=== PATIENT | male | born 1945 | race Caucasian/White ===

== ENCOUNTER → 2022-05-12 09:32 | Outpatient (CLI) | payer MEDICARE, SELFPAY ==
[2022-05-12 10:37] LABS: Anion Gap 11.4 mEq/L (5-15); Blood Urea Nitrogen 17 mg/dl (9-20); Calcium 8.3 mg/dl (8.4-10.2); Carbon Dioxide 26 mmol/L (22.0-30.0); Chloride 106 mmol/L (98-107); Estimated Glomerular Filt Rate 54 ml/min (>60); GFR (African American) 65 ML/MIN (>60); Glucose 174 mg/dl (74-100); Potassium 4.4 mmoL/L (3.5-5.1); Sodium 139 mmol/L (136-145)
[2022-05-12 11:01] LABS: Hemoglobin A1C 9.2 % (4.0-6.0)
== END ==
PROVIDERS: PCP Family Medicine; Visit Provider Family Medicine
DX: R73.9 Hyperglycemia, unspecified (principal)
CPT/HCPCS: 36415; 80048; 83036

== ENCOUNTER → 2022-11-14 17:50 | Outpatient (CLI) | payer MEDICARE, SELFPAY ==
[2022-11-14 18:30] LABS: Basophils # 0.1 K/mm3 (0-0.2); Basophils % 0.7 % (0.1-2.0); Eosinophils # 0.3 K/mm3 (0.0-0.4); Eosinophils % 4.4 % (0.1-12.0); Hematocrit 34.9 % (42.0-52.0); Hemoglobin 11.2 g/dL (14.1-18.0); Lymphocytes # 1.4 K/mm3 (0.7-4.5); Lymphocytes % 18.7 % (10-50); Mean Corpuscular Hemoglobin 30.5 pg (27.0-31.2); Mean Corpuscular Volume 95.3 fl (80-94); Mean Platelet Volume 7.9 fl (7.4-10.4); Monocytes # 0.6 K/mm3 (0.1-1.0); Monocytes % 8.3 % (1.7-9.3); Neutrophils # 5.1 K/mm3 (1.8-7.8); Neutrophils % 67.9 % (37.0-80.0); Platelet Count 171 K/mm3 (142-424); Red Blood Count 3.66 M/mm3 (4.60-6.20); Red Cell Distribution Width 13.9 % (11.5-17.5); White Blood Count 7.5 K/mm3 (4.8-10.8)
[2022-11-14 18:48] LABS: Alanine Aminotransferase 36 U/L (12-78); Albumin Level 3.4 g/dl (3.5-5.0); Albumin/Globulin Ratio 0.9 (1.1-1.8); Alkaline Phosphatase 231 U/L (38-126); Anion Gap 14.4 mEq/L (5-15); Aspartate Amino Transferase 48 U/L (17-59); Bilirubin,Total 0.4 mg/dl (0.2-1.3); Blood Urea Nitrogen 19 mg/dl (9-20); Calcium 8.5 mg/dl (8.4-10.2); Carbon Dioxide 27 mmol/L (22.0-30.0); Chloride 102 mmol/L (98-107); Creatine Kinase 54 U/L (55-170); Estimated Glomerular Filt Rate 65 ml/min (>60); GFR (African American) 79 ML/MIN (>60); Globulin 3.8 g/dL (1.3-3.2); Glucose 108 mg/dl (74-100); Potassium 4.4 mmoL/L (3.5-5.1); Sodium 139 mmol/L (136-145); Total Protein,Serum 7.2 g/dl (6.3-8.2)
[2022-11-14 18:54] LABS: C-Reactive Protein 24.8 mg/L (0-4)
[2022-11-14 19:45] LABS: Erythrocyte Sedimentation Rate 71 mm/hr (0-20)
== END ==
PROVIDERS: PCP Internal Medicine Infectious Disease; Visit Provider Internal Medicine Infectious Disease
DX: R78.81 Bacteremia (principal); T81.49XD Infection following a procedure, other surgical site, subsequent encounter; R79.82 Elevated C-reactive protein (CRP)
CPT/HCPCS: 80053; 82550; 85025; 85651; 86140

== ENCOUNTER → 2022-11-21 17:40 | Outpatient (CLI) | payer MEDICARE, SELFPAY ==
[2022-11-21 19:27] LABS: Basophils % 0.1 % (0.1-2.0); Eosinophils # 0.8 K/mm3 (0.0-0.4); Eosinophils % 9.7 % (0.1-12.0); Hematocrit 33.8 % (42.0-52.0); Hemoglobin 10.9 g/dL (14.1-18.0); Lymphocytes % 11.9 % (10-50); Mean Corpuscular HGB Conc 32.1 g/dL (31.8-35.4); Mean Corpuscular Volume 93.3 fl (80-94); Mean Platelet Volume 8.7 fl (7.4-10.4); Monocytes # 0.8 K/mm3 (0.1-1.0); Monocytes % 9.2 % (1.7-9.3); Neutrophils # 5.9 K/mm3 (1.8-7.8); Neutrophils % 68.9 % (37.0-80.0); Platelet Count 132 K/mm3 (142-424); Red Blood Count 3.62 M/mm3 (4.60-6.20); White Blood Count 8.5 K/mm3 (4.8-10.8)
[2022-11-21 19:36] LABS: Alanine Aminotransferase 39 U/L (12-78); Albumin Level 3.1 g/dl (3.5-5.0); Albumin/Globulin Ratio 0.8 (1.1-1.8); Alkaline Phosphatase 199 U/L (38-126); Aspartate Amino Transferase 59 U/L (17-59); Bilirubin,Total 0.5 mg/dl (0.2-1.3); Blood Urea Nitrogen 17 mg/dl (9-20); Calcium 8.2 mg/dl (8.4-10.2); Carbon Dioxide 23 mmol/L (22.0-30.0); Chloride 103 mmol/L (98-107); Creatine Kinase 50 U/L (55-170); Estimated Glomerular Filt Rate 65 ml/min (>60); GFR (African American) 79 ML/MIN (>60); Globulin 3.9 g/dL (1.3-3.2); Glucose 110 mg/dl (74-100); Sodium 138 mmol/L (136-145)
[2022-11-21 19:42] LABS: C-Reactive Protein 126.5 mg/L (0-4)
[2022-11-21 19:59] LABS: Erythrocyte Sedimentation Rate 103 mm/hr (0-20)
== END ==
PROVIDERS: PCP Orthopaedic Surgery; Visit Provider Orthopaedic Surgery
DX: T81.49XD Infection following a procedure, other surgical site, subsequent encounter (principal); Z79.2 Long term (current) use of antibiotics
CPT/HCPCS: 80053; 82550; 85025; 85651; 86140

== ENCOUNTER → 2022-11-28 16:05 | Outpatient (CLI) | payer MEDICARE, SELFPAY ==
[2022-11-28 17:56] LABS: Basophils % 0.4 % (0.1-2.0); Eosinophils # 0.8 K/mm3 (0.0-0.4); Hematocrit 31.5 % (42.0-52.0); Lymphocytes # 0.8 K/mm3 (0.7-4.5); Mean Corpuscular HGB Conc 31.7 g/dL (31.8-35.4); Mean Corpuscular Hemoglobin 29.4 pg (27.0-31.2); Mean Corpuscular Volume 92.7 fl (80-94); Mean Platelet Volume 8.7 fl (7.4-10.4); Monocytes # 0.5 K/mm3 (0.1-1.0); Monocytes % 7.6 % (1.7-9.3); Neutrophils # 4.3 K/mm3 (1.8-7.8); Neutrophils % 66.9 % (37.0-80.0); Platelet Count 132 K/mm3 (142-424); Red Cell Distribution Width 14.3 % (11.5-17.5); White Blood Count 6.4 K/mm3 (4.8-10.8)
[2022-11-28 18:00] LABS: Chloride 107 mmol/L (98-107); Potassium 3.8 mmoL/L (3.5-5.1); Sodium 141 mmol/L (136-145)
[2022-11-28 18:02] LABS: Alanine Aminotransferase 44 U/L (12-78); Aspartate Amino Transferase 51 U/L (17-59); Blood Urea Nitrogen 9 mg/dl (9-20); Estimated Glomerular Filt Rate 82 ml/min (>60); GFR (African American) 99 ML/MIN (>60)
[2022-11-28 18:03] LABS: Albumin Level 2.5 g/dl (3.5-5.0); Albumin/Globulin Ratio 0.6 (1.1-1.8); Alkaline Phosphatase 200 U/L (38-126); Anion Gap 12.8 mEq/L (5-15); Bilirubin,Total 0.3 mg/dl (0.2-1.3); Calcium 8.4 mg/dl (8.4-10.2); Carbon Dioxide 25 mmol/L (22.0-30.0); Creatine Kinase 88 U/L (55-170); Glucose 131 mg/dl (74-100); Total Protein,Serum 6.5 g/dl (6.3-8.2)
[2022-11-28 18:08] LABS: C-Reactive Protein 63.5 mg/L (0-4)
[2022-11-28 18:27] LABS: Erythrocyte Sedimentation Rate > 140 mm/hr (0-20)
== END ==
PROVIDERS: PCP Internal Medicine Infectious Disease; Visit Provider Internal Medicine Infectious Disease
DX: Z79.2 Long term (current) use of antibiotics (principal); T81.49XD Infection following a procedure, other surgical site, subsequent encounter
CPT/HCPCS: 80053; 82550; 85025; 85651; 86140

== ENCOUNTER → 2022-12-05 11:07 | Outpatient (CLI) | payer MEDICARE, SELFPAY ==
[2022-12-05 11:40] LABS: Basophils % 0.5 % (0.1-2.0); Eosinophils # 0.4 K/mm3 (0.0-0.4); Eosinophils % 6.2 % (0.1-12.0); Hematocrit 32.2 % (42.0-52.0); Hemoglobin 10.3 g/dL (14.1-18.0); Lymphocytes # 0.8 K/mm3 (0.7-4.5); Lymphocytes % 13.3 % (10-50); Mean Corpuscular HGB Conc 32.1 g/dL (31.8-35.4); Mean Corpuscular Hemoglobin 29.9 pg (27.0-31.2); Mean Corpuscular Volume 93.2 fl (80-94); Mean Platelet Volume 7.9 fl (7.4-10.4); Monocytes # 0.4 K/mm3 (0.1-1.0); Monocytes % 6.5 % (1.7-9.3); Neutrophils # 4.1 K/mm3 (1.8-7.8); Neutrophils % 73.4 % (37.0-80.0); Platelet Count 135 K/mm3 (142-424); Red Blood Count 3.46 M/mm3 (4.60-6.20); Red Cell Distribution Width 14.6 % (11.5-17.5); White Blood Count 5.6 K/mm3 (4.8-10.8)
[2022-12-05 12:03] LABS: Erythrocyte Sedimentation Rate 127 mm/hr (0-20)
[2022-12-05 12:22] LABS: Alanine Aminotransferase 29 U/L (12-78); Albumin Level 2.7 g/dl (3.5-5.0); Albumin/Globulin Ratio 0.6 (1.1-1.8); Alkaline Phosphatase 165 U/L (38-126); Anion Gap 15.2 mEq/L (5-15); Aspartate Amino Transferase 37 U/L (17-59); Bilirubin,Total 0.4 mg/dl (0.2-1.3); Blood Urea Nitrogen 10 mg/dl (9-20); Calcium 8.4 mg/dl (8.4-10.2); Carbon Dioxide 26 mmol/L (22.0-30.0); Chloride 105 mmol/L (98-107); Creatine Kinase 50 U/L (55-170); Estimated Glomerular Filt Rate 59 ml/min (>60); GFR (African American) 71 ML/MIN (>60); Globulin 4.4 g/dL (1.3-3.2); Glucose 96 mg/dl (74-100); Potassium 4.2 mmoL/L (3.5-5.1); Sodium 142 mmol/L (136-145); Total Protein,Serum 7.1 g/dl (6.3-8.2)
[2022-12-05 12:30] LABS: C-Reactive Protein 16.8 mg/L (0-4)
== END ==
PROVIDERS: PCP Internal Medicine Infectious Disease; Visit Provider Internal Medicine Infectious Disease
DX: R78.81 Bacteremia (principal); T81.49XD Infection following a procedure, other surgical site, subsequent encounter
CPT/HCPCS: 80053; 82550; 85025; 85651; 86140

== ENCOUNTER → 2022-12-12 20:19 | Outpatient (CLI) | payer MEDICARE, SELFPAY ==
[2022-12-12 21:42] LABS: Basophils % 0.4 % (0.1-2.0); Eosinophils # 0.3 K/mm3 (0.0-0.4); Eosinophils % 6.1 % (0.1-12.0); Hematocrit 31.6 % (42.0-52.0); Hemoglobin 10.2 g/dL (14.1-18.0); Lymphocytes # 0.8 K/mm3 (0.7-4.5); Lymphocytes % 19.8 % (10-50); Mean Corpuscular HGB Conc 32.1 g/dL (31.8-35.4); Mean Corpuscular Hemoglobin 29.5 pg (27.0-31.2); Mean Corpuscular Volume 91.8 fl (80-94); Mean Platelet Volume 9.8 fl (7.4-10.4); Monocytes # 0.4 K/mm3 (0.1-1.0); Monocytes % 9.6 % (1.7-9.3); Neutrophils # 2.6 K/mm3 (1.8-7.8); Neutrophils % 64.1 % (37.0-80.0); Platelet Count 92 K/mm3 (142-424); Red Blood Count 3.45 M/mm3 (4.60-6.20)
[2022-12-12 21:44] LABS: Chloride 106 mmol/L (98-107); Potassium 3.9 mmoL/L (3.5-5.1); Sodium 142 mmol/L (136-145)
[2022-12-12 21:46] LABS: Alanine Aminotransferase 38 U/L (12-78); Alkaline Phosphatase 208 U/L (38-126); Aspartate Amino Transferase 64 U/L (17-59); Bilirubin,Total 0.4 mg/dl (0.2-1.3); Blood Urea Nitrogen 8 mg/dl (9-20); Estimated Glomerular Filt Rate 82 ml/min (>60); GFR (African American) 99 ML/MIN (>60)
[2022-12-12 21:47] LABS: Albumin Level 2.6 g/dl (3.5-5.0); Albumin/Globulin Ratio 0.6 (1.1-1.8); Anion Gap 15.9 mEq/L (5-15); Calcium 8.4 mg/dl (8.4-10.2); Carbon Dioxide 24 mmol/L (22.0-30.0); Creatine Kinase 72 U/L (55-170); Globulin 4.2 g/dL (1.3-3.2); Glucose 109 mg/dl (74-100); Total Protein,Serum 6.8 g/dl (6.3-8.2)
[2022-12-12 22:14] LABS: C-Reactive Protein 13.2 mg/L (0-4)
[2022-12-12 23:13] LABS: Erythrocyte Sedimentation Rate 101 mm/hr (0-20)
== END ==
PROVIDERS: PCP Internal Medicine Infectious Disease; Visit Provider Internal Medicine Infectious Disease
DX: R78.81 Bacteremia (principal); T81.49XD Infection following a procedure, other surgical site, subsequent encounter
CPT/HCPCS: 80053; 82550; 85025; 85651; 86140

== ENCOUNTER → 2023-03-12 12:09 | Outpatient (CLI) | payer OTHER, SELFPAY ==
--- OUTSIDE RECORDS SUMMARY | 2023-03-12 12:12 | XMS_ITS | Clinical Summary ---
Author Name Unknown Address [address] [place] [address] Phone Organization [facility] Address [address] [place] [address] Phone Care Team Providers Care Aquaculture Director Name Role Phone Darrius Cole MD Unavailable [phone] TREMAYNE REY MD Primary Care Provider [phone] Reason for Visit and Chief Complaint The Chief Complaint is: L4-L5 Fusion POV Problems Includes: Problems addressed during this encounter and other active Problems All Visits Onset Date Resolved Date Provider Condition S tatus Lower Back Pain Radiating To the Legs 07/08/2018 Darrius Cole MD Active Plan of Treatment Fall Risk Assessment: This patient has been identified as a fall risk. Balance/gait along with postural blood pressure, vision and home fall hazards have been assessed. Medications have been reviewed, and recommendations made with regard to contributing factors for future falls. Plan of care: Consideration of vitamin D supplementation along with balance and strength training with consideration for formal physical therapy has been discussed with the patient. - Last Documented On 12/07/2022 4:18PM ; [facility] Patient was seen by myself and Dr. Douglas Mendoza PA-C. Patient will follow up 6 weeks repeat lumbar spine x-rays. His laboratory markers are likely just elevated still from the surgery itself. We will let infectious disease just continue to monitor these presently we do not feel we need to get an MRI of his back. - Last Documented On 12/07/2022 4:18PM ; [facility] Future Appointments Date Time Loc
--- OUTSIDE RECORDS SUMMARY | 2023-03-12 12:12 | XMS_ITS | Clinical Summary ---
Author Name Unknown Address [address] [place] [address] Phone Organization [facility] , [facility] Address [address] [place] [place] [address] Phone Care Team Providers Care Banquet Attendant Name Role Phone Darrius Cole MD Unavailable [phone] TREMAYNE REY MD Primary [...] with the patient. - Last Documented On 01/26/2023 9:18AM ; [facility], [facility] Future Appointments Date Time Location Provi daniel Follow [facility]2023 8[facility] EMMONAKEvin Cole MD Instructions to patient Lose weight
--- OUTSIDE RECORDS SUMMARY | 2023-03-12 12:12 | XMS_ITS ---
Care Plan - [facility], [facility] Created on: March 12, 2023 Roly Cole : 1945 Sex: Male Author Name Unknown Address [address] [place] [address] Phone Organization [facility] Address [address] [place] [address] Phone Care Team Providers Care Wet And Dry Sugar Bin Operator Name Role Phone Darrius Cole MD Unavailable [phone] TREMAYNE REY MD Primary Care Provider [phone]
--- OUTSIDE RECORDS SUMMARY | 2023-03-12 12:12 | XMS_ITS ---
Author Name Unknown Address [address] [place] [address] Phone Organization [facility] Address [address] [place] [address] Phone Care Team Providers Care Application Support Administrator Name Role Phone Darrius Cole MD Unavailable [phone] TREMAYNE REY MD Primary Care Provider [phone] Problems Includes: Active, inactive, and resolved Problems All Visits Onset Date Resolved Date Provider Condition S tatus Lower Back Pain Radiating To the Legs 07/08/2018 Darrius Cole MD Active Plan of Treatment Pending Tests Order Diagnosis Results Due Ordering P rovider Radiology - MRI MRI Lumbar Spine 02/07/22 Edwin Mendoza PA-C Future Appointments Date Time Location Provi daniel Follow Up 04/26/2023 8:15[facility] [place] Darrius Cole MD Instructions to patient Lose weight Last Documented On 3 9:33AM ; [facility] Lose weight Last Documented On 3 10:20AM ; [facility] Lose weight Last Documented On 3 1:05PM ; B
--- OUTSIDE RECORDS SUMMARY | 2023-03-12 12:13 | XMS_ITS | Clinical Summary ---
Author Name Unknown Address [address] [place] [address] Phone Organization [facility] Address [address] [place] [address] Phone Care Team Providers Care Manager Hematology Name Role Phone Darrius Cole MD Unavailable [phone] TREMAYNE REY MD Primary Care Provider [phone] Reason for Visit and Chief Complaint The Chief Complaint is: L4-5 Fusion Problems Includes: Problems addressed during this encounter [...] with the patient. - Last Documented On 11/15/2022 1:42PM ; [facility] Patient was seen by myself Basil Mendoza PA-C. Patient will follow up in one week we will take every other staple out today put a dressing on this and follow back up in a week no longer use the incisional wound VAC - Last Documented On 11/15/2022 1:42PM ; [facility] Pending Tests Order Diagnosis Results Due [facility] - [facility] MRI Lumbar Spine 02/07/22 Edwin
--- OUTSIDE RECORDS SUMMARY | 2023-03-12 12:13 | XMS_ITS | Clinical Summary ---
Author Name Unknown Address [address] [place] [address] Phone Organization [facility] , [facility] Address [address] [place] [address] Phone Care Team Providers Care Die Drawing Checker Name Role Phone Darrius Cole MD Unavailable [phone] TREMAYNE REY MD Primary Care Provider [phone] Reason for Visit and Chief Complaint The Chief Complaint is: La-L5 Fusion POV Problems Includes: Problems addressed during [...] with the patient. - Last Documented On 11/22/2022 1:43PM ; [facility] Patient was seen by myself Basil Mendoza PA-C. Patient will follow up in [address] Cole we will get the rest of della out today we will get repeat x-rays next visit he will continue to follow-up with infectious disease. - Last Documented On 11/22/2022 1:43PM ; [facility] Pending Tests Order Diagnosis Results Due Ordering rovider Radiology - MRI MRI Lumbar Spine
--- OUTSIDE RECORDS SUMMARY | 2023-03-12 12:14 | XMS_ITS | Clinical Summary ---
Author Name Unknown Address [address] [place] [address] Phone Organization [facility], [facility] Address [address] [place] [address] Phone Care Team Providers Care Admiralty Lawyer Name Role Phone Douglas SOW, Darrius Witt Unavailable [phone] TREMAYNE REY MD Primary Care Provider [phone] Reason for Visit and Chief Complaint BRACE FITTING Problems Includes: Problems addressed during this encounter and other active Problems All Visits Onset Date Resolved Date Provider Condition S tatus Lower Back Pain Radiating To the Legs 07/08/2018 Darrius Cole MD Active Plan of Treatment Future Appointments Date Time Location Provi daniel Follow Up 04/26/2023 8:15AM [facility] Darrius Cole MD Assessments Includes: Assessments from this encounter No Assessments Recorded Medical Equipment - Implanted Devices Includes: Current Devices No Medical Equipment Recorded Medications Includes: Medications discussed during this encounter and other current Medications Current Medications (continue as prescribed) metFORMIN HCl 500 MG Oral Tablet 11/07/2022 Provider : TREMAYNE REY MD Diagnosis:
--- NOTE | 2023-03-12 12:23 | CA_ITS ---
APPROVED REPORT EXAM: Comprehensive 2D, Doppler, and color-flow Echocardiogram Irradiated Fuel Handler: Lindy Norris RVT Ht: 5 ft 8 in Wt: 178lbs BSA: 1.94 BP: 122/80 mmHg Indications: ISCHEMIC HEART DISEASE,DM,HTN 2D Dimensions LVOT 2.17 cm (M/F) 1.5-2.5 LA Volume 51.30 mL LA Volume Index 26.31 mL/m2 (M/F) 16-34 M-Mode Dimensions RVDd 3.54 cm (0.9-2.6) LA Diam 4.28 cm (1.9-4.0) LVDd 4.63 cm (3.5-5.7) Ao Diam 3.35 cm (2.0-3.7) LVDs 3.14 cm (3.5-5.7) IVSd 1.13 cm (0.6-1.1) PWd 0.48 cm (0.6-1.1) EF (Teich) 60.40% FS 32.20% EDV (Teich) 98.80 mL ESV (Teich) 39.10 mL LV Diastology E Decel Time 150.00 (160-240 msec) E/A Ratio 0.9 MED E' 7.30 (< 7 cm/sec) E'/MED E' Ratio 9.81 (>14) LAT E' 8.30 (<10 cm/sec) E/LAT E' Ratio 8.63 (>14) Aortic Valve LVOT Max 73.00 (70-110 cm/s) LVOT VTI 16.71 cm AoV Peak Jewel. 97.00 (50-130 cm/s) AO Peak GR. 3.80 mmHg AO Mean GR. 1.70 (<5 mmHg) AO VTI 18.17 (18-25 cm) JEANNIE (VTI) 3.40 (2.5-4.5 cm2) Mitral Valve MV E Max Jewel. 72.00 (40-130 cm/s) MV A Velocity 78.00 (40-130 cm/s) E/A Ratio 0.92 MV Decel. Time 150.00 (160-240 ms) MV PHT 44.00 ms Pulmonary Valve PV Peak Velocity 60.00 (50-150 cm/s) Tricuspid Valve TR P. Velocity 174.00 cm/s RAP Estimate 10.00 mmHg RVSP 22.20 mmHg Left Ventricle The left ventricle is normal size. The left ventricular systolic function is normal. The left ventricular ejection fraction is within the normal range. There is increased LV wall thickness. There is normal LV segmental wall motion. The left ventricular diastolic function is normal. LVEF is 50-55%. Right Ventricle The right ventricle is mildly dilated. The right ventricular systolic function is normal. Atria The left atrium size is normal. The right atrium size is normal. There is no Doppler evidence of interatrial shunt. Aortic Valve The aortic valve is trileaflet. The aortic valve opens well. There is no aortic valvular stenosis. Trace aortic regurgitation. Mitral Valve Mild mitral annular calcification. The mitral valve leaflets are mildly thickened. There is mild thickening of the mitral valve chordae. Mild mitral regurgitation. Tricuspid Valve The tricuspid valve leaflets are thin and pliable. Trace tricuspid regurgitation. RVSP is 20- 25 mmHg. Pulmonic Valve The pulmonary valve is normal in structure. Trace pulmonic regurgitation. Great Vessels The aortic root is normal in size. The ascending aorta is not well-visualized. IVC is normal in size and collapses >50% with inspiration. Pericardium There is no pericardial effusion. Other Information Study Quality: Fair Conclusion Normal biventricular systolic function. Mild RV dilation. Mild MR. Electronically signed by : Yudelka Jeter MD 03/18/2023 19:49:19
== END ==
LOC: RT 12:10
PROVIDERS: PCP Family Medicine; Visit Provider Chiropractor
DX: I25.9 Chronic ischemic heart disease, unspecified (principal)
CPT/HCPCS: 93306

== ENCOUNTER 2023-05-21 20:02 | Outpatient (CLI) | payer MEDICARE, SELFPAY ==
[2023-05-21 17:28] LABS: Microalbumin/Creatinine Ratio 11.6
[2023-05-21 17:32] LABS: Creatinine,Urine Random 106 mg/dL (Not Estab.)
[2023-05-21 17:42] LABS: Chloride 106 mmol/L (98-107); Sodium 135 mmol/L (136-145)
[2023-05-21 17:43] LABS: Potassium 4.8 mmoL/L (3.5-5.1)
[2023-05-21 17:45] LABS: Alanine Aminotransferase 27 U/L (12-78); Albumin Level 3.6 g/dl (3.5-5.0); Albumin/Globulin Ratio 0.9 (1.1-1.8); Alkaline Phosphatase 160 U/L (38-126); Anion Gap 9.8 mEq/L (5-15); Aspartate Amino Transferase 47 U/L (17-59); Bilirubin,Total 0.7 mg/dl (0.2-1.3); Blood Urea Nitrogen 17 mg/dl (9-20); Carbon Dioxide 24 mmol/L (22.0-30.0); Cholesterol 98 mg/dl (140-200); Estimated Glomerular Filt Rate 42 ml/min (>60); GFR (African American) 51 ML/MIN (>60); Globulin 4.1 g/dL (1.3-3.2); Glucose 112 mg/dl (74-100); Total Protein,Serum 7.7 g/dl (6.3-8.2); Triglycerides 69 mg/dl (30-150); VLDL Cholesterol 14 mg/dL (0-40)
[2023-05-21 17:46] LABS: Calcium 8.7 mg/dl (8.4-10.2); Chol/HDL Ratio 2.8 (1-3.5); HDL Cholesterol 35 mg/dl (40-60)
[2023-05-21 17:49] LABS: Basophils % 0.6 % (0.1-2.0); Eosinophils # 0.2 K/mm3 (0.0-0.4); Eosinophils % 3.4 % (0.1-12.0); Hematocrit 37.1 % (42.0-52.0); Hemoglobin 12.2 g/dL (14.1-18.0); Lymphocytes % 23.6 % (10-50); Mean Corpuscular HGB Conc 32.9 g/dL (31.8-35.4); Mean Corpuscular Volume 85.1 fl (80-94); Mean Platelet Volume 9.7 fl (7.4-10.4); Monocytes # 0.4 K/mm3 (0.1-1.0); Monocytes % 8.9 % (1.7-9.3); Neutrophils # 2.7 K/mm3 (1.8-7.8); Neutrophils % 63.5 % (37.0-80.0); Platelet Count 116 K/mm3 (142-424); Red Blood Count 4.36 M/mm3 (4.60-6.20); White Blood Count 4.3 K/mm3 (4.8-10.8)
[2023-05-21 17:56] LABS: Direct LDL Cholesterol 47.76 mg/dL (100-129)
[2023-05-21 18:04] LABS: Hemoglobin A1C 6.1 % (4.0-6.0)
[2023-05-21 18:16] LABS: Thyroid Stimulating Hormone 6.46 uIU/mL (0.465-4.68)
== END 2023-05-21 23:59 ==
LOC: LAB.DROPOF 20:03
PROVIDERS: PCP Family Medicine; Visit Provider Family Medicine
DX: I10 Essential (primary) hypertension (principal); E11.9 Type 2 diabetes mellitus without complications; E78.5 Hyperlipidemia, unspecified; E03.9 Hypothyroidism, unspecified
CPT/HCPCS: 80053; 80061; 82043; 82570; 83036; 84443; 85025

== ENCOUNTER 2023-06-06 18:02 | Outpatient (CLI) | payer MEDICARE, SELFPAY ==
[2023-06-06 16:56] LABS: Anion Gap 8.4 mEq/L (5-15); Blood Urea Nitrogen 16 mg/dl (9-20); Calcium 9.1 mg/dl (8.4-10.2); Carbon Dioxide 29 mmol/L (22.0-30.0); Chloride 108 mmol/L (98-107); Estimated Glomerular Filt Rate 54 ml/min (>60); GFR (African American) 65 ML/MIN (>60); Glucose 122 mg/dl (74-100); Potassium 4.4 mmoL/L (3.5-5.1); Sodium 141 mmol/L (136-145)
[2023-06-06 17:28] LABS: Thyroid Stimulating Hormone 5.12 uIU/mL (0.465-4.68)
== END 2023-06-06 23:59 ==
LOC: LAB.DROPOF 18:05
PROVIDERS: PCP Family Medicine; Visit Provider Family Medicine
DX: N28.9 Disorder of kidney and ureter, unspecified (principal); E03.9 Hypothyroidism, unspecified; I10 Essential (primary) hypertension; E11.9 Type 2 diabetes mellitus without complications; Z79.899 Other long term (current) drug therapy
CPT/HCPCS: 80048; 84443

== ENCOUNTER 2024-06-03 18:22 | Emergency (ER) | payer MEDICARE, SELFPAY ==
[2024-06-03 18:22] VITALS: BP 173/80; PULSE 81; RESP 18; TEMP 36.6; O2SAT 99; BMI 29.5
--- NOTE | 2024-06-03 19:01 | PC.NURSE ---
ROUNDED ON THE PT. THE PT VOICES THAT HE DOES NOT NEED ANYTHING AT THIS TIME. CALL LIGHT IS WITHIN REACH OF THE PT.
--- NOTE | 2024-06-03 19:41 | CT_ITS ---
PROCEDURE INFORMATION: Exam: CT Lumbar Spine Without Contrast Exam date and time: 06/03/2024 7:56 PM Age: 79 years old Clinical indication: Injury or trauma; Fall; Blunt trauma (contusions or hematomas); Additional info: Fall, L sided new sciatica TECHNIQUE: Imaging protocol: Computed tomography of the lumbar spine without contrast. Radiation optimization: All CT scans at this facility use at least one of these dose optimization techniques: automated exposure control; mA and/or kV adjustment per patient size (includes targeted exams where dose is matched to clinical indication); or iterative reconstruction. COMPARISON: No relevant prior studies available. FINDINGS: Bones/joints: Posterior fusion of L4-L5. There is lucency around the left pedicle screws of L4 and L5 as well as the right pedicle screw of L5. Multilevel degenerative changes of the lumbar spine producing multiple levels of mild spinal canal stenosis. Lungs: Mild scarring and atelectasis in the lower lungs. Spleen: Mild splenomegaly. Kidneys and ureters: Nonobstructing right renal calculus. Stomach and bowel: Moderate sigmoid diverticulosis without diverticulitis. There is a very short segment of small bowel in the pelvis on image 90 series 3 that is mildly dilated. This is most likely peristalsis, less likely mild ileus. Soft tissues: Unremarkable. IMPRESSION: 1. No acute fracture or malalignment of the lumbar spine. 2. Posterior fusion of L4-L5. There is lucency around the left pedicle screws of L4 and L5 as well as the right pedicle screw of L5. This favors chronic loosening. 3. Nonobstructing right renal calculus.
[2024-06-03] MEDS: predniSONE 20MG TAB 40 MG PO (19:51)
[2024-06-03] MEDS: METHOCARBAMOL 500MG TABLET 1500 MG PO (19:51)
[2024-06-03] MEDS: ACETAMINOPHEN 500MG TAB 1000 MG PO (19:51)
--- NOTE | 2024-06-03 20:29 | HMH.EDGENADL ---
Discharge Plan Disposition Patient Disposition: Home, Self-Care Prescriptions Prescriptions: New prednisone 20 mg tablet 40 mg PO DAILY 5 Days Qty: 10 0RF methocarbamol 750 mg tablet 1,500 mg PO TID 5 Days Qty: 30 0RF No Action sulfamethoxazole-trimethoprim [Bactrim DS] 800-160 mg tablet 1 tab PO BID 10 Days Qty: 20 0RF codeine-guaifenesin 10-100 mg/5 mL liquid 5 ml PO Q6H PRN (Reason: cough) Qty: 120 1RF furosemide 20 mg tablet 20 mg PO DAILY potassium chloride 10 mEq tablet extended release 10 meq PO DAILY Jardiance 10 mg tablet 10 mg PO DAILY atorvastatin 40 mg tablet 40 mg PO HS aspirin 81 mg tablet,delayed release (DR/EC) 81 mg PO DAILY levothyroxine 100 mcg tablet 100 mcg PO DAILY 90 Days Qty: 90 0RF Referrals Follow up/Referrals: Heidi Barksdale PA [Primary Care Provider] - See instructions Activity Restrictions/Add. Instructions Additional Instructions/Restrictions: Call your family doctor to establish care for this visit to the emergency department and schedule follow-up within 48 hours to ensure improvement. If you have any worsening of your condition or any other concerning signs or symptoms, return to the emergency department or your primary care doctor for further evaluation. Muscle relaxer 3 times daily as needed. Robaxin can cause you to feel drowsy. Do not drive, operate heavy machinery, or engage in any activity that may make you tired, fall asleep, and because harm to yourself or others while taking this medication. Prednisone each morning for the next 4 days. Keep close eyes on your sugars and make sure that your glucose is not having significant rises. Also be strict about diet while on prednisone to prevent significant glucose spikes. Clinical Impressions Clinical Impression: Lumbosacral radiculopathy Instructions Patient Instructions: DI for Low Back Pain Print Language Print Language: Lao Discharge ED Provider: Souleymane Espinoza General Adult HPI General Chief complaint: Back Pain/Injury Stated complaint: BACK PAIN Time Seen by Provider: 06/03/24 18:43 Mode of Arrival: EMS Source of Information: Patient Limitations: No Limitations Description of Symptoms (Recalled from ER Triage Doc. by RN): Pt arrives via [facility] ems for evaluation of back pain. 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 [facility] and was in the bathroom and was unable to get off the toilet. Since then pt has not been able to tolerate walking, and has had a constant sharp pain. Pt has a hx of back sugery History of Present Illness HPI narrative: Please note that above description of symptoms, in this electronic medical record under categorization of recalled from ER triage doctor by RN are reflective of an initial nursing assessment, however, is not reflective of my full history and physical exam that was personally taken and clarified. Consequentially, this preceding description of symptoms, which may include the patient's categorized chief complaint in the EMR, do not reflect my personal clinical impression, and the ultimate description of history of present illness and patient stated complaints should be deferred to this section of the note. Unless stated otherwise or congruent with this section of the note, additional signs, symptoms, or incongruence should be interpreted as inaccurate with my clinical impression. Related Data Home Medications ?Medication ?Instructions ?Recorded ?Confirmed aspirin 81 mg tablet,delayed 81 mg PO DAILY 09/27/22 06/03/24 release atorvastatin 40 mg tablet 40 mg PO HS 09/27/22 06/03/24 empagliflozin 10 mg tablet 10 mg PO DAILY Diabetes 09/27/22 06/03/24 (Jardiance) furosemide 20 mg tablet 20 mg PO DAILY edema 09/27/22 06/03/24 potassium chloride 10 mEq 10 meq PO DAILY 09/27/22 06/03/24 tablet,extended release Previous Rx's ?Medication ?Instructions ?Recorded codeine 10 mg-guaifenesin 100 mg/5 5 ml PO Q6H PRN cough #120 mL 05/21/23 mL oral liquid sulfamethoxazole 800 1 tab PO BID 10 days #20 tabs 05/21/23 mg-trimethoprim 160 mg tablet (Bactrim DS) levothyroxine 100 mcg tablet 100 mcg PO DAILY hypothyroidism 90 06/02/24 days #90 tabs methocarbamol 750 mg tablet 1,500 mg (2 x 750 mg) PO TID 5 06/03/24 days #30 tabs prednisone 20 mg tablet 40 mg (2 x 20 mg) PO DAILY 5 days 06/03/24 #10 tabs Allergies Allergy/AdvReac Type Severity Reaction Status Date / Time Penicillins (PENICILLINS) Allergy Unknown Verified 05/21/23 08:28 cephalexin (From Keflex) Allergy Rash Verified 05/21/23 08:28 [facility] Disclaimer: The information contained in this section may have been updated after the patient was seen, as this information can be updated by other users. Medical History Colon cancer Congestive heart failure Diabetes mellitus Hypertension Sepsis Skin cancer Surgical History H/O hernia repair History of colonoscopy History of partial surgical removal of colon 2008 Previous back surgery Family History Mother Cancer Coronary artery disease Social History Smoking Status: Never smoker alcohol intake: never substance use type: denies use current occupational status: retired Travel in the last 8 weeks: Inside the [place] household members: spouse housing: house Have you lived/traveled outside US in past 30 days?: No Contact w/someone who lives/traveled outside US past 30 days?: No Exposure to someone with infectious disease in past 14 days?: No Do you have a fever (greater than 100.4 F or 38 C)?: No Have you tested positive for COVID-19: No Exposed to someone with COVID-19 in past 14 days?: No Do you have a sore throat?: No Do you have a cough?: No Do you have any weakness?: No Do you have any diarrhea?: No Are you experiencing any unusual bleeding?: No Do you have any muscle aches/pain?: No Do you have any abdominal pain?: No Are you experiencing loss of taste or smell?: No Other Medical History Have you received the Pneumonia Vaccine: Yes ROS Obtained: Yes All systems reviewed & no additional complaints except as documented Physical Exam General General appearance: alert and in distress (Secondary to pain) Head Head exam: atraumatic and normocephalic Eye Eye exam: Present normal appearance, PERRL and EOMI Neck Neck exam: Present normal inspection, full ROM and trachea midline Respiratory Respiratory exam: Absent respiratory distress, wheezes, stridor, accessory muscle use or prolonged expiratory phase Cardiovascular Cardiovascular exam: Present other (Pulses equal symmetric in upper and lower extremities) Abdominal Exam Abdominal exam: Present soft; Absent distention, tenderness or pulsatile mass Extremities Exam Extremities exam: Present edema Neurological Exam Neurological exam: Present alert, oriented X3, CN II-XII intact and reflexes normal; Absent motor sensory deficit Skin Skin exam: Present warm and dry; Absent diaphoresis or erythema Medical Decision Making Medical Records Medical records reviewed: Yes I reviewed the patient's medical records. Screening: Per USPSTF and CDC recommendations, given the prevalence of disease in our region, it is our hospital?s policy to screen for HIV and viral Hepatitis for all patients aged 18 and over and those with ongoing risk factors. Arnaud Inquiry Pt receiving controlled substance: No Arnaud was queried for this patient: No Vital Signs: 06/03/24 18:22 Temperature 98 F Temperature Source Oral Pulse Rate [Right] 81 Respiratory Rate 18 Blood Pressure [Right Arm] 173/80 H Blood Pressure Mean [Right Arm] 111 Blood Pressure Source [Right Arm] Automatic Cuff Blood Pressure Position [Right Arm] Sitting 02 Sat by Pulse Oximetry 99 Oxygen Delivery Method Room Air Orders (Tests/Meds): ED MEDICATIONS Discontinued Medications Generic Name Dose Route Start Last Admin Trade Name Freq PRN Reason Stop Dose Admin Acetaminophen 1,000 mg 06/03/24 19:41 06/03/24 19:51 Acetaminophen 500mg Tab PO 06/03/24 19:42 1,000 mg ONCE ONE Administration Methocarbamol 1,500 mg 06/03/24 19:41 06/03/24 19:51 Methocarbamol 500mg Tablet PO 06/03/24 19:42 1,500 mg ONCE ONE Administration Prednisone 40 mg 06/03/24 19:41 06/03/24 19:51 Prednisone 20mg Tab PO 06/03/24 19:42 40 mg ONCE ONE Administration ORDERS Category Date Time Status CT lumbar spine wo con Stat Cat Scan 06/03/24 19:41 Completed Medical Decision Narrative: 79-year-old male history of previous back 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 Patient states that just a few days ago, he had a fall on the ice and had significant immediate back pain at that time. Today states that the pain got worse when he was at the store, was lifting a pack of water and immediately had pain in his back going down his left leg. States that the pain is so bad he could not move his left leg out of fear of exacerbating the pain. No bowel or bladder dysfunction, no weakness in the leg, no sensory deficits. Has not taken anything for the pain. Came in for further evaluation. History was obtained via conversation with patient and family. On arrival, patient hemodynamically stable, alert, oriented x4, appropriate, GCS 15, moving all extremities spontaneously, pupils equal and reactive to light. Full physical exam performed and significant for uncomfortable. Male who is in mild distress secondary to pain. Splinting in bed. Significant pain with any range of motion of hip and dorsiflexion of foot. Neurovascularly intact. Differential includes spine fracture, disc herniation, radiculopathy, radiculitis, sprain, strain, less likely be cauda equina, conus medullaris, among others. Patient placed on continuous cardiac monitoring and continuous pulse ox with initial blood pressure 173/80, heart rate 81, saturation 99. Patient was given oral cocktail for symptomatic management and correction of underlying abnormalities. Independent interpretation of CT spine was negative for any acute hardware failure or fracture. On reevaluation, patient states he is actually feeling much better after muscle relaxer and steroid. He states he does have a history of diabetes and close return precautions were discussed and closed glucose monitoring was also discussed, he voiced his understanding. Given patient presentation, workup, history, this most likely represents radiculopathy versus radiculitis in the setting of fall and lifting. Because patient at baseline without signs or symptoms of clinical decompensation, deemed appropriate for discharge. Results were relayed to patient who voiced understanding and were agreeable to outpatient management and follow up. I discussed my clinical impression with patient and answered all questions. At this time, the evidence for any other entities in the differential is insufficient to warrant any further testing or ED observation. This was explained as well. Advisory was given that persistent or worsening symptoms require further evaluation. I confirmed the understanding of this discussion. Assistant Credit Manager disclaimer Much of this encounter note is an electronic director agricultural services spoken language to printed text. Electronic director agricultural services of the spoken language may permit errors. Although I have reviewed the note, some errors may still exist. Critical Care Critical Care Time Critical Care Time: No
[2024-06-03 21:14] VITALS: BP 124/54; PULSE 75; RESP 18; TEMP 36.6; O2SAT 97
== END 2024-06-03 21:23 | disposition home or self-care (01) ==
PROVIDERS: Emergency Provider Emergency Medicine; PCP Physician Assistant
DX: M54.17 Radiculopathy, lumbosacral region (principal); M54.9 Dorsalgia, unspecified
CPT/HCPCS: 72131; 99284

== ENCOUNTER 2024-06-11 10:55 | Outpatient (POV) | payer MEDICARE, SELFPAY ==
--- NOTE | 2024-06-11 11:06 | EXP.PAIN.OV ---
HPI Data of Consult Patient: new to practice Consult date: 06/11/24 Requesting Physician: Geeta Cole APRN Primary Care Provider: Wing Hutton MD Consult Narrative Reason for consult: Low back pain, leg pain History of present illness: Mr. Cole is a 79 year old male who presents today as a new patient. Today he rates his pain a 6 out of 10. Patient states he has had longstanding chronic back pain and has had a posterior fusion of L4-L5 in the past from Dr. Rizo spine there in [place]. He does state that this was his second surgery on his lumbar spine. Patient does state that the pain will come and go however here recently in the last few weeks he ended up lifting a couple of cases of water at [facility] causing worsening pain. He states the pain was severe and sharp and did affect his ability perform activities of daily living such as cooking and cleaning. He does state that this pain is more into his low back and hips. Patient states that it was bad enough that he had trouble getting up to walk or even driving. He states that stepping up into a vehicle causes worsening pain symptoms. He has been using a cane for help with ambulation. When this did originally occur he did have to go to the ER for evaluation however they were believing it was more a strain or a bruise related injury. Patient did have updated CT imaging when he went to the ER. He states overall the pain is not going into his legs however he does have worsening pain occasionally into his upper thighs when he is up walking or standing for longer periods of time. He has had epidural injections in the past that have helped significantly. He is interested in any options we may be able to try. Patient is not on any scheduled medications however at the ER was given oral steroids and methocarbamol that he does state does help some. He does however state that that methocarbamol did cause fatigue and he could not take it during the day. Patient has had physical therapy multiple times with no improvement. He has tried salon patches and heat and ice. Patient has continued at home stretching exercise for longer than 12 weeks that was physician guided with no additional relief. His Arnaud has been reviewed and is appropriate. CC: Geeta Cole APRN [facility] Disclaimer: The information contained in this section may have been updated after the patient was seen, as this information can be updated by other users. Medical History Colon cancer Congestive heart failure Diabetes mellitus Hypertension Sepsis Skin cancer Surgical History H/O hernia repair History of colonoscopy History of partial surgical removal of colon 2008 Previous back surgery Family History Mother Cancer Coronary artery disease Social History (Updated 06/11/24 @ 11:17 by Ayesha Smith RN) Smoking Status: Never smoker alcohol intake: never substance use type: denies use current occupational status: retired Travel in the last 8 weeks: Inside the [place] household members: spouse housing: house Review of Systems Review of Systems Review of systems:: pertinent systems reviewed and negative unless documented below Review of systems (narrative): Review of Systems: General: No recent weight changes, no fever, no sleep disturbances Respiratory: No cough, no shortness of air, no recurring pulmonary infections Cardiovascular/peripheral vascular: No chest pain, no palpitations, no edema, no shortness of breath Gastrointestinal: No new onset incontinence, normal bowel movements reported Genitourinary: No new onset incontinence Musculoskeletal: Low back pain, bilateral hip pain Psychiatric: [Normal mood/affect] Neurological: [Denies weakness in extremities], [denies balance issues] Meds Home Medications and Allergies Home Medications ?Medication ?Instructions ?Recorded ?Confirmed ?Type aspirin 81 mg tablet,delayed 81 mg PO DAILY 09/27/22 06/03/24 History release atorvastatin 40 mg tablet 40 mg PO HS 09/27/22 06/03/24 History empagliflozin 10 mg tablet 10 mg PO DAILY Diabetes 09/27/22 06/03/24 History (Jardiance) furosemide 20 mg tablet 20 mg PO DAILY edema 09/27/22 06/03/24 History potassium chloride 10 mEq 10 meq PO DAILY 09/27/22 06/03/24 History tablet,extended release codeine 10 mg-guaifenesin 100 mg/5 5 ml PO Q6H PRN cough #120 mL 05/21/23 06/03/24 Rx mL oral liquid sulfamethoxazole 800 1 tab PO BID 10 days #20 tabs 05/21/23 06/03/24 Rx mg-trimethoprim 160 mg tablet (Bactrim DS) levothyroxine 100 mcg tablet 100 mcg PO DAILY hypothyroidism 90 06/02/24 06/03/24 Rx days #90 tabs methocarbamol 750 mg tablet 1,500 mg (2 x 750 mg) PO TID 5 06/03/24 Rx days #30 tabs prednisone 20 mg tablet 40 mg (2 x 20 mg) PO DAILY 5 days 06/03/24 Rx #10 tabs New Prescriptions to Start Prescriptions: Allergies Allergy/AdvReac Type Severity Reaction Status Date / Time Penicillins (PENICILLINS) Allergy Unknown Verified 05/21/23 08:28 cephalexin (From Keflex) Allergy Rash Verified 05/21/23 08:28 Objective Narrative: Physical Exam: General: Alert and oriented x3, no acute distress, pleasant and cooperative Lungs: Respirations even and unlabored, symmetrical chest expansion Eyes: PERRL Musculoskeletal: Flexion and extension of lumbar [spine] somewhat guarded secondary to pain, [antalgic gait noted] point tenderness along bilateral SIs with positive bilateral Chris's, Jono's, Gaenslen's, compression and distraction exam Neurological: Speech clear, no gross sensory deficit Additional findings Additional findings: [facility] Lumbar MRI 10/30/2022 Findings: There are postoperative changes of posterior fusion at L4-L5. Alignment is stable from perioperative exam. Vertebral body heights are preserved. No bone marrow edema. There is no evidence of osteomyelitis/discitis. The cord terminates at L2. There is normal signal within the distal cord. No abnormal enhancement in the distal cord. A fluid collection is seen in the subcutaneous tissues at the midline extending from L2-L5 which extends approximately 8.6 cm on sagittal imaging. Findings favored to represent seroma. There is abnormal soft tissue to the left at the L4 spinous process without enhancement. L1-L2: Annular bulge with degenerative endplate changes and mild bilateral neuroforaminal narrowing. L2-L3: Facet osteoarthropathy without significant canal stenosis or neuroforaminal narrowing. L3-L4: Annular disc bulge with endplate degenerative changes and facet osteoarthropathy. There is mild to moderate canal stenosis. L4-L5: Postoperative changes of fusion. There is moderate canal stenosis with mild to moderate bilateral neuroforaminal narrowing. L5-S1: Degenerative endplate changes without FINDINGS: Bones/joints: Posterior fusion of L4-L5. There is lucency around the left pedicle screws of L4 and L5 as well as the right pedicle screw of L5. Multilevel degenerative changes of the lumbar spine producing multiple levels of mild spinal canal stenosis. Lungs: Mild scarring and atelectasis in the lower lungs. Spleen: Mild splenomegaly. Kidneys and ureters: Nonobstructing right renal calculus. Stomach and bowel: Moderate sigmoid diverticulosis without diverticulitis. There is a very short segment of small bowel in the pelvis on image 90 series 3 that is mildly dilated. This is most likely peristalsis, less likely mild ileus. Soft tissues: Unremarkable. IMPRESSION: 1. No acute fracture or malalignment of the lumbar spine. 2. Posterior fusion of L4-L5. There is lucency around the left pedicle screws of L4 and L5 as well as the right pedicle screw of L5. This favors chronic loosening. 3. Nonobstructing right renal calculus. Assessment and Plan *Assessment and plan (1) Degenerative disc disease: Status: Acute Category: Medical (2) History of lumbar fusion: Status: Acute Category: Surgical Code(s): Z98.1 - Arthrodesis status (3) Bilateral hip pain: Status: Acute Category: Medical Code(s): M25.551 - Pain in right hip; M25.552 - Pain in left hip (4) Bilateral sacroiliitis: Status: Acute Category: Medical Code(s): M46.1 - Sacroiliitis, not elsewhere classified Plan Patient is experiencing worsening pain along the low back and bilateral hips. They did have limited range of motion of the lumbar spine along with point tenderness along bilateral SI joints and a positive bilateral Chris's, Jono's, Gaenslen's, compression and distraction exam. I did discuss with the patient that I do believe they would benefit from bilateral SI injections. Risk and benefits were discussed with the patient and they would like to proceed forward with this option. Patient has tried and failed conservative therapy including continued at home stretching exercise for longer than 12 weeks that was physician guided and previous failed back surgery. I will order the patient a compounded cream and also send in a 2-week dose of baclofen 5 mg 3 times daily as needed. Patient was counseled if it does still cause fatigue that he can break these in half. Patient will be scheduled for bilateral SI injections under fluoroscopy. Patient has been instructed to contact the clinic with any concerns before the next appointment. Dr. Mejia has reviewed this note and agrees with this plan of care. This note was dictated using voice recognition software and make contain errors or omissions. All injections are used with Lidocaine or Bupivacaine and Depo Medrol.
[2024-06-11 11:16] VITALS: BP 146/69; PULSE 69; RESP 18; O2SAT 99; BMI 29.5
== END 2024-06-11 23:59 | disposition home or self-care (01) ==
PROVIDERS: PCP Family Medicine; Visit Provider Nurse Practitioner Family
DX: M46.1 Sacroiliitis, not elsewhere classified (principal); M25.551 Pain in right hip; M25.552 Pain in left hip; Z98.1 Arthrodesis status; Z73.89 Other problems related to life management difficulty
CPT/HCPCS: 99202; G0463

== ENCOUNTER 2024-06-24 14:28 | Day surgery (SDC) | payer MEDICARE, SELFPAY ==
[2024-06-24 14:39] VITALS: BP 120/67; PULSE 72; RESP 16; TEMP 36.8; O2SAT 95; BMI 29.5
--- NOTE | 2024-06-24 14:54 | P.PCN_ITS ---
Procedure Date: 06/24/24 Time: 14:50 Anesthesiologist:: Kehinde Ballesteros CRNA Complications:: None Pre-procedure Diagnosis:: Bilateral sacroiliitis. Degenerative disc lumbar spine multilevels. Lumbar radiculopathy. Lumbar postlaminectomy syndrome. Lumbar spondylosis. Multilevel lumbar facet arthropathy. Post-procedure Diagnosis:: Same Indications for Procedure:: Patient is a pleasant 79-year-old male who comes our clinic today for bilateral sacroiliac joint injections of cortisone and local anesthetic. Patient describes low lumbar back pain off the midline bilaterally. Bilateral posterior hip pain. Difficulty with lumbar flexion, extension, left and right rotation. Reports difficulty transitioning from sitting to standing. He rates his pain 8/10. Procedure Details:: Procedure: Bilateral sacroiliac joint injections under fluoroscopy Informed consent was obtained and the risks and benefits of the procedure were explained to the patient.~ The patient was taken to the procedure room and noninvasive monitors were placed including a noninvasive blood pressure cuff and pulse oximeter.~ The patient was placed prone on the procedure table. Both hips were cleansed using Betadine as a cleansing solution. C-arm fluoroscopy was used to view the right sacroiliac joint.~ The skin and subcutaneous tissues were anesthetized using lidocaine 1.5% and a 25-gauge needle.~ After this, a 22-gauge spinal needle was inserted under fluoroscopic guidance into the inferior aspect of the right sacroiliac joint.~ Omnipaque dye was injected and good spread was seen throughout the joint.~ After this, approximately 5 mL of bupivacaine, 0.25% and Depo-Medrol, 40 mg was incrementally injected into the right sacroiliac joint. We then moved to the left sacroiliac joint.~ The skin and subcutaneous tissues were anesthetized using lidocaine 1.5% and a 25-gauge needle.~ After this, a 22- gauge spinal needle was inserted under fluoroscopic guidance into the inferior aspect of the left sacroiliac joint.~ Omnipaque dye was injected and good spread was seen throughout the joint. After this, approximately 5 mL of bupivacaine, 0.25% and Depo-Medrol, 40 mg was incrementally injected into the left sacroiliac joint.~ The patient tolerated the procedure well with no complications. The patient was observed in the Pain Clinic and then was discharged home neurologically intact. Plan and Disposition:: Patient was discharged without incident.
[2024-06-24 14:56] VITALS: BP 146/70; PULSE 68; RESP 16; O2SAT 98
[2024-06-24] MEDS: BUPIVACAINE 0.25% 10ML INJ 25 MG IJ (16:00)
[2024-06-24 16:01] VITALS: BP 120/67; PULSE 72; RESP 18; O2SAT 95
[2024-06-24] MEDS: methylPREDNISolone ACETATE 80MG/ML VIAL 80 MG (16:01)
[2024-06-24] MEDS: LIDOCAINE 1% 5ML PF VIAL 5 ML (16:01)
[2024-06-24 16:02] VITALS: BP 120/67; PULSE 72; RESP 18; O2SAT 95
== END 2024-06-24 14:56 | disposition home or self-care (01) ==
PROVIDERS: PCP Family Medicine; Visit Provider Nurse Anesthetist, Certified Registered
DX: M46.1 Sacroiliitis, not elsewhere classified (principal); M51.16 Intervertebral disc disorders with radiculopathy, lumbar region; M96.1 Postlaminectomy syndrome, not elsewhere classified; M47.26 Other spondylosis with radiculopathy, lumbar region
CPT/HCPCS: 27096; G0260; J1010

== ENCOUNTER 2024-07-10 10:28 | Outpatient (POV) | payer MEDICARE, SELFPAY ==
[2024-07-10 10:46] VITALS: BP 130/62; PULSE 67; RESP 14; O2SAT 99; BMI 28.3
--- NOTE | 2024-07-10 11:39 | EXP.PAIN.SOA ---
[facility] Disclaimer: The information contained in this section may have been updated after the patient was seen, as this information can be updated by other users. Medical History Colon cancer Congestive heart failure Diabetes mellitus Hypertension Sepsis Skin cancer Surgical History H/O hernia repair History of colonoscopy History of partial surgical removal of colon 2008 Previous back surgery Family History Mother Cancer Coronary artery disease Social History Smoking Status: Never smoker alcohol intake: never substance use type: denies use current occupational status: retired Travel in the last 8 weeks: None household members: spouse housing: house PM Subjective & Objective Subjective Subjective:: Patient is a pleasant 79-year-old male who presents today for follow-up of bilateral SI injections on 06/24/2024. He does rate his pain today a 5 out of 10. He does state that he did have at least 75 to 80% improvement following this injection. Patient does state that this has worked over the last couple of weeks. 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 He states that it does go into and around his hips and that it is interfering with his ability perform activities of daily living such as cooking and cleaning. Patient is open to additional options for injections. He denies any radiating symptoms into his legs. He has continued conservative treatment. He is managed with compounded cream and baclofen 5 mg 3 times daily. He denies any side effects. His Arnaud has been reviewed and is appropriate. Review of Systems: General: No recent weight changes, no fever, no sleep disturbances Respiratory: No cough, no shortness of air, no recurring pulmonary infections Cardiovascular/peripheral vascular: No chest pain, no palpitations, no edema, no shortness of breath Gastrointestinal: No new onset incontinence, normal bowel movements reported Genitourinary: No new onset incontinence Musculoskeletal: Low back pain, bilateral hip pain Psychiatric: [Normal mood/affect] Neurological: [Denies weakness in extremities], [denies balance issues] Pain at rest (0-10 scale): 5 Objective Objective:: Physical Exam: General: Alert and oriented x3, no acute distress, pleasant and cooperative Lungs: Respirations even and unlabored, symmetrical chest expansion Eyes: PERRL Musculoskeletal: Flexion and extension of lumbar [spine] somewhat guarded secondary to pain, [antalgic gait noted] positive Kemps test Neurological: Speech clear, no gross sensory deficit Has patient had previous pain injection?: Yes Percent improvement in pain since last injection: 75 to 80% Conservative treatment options previously tried: Home exercise plan Length of treatment: Longer than 12 weeks Meds Home Medications and Allergies Home Medications ?Medication ?Instructions ?Recorded ?Confirmed ?Type aspirin 81 mg tablet,delayed 81 mg PO DAILY 09/27/22 07/10/24 History release atorvastatin 40 mg tablet 40 mg PO HS 09/27/22 07/10/24 History empagliflozin 10 mg tablet 10 mg PO DAILY Diabetes 09/27/22 07/10/24 History (Jardiance) furosemide 20 mg tablet 20 mg PO DAILY edema 09/27/22 07/10/24 History potassium chloride 10 mEq 10 meq PO DAILY 09/27/22 07/10/24 History tablet,extended release codeine 10 mg-guaifenesin 100 mg/5 5 ml PO Q6H PRN cough #120 mL 05/21/23 07/10/24 Rx mL oral liquid levothyroxine 100 mcg tablet 100 mcg PO DAILY hypothyroidism 90 06/02/24 07/10/24 Rx days #90 tabs methocarbamol 750 mg tablet 1,500 mg (2 x 750 mg) PO TID 5 06/03/24 07/10/24 Rx days #30 tabs baclofen 5 mg tablet 5 mg PO TID #42 tabs 06/11/24 07/10/24 Rx New Prescriptions to Start Prescriptions: Allergies Allergy/AdvReac Type Severity Reaction Status Date / Time Penicillins (PENICILLINS) Allergy Unknown Verified 05/21/23 08:28 cephalexin (From Keflex) Allergy Rash Verified 05/21/23 08:28 Assessment and Plan *Assessment and plan (1) Lumbar facet arthropathy: Status: Acute Category: Medical Code(s): M47.816 - Spondylosis without myelopathy or radiculopathy, lumbar region (2) Degenerative disc disease: Status: Acute Category: Medical Plan Patient is experiencing significant pain in his low back that is worse with bending, twisting or lifting. Patient did have limited range of motion of his lumbar spine with a positive Kemps test during today's visit. I did discuss with the patient that I do believe he would benefit from a lumbar medial branch block. Risk and benefits were discussed with the patient and he would like to proceed forward with this plan of care. Patient has tried and failed conservative therapy including oral medications, heat and ice, topicals, at home stretching exercise for longer than 12 weeks. Patient has been experiencing chronic low back pain for years and has had back surgery. Patient was counseled that if he does get significant relief with his first lumbar medial branch block that we will plan on repeating it with the plan to progress forward to a lumbar RFA at a later date. Patient agrees with this plan of care. Patient will be scheduled for his first diagnostic lumbar medial branch block bilaterally L4-L5 and L5-S1 under fluoroscopy. Patient has been instructed to contact the clinic with any concerns before the next appointment. Dr. Mejia has reviewed this note and agrees with this plan of care. This note was dictated using voice recognition software and make contain errors or omissions. All injections are used with Lidocaine, Bupivacaine and Depo Medrol. Occasionally urine drug screen is needed to verify patient's compliance with our office pain contract. This is ordered based off specific treatments related to chronic pain with the potential to abuse certain medications.
== END 2024-07-10 23:59 | disposition home or self-care (01) ==
LOC: SC.PAIN 10:30
PROVIDERS: PCP Family Medicine; Visit Provider Nurse Practitioner Family
DX: M47.816 Spondylosis without myelopathy or radiculopathy, lumbar region (principal); Z73.89 Other problems related to life management difficulty
CPT/HCPCS: 99212; G0463

== ENCOUNTER 2024-07-29 08:01 | Day surgery (SDC) | payer MEDICARE, SELFPAY ==
[2024-07-29 08:10] VITALS: BP 120/64; PULSE 65; RESP 16; TEMP 37.1; O2SAT 99; BMI 27.5
[2024-07-29 08:40] VITALS: BP 139/72; PULSE 68; RESP 18; O2SAT 97
[2024-07-29] MEDS: BUPIVACAINE 0.25% 10ML INJ 25 MG IJ (08:40)
[2024-07-29] MEDS: LIDOCAINE 1% 5ML PF VIAL 5 ML (08:40)
[2024-07-29] MEDS: methylPREDNISolone ACETATE 80MG/ML VIAL 80 MG (08:40)
[2024-07-29 08:41] VITALS: BP 139/72; PULSE 70; RESP 18; O2SAT 97
[2024-07-29 08:46] VITALS: BP 137/76; PULSE 60; RESP 16; O2SAT 97
--- NOTE | 2024-07-29 08:46 | P.PCN_ITS ---
Procedure Date: 07/29/24 Time: 08:30 Anesthesiologist:: Kehinde Ballesteros CRNA Complications:: None Pre-procedure Diagnosis:: Degenerative disc lumbar spine. Lumbar radiculopathy. Lumbar spondylosis. Multilevel lumbar facet arthropathy Post-procedure Diagnosis:: Same Indications for Procedure:: Patient is a very pleasant 79-year-old male who comes our clinic today for ROUND ONE of lumbar medial branch blocks/facet injections at the bilateral L4-5, L5-S1 level. Patient describes low lumbar back pain as well as bilateral hip radicular symptoms. He has difficulty with lumbar flexion, extension, left and right rotation. He rates his pain 7/10. Procedure Details:: Informed consent was obtained and the risk and benefits of the procedure was explained to the patient. Patient was taken to the procedure room where noninvasive monitors were placed, including noninvasive blood pressure cuff as well as pulse oximeter. The area over the lumbar spine was cleansed using chlorhexidine as a cleansing solution. I anesthetized the skin and subcutaneous tissues with 1% Lidocaine. I placed 22-gauge spinal needles into the facet joint/ medial branches of L4-L5, and L5-S1] bilaterally. Needle placement was confirmed with fluoroscopy. After confirmation of needle placement, each site was injected with 1 mL of 1% lidocaine and 0.25 % Marcaine and 10 mg of Depo- Medrol. A total of 80 mg of depo medrol was used for bilateral medial branch blocks of L4-L5, and L5-S1] bilaterally. Patient tolerated the procedure without difficulty. There were no complications. Plan and Disposition:: Patient was discharged without incident.
== END 2024-07-29 08:46 | disposition home or self-care (01) ==
PROVIDERS: PCP Family Medicine; Visit Provider Nurse Anesthetist, Certified Registered
DX: M47.816 Spondylosis without myelopathy or radiculopathy, lumbar region (principal); M51.369 Other intervertebral disc degeneration, lumbar region without mention of lumbar back pain or lower extremity pain
CPT/HCPCS: 64493; 64494; J1010

== ENCOUNTER 2024-08-11 08:38 | Outpatient (POV) | payer MEDICARE, SELFPAY ==
[2024-08-11 08:48] VITALS: BP 141/64; PULSE 65; RESP 16; O2SAT 98; BMI 28.3
--- NOTE | 2024-08-11 08:57 | A.OFFVIS_ITS ---
[facility] Disclaimer: The information contained in this section may have been updated after the patient was seen, as this information can be updated by other users. Medical History Colon cancer Congestive heart failure Diabetes mellitus Hypertension Sepsis Skin cancer Surgical History H/O hernia repair History of colonoscopy History of partial surgical removal of colon 2008 Previous back surgery Family History Mother Cancer Coronary artery disease Social History Smoking Status: Never smoker alcohol intake: never substance use type: denies use current occupational status: other Travel in the last 8 weeks: None household members: spouse housing: house PM Subjective & Objective Subjective Subjective:: Patient is a pleasant 79-year-old male who presents today for follow-up of his first lumbar medial branch block bilaterally L4-L5 and L5-S1 on 07/29/2024. Today he does state that he had approximately 75 to 80% relief that lasted at least 1 full week. He states he was able to move around easier with overall less pain and felt more functional. Patient rates his pain today a 4 out of 10 however states with any type of activity or bending, twisting or lifting it goes to more than a 6 or above. He denies any new injuries or falls. He states that it is just the same pain that has returned after that injection wore off. Patient does state it interferes with his ability to perform activities of daily living such as cooking and cleaning. Patient still denies any radiating symptoms to his legs. He has continued conservative therapy including at home stretching exercise for longer than 12 weeks. Patient is prescribed compounded cream and baclofen 5 mg 3 times a day from our office. His Arnaud has been reviewed and is appropriate. Review of Systems: General: No recent weight changes, no fever, no sleep disturbances Respiratory: No cough, no shortness of air, no recurring pulmonary infections Cardiovascular/peripheral vascular: No chest pain, no palpitations, no edema, no shortness of breath Gastrointestinal: No new onset incontinence, normal bowel movements reported Genitourinary: No new onset incontinence Musculoskeletal: Low back pain Psychiatric: [Normal mood/affect] Neurological: [Denies weakness in extremities], [denies balance issues] Pain at rest (0-10 scale): 5 Objective Objective:: Physical Exam: General: Alert and oriented x3, no acute distress, pleasant and cooperative Lungs: Respirations even and unlabored, symmetrical chest expansion Eyes: PERRL Musculoskeletal: Flexion and extension of lumbar [spine] somewhat guarded secondary to pain, [antalgic gait noted] positive Kemps test Neurological: Speech clear, no gross sensory deficit Has patient had previous pain injection?: Yes Percent improvement in pain since last injection: 75 to 80% lasting 1 week Conservative treatment options previously tried: Home exercise plan Length of treatment: Longer than 12 weeks Meds Home Medications and Allergies Home Medications ?Medication ?Instructions ?Recorded ?Confirmed ?Type aspirin 81 mg tablet,delayed 81 mg PO DAILY 09/27/22 08/11/24 History release atorvastatin 40 mg tablet 40 mg PO HS 09/27/22 08/11/24 History empagliflozin 10 mg tablet 10 mg PO DAILY Diabetes 09/27/22 08/11/24 History (Jardiance) furosemide 20 mg tablet 20 mg PO DAILY edema 09/27/22 08/11/24 History potassium chloride 10 mEq 10 meq PO DAILY 09/27/22 08/11/24 History tablet,extended release codeine 10 mg-guaifenesin 100 mg/5 5 ml PO Q6H PRN cough #120 mL 05/21/23 08/11/24 Rx mL oral liquid levothyroxine 100 mcg tablet 100 mcg PO DAILY hypothyroidism 90 06/02/24 08/11/24 Rx days #90 tabs methocarbamol 750 mg tablet 1,500 mg (2 x 750 mg) PO TID 5 06/03/24 08/11/24 Rx days #30 tabs baclofen 5 mg tablet 5 mg PO TID #42 tabs 06/11/24 08/11/24 Rx New Prescriptions to Start Prescriptions: Allergies Allergy/AdvReac Type Severity Reaction Status Date / Time Penicillins (PENICILLINS) Allergy Unknown Verified 05/21/23 08:28 cephalexin (From Keflex) Allergy Rash Verified 05/21/23 08:28 Assessment and Plan *Assessment and plan (1) Lumbar facet arthropathy: Status: Acute Category: Medical Code(s): M47.816 - Spondylosis without myelopathy or radiculopathy, lumbar region (2) History of lumbar fusion: Status: Acute Category: Surgical Code(s): Z98.1 - Arthrodesis status Plan Patient did have a successful first lumbar medial branch block and I did review with him regarding repeat diagnostic block. Risk and benefits were discussed with patient and he would like to proceed forward with this plan of care. Patient did have limited range of motion of his lumbar spine during today's visit with a positive Kemps test. Patient was counseled if he does get significant improvement with this second diagnostic block we will proceed forward with the lumbar RFA at a later date. Patient acknowledges understanding agrees with plan of care. Patient has continued at home stretching and exercise for longer than 12 weeks with no additional changes. Patient has been previously evaluated by neurosurgery and was not a surgical candidate at this time. Patient does have a history of previous lumbar fusion. Patient has failed oral medications, heat and ice, topicals. We will schedule him for the second lumbar medial branch block bilaterally L4-L5 and L5-S1 under fluoroscopy. Patient has been instructed to contact the clinic with any concerns before the next appointment. Dr. Mejia has reviewed this note and agrees with this plan of care. This note was dictated using voice recognition software and make contain errors or omissions. All injections are used with Lidocaine, Bupivacaine and dexamethasone. Occasionally urine drug screen is needed to verify patient's compliance with our office pain contract. This is ordered based off specific treatments related to chronic pain with the potential to abuse certain medications.
== END 2024-08-11 23:59 | disposition home or self-care (01) ==
LOC: SC.PAIN 08:39
PROVIDERS: PCP Family Medicine; Visit Provider Nurse Practitioner Family
DX: M47.816 Spondylosis without myelopathy or radiculopathy, lumbar region (principal); Z98.1 Arthrodesis status; Z73.89 Other problems related to life management difficulty
CPT/HCPCS: 99212; G0463

== ENCOUNTER 2024-09-02 08:03 | Day surgery (SDC) | payer MEDICARE, SELFPAY ==
[2024-09-02 08:20] VITALS: BP 119/62; PULSE 67; RESP 16; TEMP 36.8; O2SAT 96; BMI 28.3
[2024-09-02] MEDS: BUPIVACAINE 0.25% 10ML INJ 25 MG IJ (08:38)
[2024-09-02] MEDS: LIDOCAINE 1% 5ML PF VIAL 5 ML (08:38)
[2024-09-02 08:39] VITALS: BP 119/62; PULSE 67; RESP 18; O2SAT 96
[2024-09-02] MEDS: DEXAMETHASONE 10MG/ML 1ML VIAL 10 MG (08:39)
[2024-09-02 08:41] VITALS: BP 119/62; PULSE 67; RESP 18; O2SAT 96
--- NOTE | 2024-09-02 08:44 | EXP.PAIN.PRO ---
Procedure Date: 09/02/24 Time: 08:30 Anesthesiologist:: Kehinde Ballesteros CRNA Complications:: None Pre-procedure Diagnosis:: Degenerative disc lumbar spine multilevels. Lumbar radiculopathy. Lumbar spondylosis. Multilevel lumbar facet arthropathy. Lumbar postlaminectomy syndrome. Post-procedure Diagnosis:: Same. Indications for Procedure:: Patient is a very pleasant 79-year-old male who comes our clinic today for ROUND TWO of lumbar medial branch blocks/facet injections at the bilateral L4-5, L5-S1 level. Patient describes low lumbar back pain as well as bilateral hip radicular symptoms. He has difficulty with lumbar flexion, extension, left and right rotation. He rates his pain 7/10. Procedure Details:: Informed consent was obtained and the risk and benefits of the procedure was explained to the patient. Patient was taken to the procedure room where noninvasive monitors were placed, including noninvasive blood pressure cuff as well as pulse oximeter. The area over the lumbar spine was cleansed using chlorhexidine as a cleansing solution. I anesthetized the skin and subcutaneous tissues with 1% Lidocaine. I placed 22-gauge spinal needles into the facet joint/ medial branches of [L3-L4, L4-L5, and L5-S1] bilaterally. Needle placement was confirmed with fluoroscopy. After confirmation of needle placement, each site was injected with 1 mL of 1% lidocaine and 0.25 % Marcaine and 10 mg of Depo-Medrol. A total of 80 mg of depo medrol was used for bilateral medial branch blocks of [L3-L4, L4-L5, and L5-S1] bilaterally. Patient tolerated the procedure without difficulty. There were no complications. Plan and Disposition:: Patient was discharged without incident.
[2024-09-02 08:46] VITALS: BP 128/69; PULSE 62; RESP 16; O2SAT 98
== END 2024-09-02 08:46 | disposition home or self-care (01) ==
PROVIDERS: PCP Family Medicine; Visit Provider Nurse Anesthetist, Certified Registered
DX: M47.816 Spondylosis without myelopathy or radiculopathy, lumbar region (principal); M51.369 Other intervertebral disc degeneration, lumbar region without mention of lumbar back pain or lower extremity pain; M96.1 Postlaminectomy syndrome, not elsewhere classified
CPT/HCPCS: 64493; 64494; J1100

== ENCOUNTER 2024-09-22 10:36 | Outpatient (POV) | payer MEDICARE, SELFPAY ==
--- OUTSIDE RECORDS SUMMARY | 2024-09-22 06:44 | XMS_ITS | Continuity of Care Document ---
[facility] Organization [facility] Phone Care Team Providers Care Tumbler Tender Name Role Phone MARIA E SALAZAR Admitting [phone] SABI RASHEED Unavailable LEVI PATTON Primary Care MARIA E SALAZAR Primary Attending SABI RASHEED Unavailable ALLERGIES AND ADVERSE REACTIONS ALLERGIES AND ADVERSE REACTIONS Code System Allergy Substance Adverse Reaction Date Reaction (Severity) Comment Status Reported By [place] [id number] SNOMED CT PENICILLINS Adverse reaction to substance Not Specified active [id number] on September 17, 2024 6:51:56 PM UTC 7052 RXNorm Morphine Adverse reaction to substance Not Specified active [id number] on September 17, 2024 6:51:56 PM [place] [id number] SNOMED CT Sulfa Antibiotics Adverse reaction to substance Not Specified active [id number] on September 17, 2024 6:51:56 PM UTC 167 RXNorm acetaZOLAMIDE Adverse reaction to substance Not Specified active [id number] on September 17, 2024 6:51:56 PM UTC 2231 RXNorm Keflex Adverse reaction to substance Not Specified active [id number] on September 17, 2024 6:51:56 PM UTC ASSESSMENTS Chest pain ; PROBLEMS PATIENT PROBLEMS Code Description/Comments Category Status Upda eric By [id number] Chest pain active [id number] on Sep 6:48:30 PM UTC RESULTS Patient: CHARLES Daugherty Date of : [birth year] 94 LABORATORY RESULTS ORDER 100: COMP METABOLIC PA HERIBERTO (LOINC: 68451-6) ORDER DATE: September 17, 2024 4:18:00 PM UTC Specimen Source: Serum/Plasm a Specimen Type: Acellular blo od (serum or plasma) specimen PERFORMING LAB: [address] [id number] Result Comment: Final Result Date: September 17, 2024 4:43:00 PM UT (TECH: MRB) LOINC TEST FLAG RESULT REFERENCE RANGE UPDA ERIC BY 2951-2 Sodium [Moles/volume ] in Serum or Plasma N 136 mmol/L 136 mmol/L - 145 mmol/L September 17, 2024 4:43:00 PM [place] (TECH: MRB) 2823-3 Potassium [Moles/volume] in Serum or Plasma N 4.2 mmol/L 3.5 mmol/L - 5.1 mmol/L September 17, 2024 4:43:00 PM UT (TECH: MRB) 2075-0 Chloride [Moles/volu me] in Serum or Plasma N 103 mmol/L 98 mmol/L - 107 mmol/L September 17, 2024 4:43:00 PM UT (TECH: MRB) 2027-9 Carbon dioxide, tota l [Moles/volume] in Serum or Plasma N 28 mmol/L 21 mmol/L - 32 mmol/L September 17, 2024 4:43:00 PM UT (TECH: MRB) 94786-2 Anion gap 3 in Serum or Plasma N 5.0 September 17, 2024 4:43:00 PM UT (TECH: MRB) 2345-7 Glucose [Mass/volume ] in Serum or Plasma H 293 mg/dL 70 mg/dL - 110 mg/dL September 17, 2024 4:43:00 PM UT (TECH: MRB) 3094-0 Urea nitrogen [Mass/volume] in Serum or Plasma N 13 mg/dL 7 mg/dL - 18 mg/dL September 17, 2024 4:43:00 PM UT (TECH: MRB) 2160-0 Creatinine [Mass/volume] in Serum or Plasma N 1.3 mg/dL 0.8 mg/dL - 1.3 mg/dL September 17, 2024 4:43:00 PM UT (TECH: MRB) 3097-3 Urea nitrogen/Creatinine [Mass Ratio] in Serum or Plasma N 10.0 9 - September 17, 2024 4:43:00 PM UTC (TECH: MRB) 54770-0 Glomerular filtratio n rate/1.73 sq M.predicted by Creatinine-based formula (MDRD) L 56 mL/min >60 September 17, 2024 4:43:00 PM [facility] (TECH: MRB) 15381-7 Osmolality of Serum or Plasma by calculated by sum of electrolytes N 294 mosm/kg 275 mosm/kg - 301 mosm/kg September 17, 2024 4:43:00 PM [place] (TECH: MRB) 2885-2 Protein [Mass/volume ] in Serum or Plasma N 7.6 g/dL 6.4 g/dL - 8.2 g/dL September 17, 2024 4:43:00 PM [facility] (TECH: MRB) 1751-7 Albumin [Mass/volume ] in Serum or Plasma L 3.1 g/dL 3.4 g/dL - 5.0 g/dL September 17, 2024 4:43:00 PM [facility] (TECH: TrueAccordB) 34492-6 Calcium [Mass/volume ] in Serum or Plasma N 8.9 mg/dL 8.5 mg/dL - 10.1 mg/dL September 17, 2024 4:43:00 PM [facility] (TECH: MRB) 37110-4 Calcium [Mass/volume ] corrected for total protein in Serum or Plasma N 9.6 mg/dL 8.5 mg/dL - 10.1 mg/dL September 17, 2024 4:43:00 PM [facility] (TECH: MRB) 1975-2 Bilirubin.total [Mass/volume] in Serum or Plasma N 0.8 mg/dL 0.4 mg/dL - 1.5 mg/dL September 17, 2024 4:43:00 PM [facility] (TECH: MRB) 1920-8 Aspartate aminotransferase [Enzymatic activity/volume] in Serum or Plasma H 45 U/L 15 U/L - 37 U/L September 17, 2024 4:43:00 PM [facility] (TECH: MRB) 1742-6 Alanine aminotransferase [Enzymatic activity/volume] in Serum or Plasma N 41 U/L 12 U/L - 78 U/L September 17, 2024 4:43:00 PM UT (TECH: MRB) 5468-6 Alkaline phosphatase [Enzymatic activity/volume] in Serum or Plasma N 152 U/L September 17, 2024 4:43:00 PM UTC (TECH: MRB) ORDER 200: CBC AUTO W DIFF ( LOINC: 79947-5) ORDER DATE: September 17, 2024 4:18:00 PM UTC Specimen Source: Whole Blood Specimen Type: Whole blood s ample PERFORMING LAB: [address] [id number] Result Comment: Final Result Date: September 17, 2024 4:28:00 PM UTC (TECH: MRB) LOINC TEST FLAG RESULT REFERENCE RANGE UPDA ERIC BY 6690-2 Leukocytes [#/volume] in Blood by Automated count N 6.1 10^3/uL 4.5 10^3/uL - 11.5 10^3/uL September 17, 2024 4:28:00 PM UTC (TECH: MRB) 789-8 Erythrocytes [#/volume] in Blood by Automated count N 4.74 10^6/uL 4.25 10^6/uL - 5.57 10^6/uL September 17, 2024 4:28:00 PM UTC (TECH: MRB) 718-7 Hemoglobin [Mass/volume] in Blood N 14.3 g/dL 13.5 g/dL - 17.2 g/dL September 17, 2024 4:28:00 PM UTC (TECH: MRB) 75162-0 Hematocrit [Volume Fraction] of Blood L 41.3 % 42.0 % - 52.0 % September 17, 2024 4:28:00 PM UTC (TECH: MRB) 787-2 Erythrocyte mean corpuscular volume [Entitic volume] by Automated count N 87.1 fl 80 fl - 95 fl September 17, 2024 4:28:00 PM UTC (TECH: MRB) 37935-4 Erythrocyte mean corpuscular hemoglobin [Entitic mass] in Blood from Fetus by Automated count N 30.2 pg 27.0 pg - 34.0 pg September 17, 2024 4:28:00 PM UTC (TECH: MRB) 41490-5 Erythrocyte mean corpuscular hemoglobin concentration [Mass/volume] in Blood from Fetus by Automated count N 34.6 g/dL 32.0 g/dL - 36.0 g/dL September 17, 2024 4:28:00 PM UTC (TECH: MRB) 45793-5 Platelets [#/volume] in Blood L 79 10^3/uL 150 10^3/uL - 450 10^3/uL September 17, 2024 4:28:00 PM UTC (TECH: MRB) 09451-4 Erythrocyte distribution width [Ratio] N 15.1 % 12.3 % - 15.1 % September 17, 2024 4:28:00 PM UTC (TECH: MRB) 36603-4 Platelet mean volume [Entitic volume] in Blood by Automated count N 10.1 fl 7.4 fl - 10.4 fl September 17, 2024 4:28:00 PM UTC (TECH: MRB) 40780-3 Granulocytes/100 leukocytes in Blood by Automated count N 74.0 % 40 % - 75 % September 17, 2024 4:28:00 PM UTC (TECH: MRB) 736-9 Lymphocytes/100 leukocytes in Blood by Automated count N 15.0 % 15 % - 57 % September 17, 2024 4:28:00 PM UTC (TECH: MRB) 5905-5 Monocytes/100 leukocytes in Blood by Automated count N 7.7 % 4.0 % - 12.0 % September 17, 2024 4:28:00 PM UTC (TECH: MRB) 713-8 Eosinophils/100 leukocytes in Blood by Automated count N 2.1 % 0.0 % - 4.0 % September 17, 2024 4:28:00 PM UTC (TECH: MRB) 706-2 Basophils/100 leukocytes in Blood by Automated count N 1.0 % 0.0 % - 1.0 % September 17, 2024 4:28:00 PM UTC (TECH: MRB) 14532-0 Immature granulocytes [#/volume] in Blood N 0.2 % 0.0 % - 0.8 % September 17, 2024 4:28:00 PM UTC (TECH: MRB) 80437-3 Granulocytes [#/volume] in Blood by Automated count N 4.54 10^3/uL September 17, 2024 4:28:00 PM UTC (TECH: MRB) 731-0 Lymphocytes [#/volume] in Blood by Automated count N 0.92 10^3/uL September 17, 2024 4:28:00 PM UTC (TECH: MRB) 742-7 Monocytes [#/volume] in Blood by Automated count N 0.47 10^3/uL September 17, 2024 4:28:00 PM UTC (TECH: MRB) 711-2 Eosinophils [#/volume] in Blood by Automated count N 0.13 10^3/uL September 17, 2024 4:28:00 PM UTC (TECH: MRB) 704-7 Basophils [#/volume] in Blood by Automated count N 0.06 10^3/uL September 17, 2024 4:28:00 PM UTC (TECH: MRB) 09911-6 Immature granulocytes [#/volume] in Blood N 0.01 10^3/uL September 17, 2024 4:28:00 PM UTC (TECH: MRB) 88182-3 Manual differential performed [Presence] in Blood N NO September 17, 2024 4:28:00 PM UTC (TECH: MRB) ORDER 300: PT PROTHROMBIN TI ME W INR (LOINC: 01161-3) ORDER DATE: September 17, 2024 4:18:00 PM UTC Specimen Source: Plasma Specimen Type: Plasma specim en PERFORMING LAB: [address] [id number] Result Comment: Final Result Date: September 17, 2024 4:40:00 PM UTC (TECH: HC) LOINC TEST FLAG [place] [address]-2 INR in Platelet poor plasma or blood by Coagulation assay N 11.4 seconds 9.1 seconds - 12.0 seconds September 17, 2024 4:40:00 PM UTC (TECH: HC) 6301-6 INR in Platelet poor plasma by Coagulation assay N 1.05 0.9 - 1.1 September 17, 2024 4:40:00 PM UTC (TECH: HC) ORDER 400: PTT PARTIAL THROM B TIME (LOINC: 53984-5) ORDER DATE: September 17, 2024 4:18:00 PM UTC Specimen Source: Plasma Specimen Type: Plasma specim en PERFORMING LAB: [address] [id number] Result Comment: Final Result Date: September 17, 2024 4:40:00 PM UTC (TECH: HC) LOINC TEST FLAG [place] [address]-8 Activated partial thromboplastin time (aPTT) in Platelet poor plasma by Coagulation assay L 24.4 seconds 24.5 seconds - 32.8 seconds September 17, 2024 4:40:00 PM UTC (TECH: HC) ORDER 500: TROPONIN I 1 HOUR PROTOCOL (LOINC: 95440-5) ORDER DATE: September 17, 2024 4:18:00 PM UTC Specimen Source: Plasma Specimen Type: Plasma specim en PERFORMING LAB: [address] [id number] Result Comment: Final Result Date: September 17, 2024 5:43:00 PM UTC (TECH: LT) LOINC TEST FLAG [place] [address]-9 Troponin I.cardiac panel - Serum or Plasma by High sensitivity method N 10 ng/L 0 ng/L - 76 ng/L September 17, 2024 5:43:00 PM UTC (TECH: LT) ORDER 600: TROPONIN I 3 HOUR PROTOCOL (LOINC: 95828-6) ORDER DATE: September 17, 2024 4:18:00 PM UTC Specimen Source: Plasma Specimen Type: Plasma specim en PERFORMING LAB: [address] [id number] Result Comment: Final Result Date: September 17, 2024 7:18:00 PM UTC (TECH: HC) LOINC TEST FLAG [place] [address]-9 Troponin I.cardiac [Mass/volume] in Serum or Plasma N 7 ng/L 0 ng/L - 76 ng/L September 17, 2024 7:18:00 PM UTC (TECH: HC) ORDER 700: TROPONIN I 6 HOUR PROTOCOL (LOINC: 38238-6) ORDER DATE: September 17, 2024 4:18:00 PM UTC Specimen Source: Plasma Specimen Type: Plasma specim en PERFORMING LAB: [address] [id number] Result Comment: Final Result Date: September 17, 2024 10:31:00 PM UTC (TECH: HC) LOINC TEST FLAG [place] [address]-3 Troponin I.cardiac panel - Serum or Plasma by High sensitivity method N 7 ng/L 0 ng/L - 76 ng/L September 17, 2024 10:31:00 PM UTC (TECH: HC) ORDER 800: TROPONIN QUANT (L OINC: 57048-6) ORDER DATE: September 17, 2024 4:18:00 PM UTC Specimen Source: Serum/Plasm a Specimen Type: Acellular blo od (serum or plasma) specimen PERFORMING LAB: [address] [id number] Result Comment: Final Result Date: September 17, 2024 4:40:00 PM UTC (TECH: HC) LOINC TEST FLAG [place] [address]-6 Troponin I.cardiac panel - Serum or Plasma by High sensitivity method N 8 ng/L 0 ng/L - 76 ng/L September 17, 2024 4:40:00 PM UTC (TECH: HC) ORDER 900: B-TYPE NATRIURETI C PEPTIDE BNP (LOINC: 41646-9) ORDER DATE: September 17, 2024 4:18:00 PM UTC Specimen Source: Whole Blood Specimen Type: Whole blood s ample PERFORMING LAB: [address] [id number] Result Comment: Final Result Date: September 17, 2024 4:43:00 PM UTC (TECH: MRB) LOINC TEST FLAG [place] [address]-7 Natriuretic peptide B [Mass/volume] in Serum or Plasma N 44.2 pg/mL 0.0 pg/mL - 100 pg/mL September 17, 2024 4:43:00 PM UTC (TECH: MRB) ORDER 2300: LIPID PANEL (MARTHA NC: 59919-6) ORDER DATE: September 17, 2024 6:51:00 PM UTC Specimen Source: Serum/Plasm a Specimen Type: Acellular blo od (serum or plasma) specimen PERFORMING LAB: [address] [id number] Result Comment: Final Result Date: September 18, 2024 10:10:00 AM UTC (TECH: LT) LOINC TEST FLAG RESULT REFERENCE RANGE UPDA ERIC BY 2571-8 Triglyceride [Mass/volume] in Serum or Plasma N 62 mg/dL 20 mg/dL - 200 mg/dL September 18, 2024 10:10:00 AM UTC (TECH: LT) 2092-3 Cholesterol [Mass/volume] in Serum or Plasma N 97 mg/dL 0 mg/dL - 200 mg/dL September 18, 2024 10:10:00 AM UTC (TECH: LT) 2084-9 Cholesterol in HDL [Mass/volume] in Serum or Plasma L 49 mg/dL 60 mg/dL September 18, 2024 10:10:00 AM UTC (TECH: LT) 78197-5 Cholesterol in LDL [Mass/volume] in Serum or Plasma by calculation L 36 mg/dL 100 mg/dL September 18, 2024 10:10:00 AM UTC (TECH: LT) 2094-8 Cholesterol in HDL/Cholesterol.tota l [Mass Ratio] in Serum or Plasma N 2 - 5 September 18, 2024 10:10:00 AM UTC (TECH: LT) ORDER 3000: HEMOGLOBIN A1C ( LOINC: 4548-4) ORDER DATE: September 17, 2024 6:54:00 PM UTC Specimen Source: Whole Blood Specimen Type: Whole blood s ample PERFORMING LAB: [address] [id number] Result Comment: Final Result Date: September 17, 2024 7:12:00 PM UTC (TECH: MRB) LOINC TEST FLAG RESULT REFERENCE RANGE UPDA ERIC BY 4548-4 Hemoglobin A1c/Hemoglobin.tota l in Blood H 8.6 % 4.5 % - 6.2 % September 17, 2024 7:12:00 PM UTC (TECH: MRB) 02358-1 Glucose mean value [Mass/volume] in Blood Estimated from glycated hemoglobin H 200 mg/dl 82 mg/dl - 131 mg/dl September 17, 2024 7:12:00 PM UTC (TECH: MRB) ORDER 3100: GLUCOSE BLD METE R (LOINC: 03701-3) ORDER DATE: September 17, 2024 8:18:00 PM UTC Specimen Source: Whole Blood Specimen Type: Whole blood s ample PERFORMING LAB: [address] [id number] Result Comment: September 17, 2024 8:30:00 PM UTC Test performed by: [id number] ; Instrument: [id number] Final Result Date: September 17, 2024 8:18:00 PM UTC (TECH: HL7) LOINC TEST FLAG [place] [address]-1 Glucose [Mass/volume] in Capillary blood by Glucometer H 154 mg/dl 70 mg/dl - 115 mg/dl September 17, 2024 8:18:00 PM UTC (TECH: HL7) ORDER 3200: GLUCOSE BLD METE R (LOINC: 76517-4) ORDER DATE: September 17, 2024 11:02:00 PM UTC Specimen Source: Whole Blood Specimen Type: Whole blood s ample PERFORMING LAB: [address] [id number] Result Comment: September 17, 2024 11:09:00 PM UTC Test performed by: [id number] ; Instrument: [id number] Final Result Date: September 17, 2024 11:02:00 PM UTC (TECH: HL7) LOINC TEST FLAG [place] [address]-4 Glucose [Mass/volume] in Capillary blood by Glucometer H 258 mg/dl 70 mg/dl - 115 mg/dl September 17, 2024 11:02:00 PM UTC (TECH: HL7) ORDER 3400: GLUCOSE BLD METE R (LOINC: 46297-0) ORDER DATE: September 18, 2024 11:40:00 AM UTC Specimen Source: Whole Blood Specimen Type: Whole blood s ample PERFORMING LAB: [address] [id number] Result Comment: September 18, 2024 11:47:00 AM UTC Test performed by: [id number] ; Instrument: [id number] Final Result Date: September 18, 2024 11:40:00 AM UTC (TECH: HL7) LOINC TEST FLAG [place] [address]-4 Glucose [Mass/volume] in Capillary blood by Glucometer H 166 mg/dl 70 mg/dl - 115 mg/dl September 18, 2024 11:40:00 AM UTC (TECH: HL7) ORDER 3500: TROPONIN QUANT ( LOINC: 01666-0) ORDER DATE: September 18, 2024 12:21:00 PM UTC Specimen Source: Plasma Specimen Type: Plasma specim en PERFORMING LAB: [address] [id number] Result Comment: Final Result Date: September 18, 2024 12:37:00 PM UTC (TECH: LT) LOINC TEST FLAG [place] [address]-1 Troponin I.cardiac panel - Serum or Plasma by High sensitivity method N 10 ng/L 0 ng/L - 76 ng/L September 18, 2024 12:37:00 PM UTC (TECH: LT) ORDER 3600: D-DIMER QUANTITA TIVE (LOINC: 7799-0) ORDER DATE: September 18, 2024 12:39:00 PM UTC Specimen Source: Plasma Specimen Type: Plasma specim en PERFORMING LAB: [address] [id number] Result Comment: Final Result Date: September 18, 2024 1:47:00 PM UTC (TECH: LT) LOINC TEST FLAG RESULT REFERENCE RANGE UPDA ERIC BY 7799-0 Fibrin D-dimer [Units/volume] in Platelet poor plasma HH 1587 ng/mL 0 ng/mL - 500 ng/mL September 18, 2024 1:47:00 PM UTC (TECH: LT) ORDER 4300: GLUCOSE BLD METE R (LOINC: 91468-1) ORDER DATE: September 18, 2024 3:49:00 PM UTC Specimen Source: Whole Blood Specimen Type: Whole blood s ample PERFORMING LAB: [address] [id number] Result Comment: September 18, 2024 11:44:00 PM UTC Test performed by: [id number] ; Instrument: [id number] Final Result Date: September 18, 2024 3:49:00 PM UTC (TECH: HL7) LOINC TEST FLAG [place] [address]-2 Glucose [Mass/volume ] in Capillary blood by Glucometer H 135 mg/dl 70 mg/dl - 115 mg/dl September 18 3:49:00 PM UTC (TECH: HL7) LABORATORY NARRATIVE RESULTS Information is not available RADIOLOGY RESULTS ORDER 1000: CHEST SINGLE VIE W/PORTABLE (LOINC: 45054-0) ORDER DATE: September 17, 2024 4:18:00 PM UTC PERFORMING LAB: [address] [id number] Final Result Date: September 17 4:47:02 PM UTC [address] [place] [address] Name: BRITTON COLE Exam Date: 09/17/2024 : 1945 Age 79 years Gender: M Physician: Facility: [facility] Facility HSV: Outpatient Exam: CHEST SINGLE VIEW/PORTABLE EXAM DESCRIPTION: CHEST SINGLE VIEW/PORTABLE CLINICAL HISTORY: 79 years Male, COMPARISON: None. FINDINGS: Lungs are clear without focal consolidation, pleural effusions or pneumothorax. Cardiac size and central pulmonary vasculature within normal limits. Minor degenerative changes of the thoracic spine. IMPRESSION: No acute cardiopulmonary process. Electronically signed by: Petros Hummel MD 09/17/2024 01:00 PM EDT RP Dictated By: PETROS HUMMEL Transcribed By: Transcribed On: 09/17/2024 12:47 PM Electronically signed by: PETROS HUMMEL 09/17/2024 Thank you for referring BRITTON COLE to [facility]. Legally authenticated by SHAHEED MORRELL 2024-09-17 12:47:02 PATHOLOGY NARRATIVE RESULTS Information is not available MICROBIOLOGY RESULTS No Micro Labs/Results Exist for Patient BLOOD ADMIN RESULTS Information is not available TREATMENT PLAN DISCHARGE MEDICATIONS Status RXNORM Medication Dose Route Frequency Dates Comments U pdated By Continued [id number] Jardiance 10 mg tablet 1 TAB ORAL ONCE DAILY Prescr ibed: September 18, 2024 5:14:5 3 PM UT [id number] on September 18, 2024 5:14:53 PM UT Continued 548798 potassium chloride 10 mEq tablet, extended release 1 TAB ORAL ONCE DAILY Prescr ibed: September 18, 2024 5:14:5 3 PM UT [id number] on September 18, 2024 5:14:53 PM [facility] Continued 689506 nitroglycerin 0.4 mg Tablet, Sublingual 1 TAB SUBLINGUAL EVERY FIVE MINUTES NEEDED Prescr ibed: September 18, 2024 5:14:5 3 PM UT [id number] on September 18, 2024 5:14:53 PM UT Continued 806335 metoprolol succinate 50 mg Tablet, Extended Release 24 hr 1 TAB ORAL ONCE DAILY Prescr ibed: September 18, 2024 5:14:5 3 PM UT [id number] on September 18, 2024 5:14:53 PM UT Continued 346749 Lipitor 40 mg tablet 1 TAB ORAL AT BEDTIME Prescr ibed: September 18, 2024 5:14:5 3 PM UT [id number] on September 18, 2024 5:14:53 PM [facility] Continued Lasix 20 mg tablet 1 TAB ORAL ONCE DAILY Prescr ibed: September 18, 2024 5:14:5 3 PM UT [id number] on September 18, 2024 5:14:53 PM [facility] Continued 153437 Ranolazine ER Oral Tablet Extended Release 12 Hour 500 MG 1 TAB ORAL TWICE A DAY Prescr ibed: September 18, 2024 6:48:0 8 PM [facility] [id number] on September 18, 2024 6:48:08 PM [facility] PATIENT OPEN ORDERS Code System Description Frequency Occurrences Priority [place] [address]-3 [facility] EKG study ONE TIME 0 Stat September 17, 2024 4:18:00 PM [facility] LIBRA Gamble MD 3726 on September 17, 2024 4:18:00 PM [facility] 41378-3 [facility] US Heart ONE TIME 0 Routine September 17, 2024 6:48:00 PM [facility] [id number] on September 17, 2024 10:28:00 PM [facility] 32471-3 [facility] Heart SPECT gated and ejection fraction at rest ONE TIME 1 Routine September 18, 2024 12:00:0 0 PM [facility] NIKKO-HARESH SANDERSON [id number] on September 18, 2024 6:08:00 PM [facility] SCHEDULED PROCEDURES Code System Description Status Scheduled Date Upd ated By Patient scheduled procedure information is not available. HOSPITAL COURSE HOSPITAL COURSE Note Title Discharge Summary Date Of Service September 18, 2024 5:15:35 PM [facility] Created By [id number] on September 18 5:15:35 PM [facility] Signed By [id number] on September 18 5:20:00 PM [facility] The patient was diagnosed an d treated for...Stable angina, ACS ruled outHypertensionDyslipidemiaType 2 diabetes mellitus, non insulin dependent with hyperglycemiaAdvanced care planning - Full code. Surrogate MDM is faustino Chang score - 4. Serial troponins stable 8, 10, 7, 10. EKG has no evidence for ischemia. Consulted sand caster apprentice Dr. Rasheed. Lexiscan performed with results unremarkable. Follow up troponin 10 today. Discussed results and case with Dr. Rasheed - stable for discharge home with addition anti anginal ranexa, sand caster apprentice follow up in one week. Continue home mortality lower meds metoprolol succinate, high-dose atorvastatin 40 mg, aspirin 81 mg, Losartan. MEDICATIONS HOME MEDICATIONS Status [place] [facility] [place] Medication Dose Route Frequency Dates Comments Reported By Updated By Active [id number] 49204 95711 9 Jardiance 10 mg tablet 1.0 TAB ORAL DAILY Last Dose: [id number] on September 17, 2024 8:12:19 PM [facility] Active 338963 36606 34315 7 Lipitor 40 mg tablet 1.0 TAB ORAL BEDTIME Last Dose: [id number] on September 17, 2024 8:12:36 PM [facility] Active 139977 01479 55808 1 Lasix 20 mg tablet 1.0 TAB ORAL DAILY Last Dose: [id number] on September 17, 2024 8:13:43 PM [facility] Active 415065 47007 90825 1 metoprolol succinate 50 mg Tablet, Extended Release 24 hr 1.0 TAB ORAL DAILY Last Dose: [id number] on September 17, 2024 8:12:43 PM [facility] Active 959665 48378 04490 1 nitroglyceri n 0.4 mg Tablet, Sublingual 1.0 TAB SUBLIN GUAL [id number] Last Dose: [id number] on September 17, 2024 8:13:43 PM [facility] Active 525065 84158 66800 1 potassium chloride 10 mEq tablet, extended release 1.0 TAB ORAL DAILY Last Dose: [id number] on September 17, 2024 8:13:43 PM [facility] DISCHARGE MEDICATIONS [facility] Medication Dose Route Frequency Dates Comments Physician Updated By Continue d 7276710 8694 0090 009 Jardiance 10 mg tablet 1.0 TAB ORAL ONCE DAILY Prescr ibed: September 18, 2024 5:14:5 3 PM [facility] EL-ORT EZ MARIA E [id number] on September 18, 2024 5:14:53 PM [facility] Continue d 143397 1628 0737 801 potassium chloride 10 mEq tablet, extended release 1.0 TAB ORAL ONCE DAILY Prescr ibed: September 18, 2024 5:14:5 3 PM [facility] EZ MARIA E [id number] on September 18, 2024 5:14:53 PM [facility] Continue d 695589 8880 3026 601 nitroglycer in 0.4 mg Tablet, Sublingual 1.0 TAB SUBLIN GUAL EVERY FIVE MINUTES NEEDED Prescr ibed: September 18, 2024 5:14:5 3 PM [facility] EZ MARIA E [id number] on September 18, 2024 5:14:53 PM UT Continue d 114142 6743 7040 211 metoprolol succinate 50 mg Tablet, Extended Release 24 hr 1.0 TAB ORAL ONCE DAILY Prescr ibed: September 18, 2024 5:14:5 3 PM [facility] EZ MARIA E [id number] on September 18, 2024 5:14:53 PM UT Continue d 988408 7575 1015 777 Lipitor 40 mg tablet 1.0 TAB ORAL AT BEDTIME Prescr ibed: September 18, 2024 5:14:5 3 PM [facility] EZ MARIA E [id number] on September 18, 2024 5:14:53 PM UT Continue d 084338 9481 8006 701 Lasix 20 mg tablet 1.0 TAB ORAL ONCE DAILY Prescr ibed: September 18, 2024 5:14:5 3 PM [facility] EZ MARIA E [id number] on September 18, 2024 5:14:53 PM UT Continue d 630507 5841 1012 502 Ranolazine ER Oral Tablet Extended Release 12 Hour 500 MG 1.0 TAB ORAL TWICE A DAY Prescr ibed: September 18, 2024 6:48:0 8 PM [facility] EZ MARIA E [id number] on September 18, 2024 6:48:08 PM [facility] INPATIENT MEDICATIONS Status [place] [facility] [place] Medication Dose Route Frequency Rat e Quantity Dates Comments Physician Updated By Lopez inued [id number] nicotine TD (NICODERM) 21 MG/24HR PT24 21.0 MG TRANSD ERMAL ONCE DAILY NEEDED Start: September 17, 2024 6:48:0 0 PM [facility] End: September 18, 2024 6:48:0 8 PM [facility] MARIA E [id number] on September 19, 2024 4:25:00 AM [facility] Lopez inued [phone] 3061 400 hydrALAZINE (APRESOLINE ) 20 MG/ML SOLN 20.0 MG INTRAV ENOUS EVERY FOUR HOURS NEEDED Start: September 17, 2024 6:48:0 0 PM UTC End: September 18, 2024 6:48:0 8 PM UTC [facility] [id number] on September 19, 2024 4:25:00 AM UTC Discont inued 0012 1176 130 MAG-AL PLUS 200-200-20 MG/5 ML LIQD 30.0 ML ORAL EVERY SIX HOURS NEEDED Start: September 17, 2024 6:48:0 0 PM UTC End: September 18, 2024 6:48:0 8 PM UTC [facility] [id number] on September 19, 2024 4:25:00 AM UTC Discont inued 246199 7269 7084 611 ibuprofen (MOTRIN) 400 MG TABS 400.0 MG ORAL EVERY SIX HOURS NEEDED Start: September 17, 2024 6:48:0 0 PM UTC End: September 18, 2024 6:48:0 8 PM UTC [facility] [id number] on September 19, 2024 4:25:00 AM UTC Discont inued 824022 4809 4089 511 NORCO 5-325 MG TABS 1.0 TAB ORAL EVERY SIX HOURS NEEDED Start: September 17, 2024 6:48:0 0 PM UTC End: September 18, 2024 6:48:0 8 PM UTC [facility] [id number] on September 19, 2024 4:25:00 AM UTC Discont inued [id number] 5498 9189 003 morphine sulfate 2 MG/ML SOLN 2.0 MG INTRAV ENOUS EVERY TWO HOURS NEEDED Start: September 17, 2024 6:48:0 0 PM UTC End: September 18, 2024 6:48:0 8 PM UTC [facility] [id number] on September 19, 2024 4:25:00 AM UTC Discont inued 019290 2256 4677 361 ACETAMINOPH EN 325 MG TABS 650.0 MG ORAL EVERY SIX HOURS NEEDED Start: September 17, 2024 6:48:0 0 PM UTC End: September 18, 2024 6:48:0 8 PM UTC [facility] [id number] on September 19, 2024 4:25:00 AM UTC Discont inued 260255 2159 7077 601 pantoprazol e (PROTONIX) 40 MG TBEC 40.0 MG ORAL ONCE DAILY Start: September 18, 2024 1:00:0 0 PM UTC End: September 18, 2024 6:48:0 8 PM UTC [facility] [id number] on September 19, 2024 4:25:00 AM UTC Discont inued [id number] 7941 9475 503 ondansetron (ZOFRAN) 4 MG/2ML SOLN 4.0 MG INTRAV ENOUS EVERY EIGHT HOURS NEEDED Start: September 17, 2024 6:48:0 0 PM UTC End: September 18, 2024 6:48:0 8 PM UTC [facility] [id number] on September 19, 2024 4:25:00 AM UTC Discont inued 807000 8945 6003 064 ondansetron (ZOFRAN) 4 MG TBDP 4.0 MG SUBLIN GUAL EVERY EIGHT HOURS NEEDED Start: September 17, 2024 6:48:0 0 PM UTC End: September 18, 2024 6:48:0 8 PM UTC [facility] [id number] on September 19, 2024 4:25:00 AM UTC Discont inued 7983 0355 201 aspirin childrens chewable 81 MG CHEW 81.0 MG ORAL ONCE DAILY Start: September 17, 2024 6:53:0 0 PM UTC End: September 18, 2024 6:48:0 8 PM UTC [facility] [id number] on September 19, 2024 4:25:00 AM UTC Discont inued 1121 8869 185 REGADENOSON 0.4 MG/5ML SOLN 0.4 MG INTRAV ENOUS ONE TIME ADMINISTRA TION (UNSCHEDUL ED) Start: September 17, 2024 6:53:0 0 PM UTC End: September 18, 2024 3:20:5 8 PM UTC [facility] [id number] on September 18, 2024 3:20:00 PM UTC Discont inued Free Text Med Lipitor 40 mg tablet 1.0 TAB ORAL AT BEDTIME Start: September 18, 2024 1:00:0 0 AM UTC End: September 18, 2024 1:00:0 0 AM UTC [facility] AREDDEN on September 17, 2024 8:17:00 PM UTC Discont inued 284580 0616 7040 211 metoprolol succinate 50MG TB24 50 MG TB24 50.0 MG ORAL ONCE DAILY Start: September 18, 2024 1:00:0 0 PM UTC End: September 18, 2024 5:09:0 6 PM UTC [facility] [id number] on September 18, 2024 5:09:00 PM UTC Discont inued Free Text Med Jardiance 10 mg tablet 1.0 TAB ORAL ONCE DAILY Start: September 18, 2024 1:00:0 0 PM UTC End: September 18, 2024 1:00:0 0 PM UTC [facility] AREDDEN on September 17, 2024 8:25:00 PM UTC Discont inued [id number] 9000 4038 711 losartan potassium (COZAAR) 50 MG TABS 50.0 MG ORAL ONCE DAILY Start: September 17, 2024 8:14:0 0 PM UTC End: September 18, 2024 6:48:0 8 PM UTC [facility] [id number] on September 19, 2024 4:25:00 AM UTC Discont inued 547405 9196 4001 911 atorvastati n calcium (LIPITOR) 40 MG TABS 40.0 MG ORAL AT BEDTIME Start: September 18, 2024 1:00:0 0 AM UTC End: September 18, 2024 6:48:0 8 PM UTC [facility] [id number] on September 19, 2024 4:25:00 AM UTC Discont inued 6443272 9579 7015 237 JARDIANCE 10 MG TABS 10.0 MG ORAL ONCE DAILY Start: September 18, 2024 1:00:0 0 PM UTC End: September 18, 2024 1:00:0 0 PM UTC [facility] AREDDEN on September 17, 2024 8:27:00 PM UTC Discont inued [id number] 7775 7806 630 DAPAGLIFLOZ IN 5 MG TABS 5.0 MG ORAL ONCE DAILY Start: September 18, 2024 1:00:0 0 PM UTC End: September 18, 2024 6:48:0 8 PM UTC [facility] [id number] on September 19, 2024 4:25:00 AM UTC Discont inued 703867 8333 7040 211 metoprolol succinate 50MG TB24 50 MG TB24 50.0 MG ORAL ONCE DAILY Start: September 18, 2024 5:08:0 0 PM UTC End: September 18, 2024 7:04:0 0 PM UTC [facility] [id number] on September 19, 2024 4:25:00 AM UTC Discont inued [id number] [phone] *[facility] SEE COMMEN TS NEEDED Start: September 18, 2024 5:09:0 0 PM UTC End: September 18, 2024 6:48:0 8 PM UTC [facility] [id number] on September 19, 2024 4:25:00 AM UT SOCIAL HISTORY SOCIAL HISTORY SNOMED-CT Social History Element Description Effective Dates Offered Cessation Comment UpdatedBy [id number] Current Tobacco smoking status Never Smoked [id number] on September 17, 2024 6:11:49 PM UT SOCIAL HISTORY - Gender Sex: Male SOCIAL HISTORY - Status : status i nformation is not available Intention in Next Year: intention information is not available SOCIAL HISTORY - Sexual Behavior Sexual Orientation Gender Identity SNOMED-CT Description SNO MED -CT Description Activity Level No of Partners Partner Type UpdatedBy Information is not available VITAL SIGNS PATIENT VITAL SIGNS This section displays the mo st recent value for each vital sign as of September 22, 2024 10:44:50 AM [place] Code Vital Sign Activity Date Result Updated By 8302-2 Body height September 17, 2024 7:42:59 PM UTC 175.26 cm (69.0 in) [id number] on September 17, 2024 7:42:[place] [address]-1 Body mass index (BMI ) [Ratio] September 17, 2024 7:42:59 PM UTC 29.105 kg/m2 [id number] on September 17, 2024 7:42:59 PM UTC 3140-1 Body Surface Area Derived From Formula September 17, 2024 7:42:59 PM UTC 2.0528 m2 [id number] on September 17, 2024 7:42:59 PM UTC 8310-5 Body temperature September 18, 2024 6:51:00 AM UTC 97.4 [degF] [id number] on September 18, 2024 6:58:58 AM UTC 88521-8 Body weight Measured September 17 7:42:59 PM UTC 89.4 kg (197.0 lb) [id number] on September 17, 2024 7:42:59 PM UTC 8462-4 Diastolic blood pressure September 18, 2024 3:44:00 PM UTC 67.0 mm[Hg] [id number] on September 18, 2024 6:08:44 PM UTC 8867-4 Heart rate September 18, 2024 3:44:00 PM UTC 78 /min [id number] on September 18, 2024 6:08:44 PM UTC 71915-6 Oxygen saturation in Arterial blood by Pulse oximetry September 18, 2024 3:44:00 PM UTC 98.0 % [id number] on September 18, 2024 6:08:44 PM UTC 9279-1 Respiratory rate September 18, 2024 3:44:00 PM UTC 16 /min [id number] on September 18, 2024 6:08:44 PM UTC 02329-6 Spirometry panel September 18, 2024 12:44:00 PM UTC 10.0 {score} [id number] on September 18, 2024 12:45:10 PM UTC 8480-6 Systolic blood pressure September 18, 2024 3:44:00 PM UTC 150.0 mm[Hg] [id number] on September 18, 2024 6:08:44 PM UTC PEDIATRIC GROWTH CHART - VITAL SIGNS This section displays Head C ircumference Percentile, Weight for Length Percentile and BMI Percentile Loinc Code Pediatric Measure Age (Months) Result Updat ed By No Pediatric Growth Chart Pe rcentile Information Available. HEALTH CONCERNS Problems Concern Status Health Concern problem infor mation not available. Smoking Status Status Years Used Consumed packs p er day Health Concern smoking histo ry information not available. Family History Concern Status Health Concern family histor y information not available. 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 ARTERY WITH UNSTA Admission September 17, 2024 3:48:[address] [id number] Discharge September 18, 2024 7:04:00 PM UTC DISC HARGED TO HOME OR SELF CARE ENCOUNTER DIAGNOSES Note Title Discharge Summary Date Of Service September 18, 2024 5:15:35 PM UT Created By [id number] on September 18 5:15:35 PM UTC Signed By [id number] on September 18 5:20:00 PM UT Code System Diagnosis Onset Date [id number] SNOMED-CT Chest pain ABSTRACT DIAGNOSES Code System Diagnosis Updated By R07.9 ICD10 CHEST PAIN, UNSPECIFIED [id number] on September 22, 2024 10:44:23 AM [place] R06.02 ICD10 SHORTNESS OF BREATH [id number] on September 22, 2024 10:44:23 AM [facility] I25.110 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 [id number] on September 22, 2024 10:44:23 AM [facility] I10 ICD10 ESSENTIAL (PRIMARY) HYPERTEN SHELDON [id number] on September 22, 2024 10:44:23 AM [place] E11.65 ICD10 TYPE 2 DIABETES MELLITUS WITH HYPERGLYCEMIA [id number] on September 22, 2024 10:44:23 AM [place] E78.5 ICD10 HYPERLIPIDEMIA, UNSPECIFIED [id number] on September 22, 2024 10:44:23 AM [facility] E66.9 ICD10 OBESITY, UNSPECIFIED [id number] on September 22, 2024 10:44:23 AM [facility] Z68.29 ICD10 BODY MASS INDEX [BMI] 29.0-2 9.9, ADULT [id number] on September 22, 2024 10:44:23 AM [facility] Z79.899 ICD10 OTHER LONGTERM (CURRENT) DR CRISTÓBAL THERAPY [id number] on September 22, 2024 10:44:23 AM UT Z79.84 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 DRUGS [id number] on September 22, 2024 10:44:23 AM UT Z88.0 ICD10 ALLERGY STATUS TO PENICILLIN [id number] on September 22, 2024 10:44:23 AM [facility] Z88.2 ICD10 ALLERGY STATUS TO SULFONAMID ES [id number] on September 22, 2024 10:44:23 AM [facility] Z88.5 ICD10 ALLERGY STATUS TO NARCOTIC A GENT [id number] on September 22, 2024 10:44:23 AM [facility] Z88.1 ICD10 ALLERGY STATUS T O OTHER ANTIBIOTIC AGENTS [id number] on September 22, 2024 10:44:23 AM [facility] Z88.8 ICD10 ALLERGY STATUS T O OTHER DRUGS, MEDICAMENTS AND BIOLOGICAL SUBSTANCES [id number] on September 22, 2024 10:44:23 AM [facility] CARE TEAM Care Tumbler Tender Role MARIA E SALAZAR Admitting SABI RASHEED Referring LEVI PATTON Primary Care MARIA E SALAZAR Primary Attending SABI RASHEED Consulting HOSPITAL DISCHARGE INSTRUCTION DISCHARGE INSTRUCTION Encounter [id number] Admit Date September 17, 2024 3:48:00 PM [facility] Discharge Date September 18, 2024 7:04:00 PM [facility] PATIENT EDUCATION SUMMARY Patient/Visit Information: Patient Name: BRITTON COLE Diag: Attending Caregiver: MARIE SANDERSON Discharge Instruction Sheets Provided: * BRBN Stroke && BEFAST Education *[place] Patient Portal *BRBN Social Determinants of Health *BRBN Suicidal Feelings: How to Help Yourself (LPNT) () High Triglycerides Eating Plan Hypertension, Adult, Ahga-hp-Kiix Smoking\Tobacco Cessation - [facility] () () Chest Wall Pain, Azkh-ju-Pxri Diabetes Mellitus Basics Chest Wall Pain, Qmqq-co-Vyzb Diabetes Mellitus Basics High Triglycerides Eating Plan Hypertension, Adult, Epma-wq-Ddgg Patient Instructions: Additional Notes for * BRBN Stroke && BEFAST Education FOLLOW UP WITH DR. RASHEED ON 09/24 AT 10 AM. RETURN TO ER IF SYMPTOMS RETURN/WORSEN Followup Appointments/Instructions: HISTORY AND PHYSICAL NOTE HISTORY AND PHYSICAL NOTE Note Title Admission History an d Physical Date Of Service September 17, 2024 8:07:34 PM UT Created By [id number] on September 17 8:07:34 PM UTC Signed By [id number] on September 18 5:16:20 PM UT Chief Complaint chest pain History of Present Illness 71-year-old male with a history of type 2 diabetes mellitus non-insulin dependent, hypertension, CAD. Presents to the hospital for 1 day history of chest pain that was sternal nonradiating. Denies dyspnea or palpitations. Denies jaw pain. Follows sand caster apprentice Dr. Rasheed. Past Medical History Diabetes mellitus Hypertensive disorder Disorder of coronary artery Social History tobacco use Never Smoked, 0 yrs alcohol use No Known Use drug use No Known Use marital status sexual behavior Identifies as Male Allergies PENICILLINS - Not Specified Morphine - Not Specified Sulfa Antibiotics - Not Specified acetaZOLAMIDE - Not Specified Keflex - Not Specified Home Medications Jardiance 10 mg tablet Dose: BY MOUTH Lasix 20 mg tablet Dose: BY MOUTH Lipitor 40 mg tablet Dose: BY MOUTH metoprolol succinate 50 mg Tablet, Extended Release 24 hr Dose: MG BY MOUTH nitroglycerin 0.4 mg Tablet, Sublingual Dose: SUBLINGUAL potassium chloride 10 mEq tablet, extended release Dose: BY MOUTH Review of Systems Narrative No fever, no chills, no tremors, no myalgias, no arthralgias, no weakness No headache, no dizziness, no loss of conciousness No blurry vision, no double vision, no decreased acuity, no eye pain No rhinorrhea, no epistaxis, no congestion, no nasal discharge. No sore throat, no trouble swallowing, no trouble speaking No shortness of breath, no wheezing, no cough, no sputum production. +chest pain, no palpitations, no chest wall pain No abdominal pain, no diarrhea, no constipation, no blood in stool No trouble urinating, no dribbling, no weak stream, no hematuria No extremity swelling, no cyanosis No joint pain, no muscle pain, No difficulty ambulating Vital Signs 1511 O2Sat 98 1229 T 99 RR 14 BP 156 / 72 O2Sat 97 Physical Exam Narrative GENERAL: Alert, in no acute distress HEENT: NCAT, PERRL, EOMI RESPIRATORY: CTAB, no rales, rhonchi or wheezing. Good chest wall expansion CARDIOVASCULAR: RRR, S1S2 heard, no murmurs, rubs or gallops. Bilateral radial pulses palpated 2+ ABDOMEN: No masses. BS heard. Soft, non tender to palpation in all quadrants. No guarding or rebound tenderness EXTREMITIES: No edema. No cyanosis MSK: No gross abnormalities. SKIN: warm, dry. No ulcers, lacerations, rashes or eruptions. NEURO: AOX3. CN2-12 grossly intact. Grossly normal sensation PSYCH: Cooperative, pleasant. Lab Results 1457 Chemistry TROP4 7 1322 Chemistry TROPONIN 10 1303 Rad Diagnostic X-Ray [id number] 1200 Chemistry SODIUM 136 K 4.2 CHLORIDE 103 CO2 28 A GAP 5.0 GLUCOSE 293 (H) BUN 13 CREA 1.3 BUN/CREA 10.0 EGFR 56 (L) OSMO SKYLAR 294 PROTEIN 7.6 ALBUMIN 3.1 (L) CALCIUM 8.9 SKYLAR COR 9.6 BILI TOT 0.8 AST/SGOT 45 (H) ALT/SGPT 41 ALK PHOS 152 TROPONIN 8 HGB A1C 8.6 (H) EAG 200 (H) 1200 Hematology WBC 6.1 RBC 4.74 HGB 14.3 HCT 41.3 (L) MCV 87.1 MCH 30.2 MCHC 34.6 PLT S 79 (L) RDW 15.1 MPV 10.1 GRAN% 74.0 LYMPH% 15.0 MONO% 7.7 EOS% 2.1 BASO% 1.0 IG% 0.2 GRAN# 4.54 LYMPH# 0.92 MONO# 0.47 EOS# 0.13 BASO# 0.06 IG# 0.01 MANDIFF? No 1200 Coagualtion PT 11.4 INR 1.05 PTT 24.4 (L) 1200 Triage Meter BNP 44.2 Imaging Results CXR IMPRESSION: No acute cardiopulmonary process. Procedures and Surgeries None Assessment/Plan Chest pain, r/o ACS Hypertension Dyslipidemia Type 2 diabetes mellitus, non insulin dependent with hyperglycemia VTE prophylaxis - lovenox Advanced care planning - Full code. Surrogate MDM is faustino Fryeic Cole HEART score - 4. Serial troponins stable 8, 10, 7. EKG has no evidence for ischemia. Consult sand caster apprentice Dr. Rasheed and plan for stress test tomorrow. Monitor glucose. Start mortality lower meds metoprolol succinate, high-dose atorvastatin 40 mg, aspirin 81 mg, Losartan Time Spent With Patient Time Spent with Patient: [30] Minutes Medication Reconciliation Certification: I have utilized all available immediate resources to obtain, update, or review the patient's current medications. Advance Care Planning Certification: [y] I confirmed that the patient's Advance Care Plan is present, code status is documented or surrogate decision make is listed in the patient's medical record. Electronically signed by MARIE SANDERSON on 1316 CONSULTATION NOTE CONSULTATION NOTE Note Title OT-PT Speech Quick N ote Date Of Service September 17, 2024 8:26:55 PM UT Created By [id number] on September 17 8:26:55 PM UTC Signed By [id number] on September 17 8:31:29 PM UT [id number] QUICK NOTE PT consult received. Spoke with Randy SANCHEZ who stated pt has been walking in the room independently. Checked on pt, who is independent and safe with transfers and ambulation. Does not require use of assistive device. Independent with ADLs. At this time pt does not require therapy, will check on pt tomorrow to ensure mobility has not declined. Electronically signed by KYREE Ballard - PT PT on 1631 DISCHARGE SUMMARY NOTE CARE TEAM CARE nursing clerk Role on Team Status Start Date End Date Update d By CHALO GASPAR MD Consulting normal September 17, 2024 6:51:34 PM [facility] September 18, 2024 7:04:00 PM [facility] [id number] on September 17, 2024 6:51:34 PM [facility] MARIE SANDERSON Attending normal September 17 6:36:17 PM [facility] September 17, 2024 4:00:00 AM [facility] [id number] on September 17, 2024 6:51:34 PM [facility] MARIE SANDERSON Admitting normal September 17 6:36:17 PM [facility] September 17, 2024 4:00:00 AM [facility] [id number] on September 17, 2024 6:51:34 PM UTC CHALO GASPAR MD Referring normal September 17, 2024 5:23:58 PM UTC September 17, 2024 4:00:00 AM UTC [id number] on September 17, 2024 6:51:34 PM UTC LIBRA Gamble MD Referring normal September 17 5:14:59 PM UTC September 17, 2024 5:23:58 PM UTC [id number] on September 17, 2024 6:51:34 PM UTC LIBRA Gamble MD Attending normal September 17 5:14:59 PM UTC September 17, 2024 6:36:17 PM UTC [id number] on September 17, 2024 6:51:34 PM UTC LIBRA Gamble MD Admitting normal September 17 5:14:59 PM UTC September 17, 2024 6:36:17 PM UTC [id number] on September 17, 2024 6:51:34 PM UTC POOJA SIMS MD PCP normal September 17, 2024 3:49:10 PM UTC September 17, 2024 4:00:00 AM UTC [id number] on September 17, 2024 6:51:34 PM UTC
--- OUTSIDE RECORDS SUMMARY | 2024-09-22 10:39 | XMS_ITS | Encounter Summary ---
Author Organization 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 Name Role Phone Arnie Rey MD Primary Care Provider [phone] Encounter Details Date Type Department Care Team (Late st Contact Info) Description 05/06/2020 Transcribed Document [facility] [place] [facility] [place] [address] ProviderRojelio MD [address] [place] [address] Social History Tobacco Use Types Packs/Day Years Used Date Smoking Tobacco: Never Assessed Sex and Gender Information Value Date Recorded Sex Assigned at Not on file Legal Sex Male 1:39 PM CDT Gender Identity Not on file Sexual Orientation Not on file documented as of this encounter Miscellaneous Notes * Cerner Conversion Note - Rojelio ProviderMD - 05/06/2020 1:13 PM 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 [facility] [place] [address] BRITTON SOTO Dat :1945 Visit Time:05/06/2020 Your Visit Summary Your Care Team Admitting Physician - ASHLEY WEBB MD-CAR Attending Physician - ASHLEY WEBB MD-CAR Primary Care Physician - ARNIE REY MD-FERMIN Referring Physician - ASHLEY WEBB MD-CAR Your Diagnosis Abnormal result of other cardiovascular function study, Abnormal result of other cardiovascular function study Discharge Vitals Temperature 36.7 ??C Heart Rate (Monitored) 57 Blood Pressure 166/84 What to do next Instructions From Your Care Team Diet after Discharge: Resume usual diet as tolerated Activity after Discharge: Rest and relax today, No strenuous activity, No lifting more than 1 pound with affected hand for 48 hours. ,wear wrist brace for 48 hours, then at night to help remember to keep wrist straight. no over flexion or extension of wrist _ Driving Restrictions: No driving for 24 hours. Showering/Bathing: You may remove the dressing in 24 hours and shower. , No tub bathing, soaking or swimming for 3-5 days until site is healed. Medications: Start atorvastatin 40 mg one tablet every night at bedtime...... please begin tonight Start amlodipine 10 mg one tablet every day.....please begin tonight Increase metoprolol to 50 mg at bedtime.......please begin tonight Dressing Instructions: You can remove the dressing in 24 hours., _, _ Watch for signs and symptoms of infection: redness, swelling or fever. If bleeding occurs, hold pressure and have someone call 911. Follow-Up Appointments Follow Up with BRIDGETTE NOLASCO When 06/02/2020 10:40 AM EST Comments Appointment has been made Where: [address] [facility] [place] [address]- Business (1) Medications What How Much When Instructions Next Dose aspirin 81 Milligram(s) Oral Every Day 05/07 PM colestipol 1 Gram(s) Oral Two Times A Day 05/06 PM escitalopram (Lexapro) 10 Milligram(s) Oral Every Day 05/07 AM levothyroxine 100 Microgram(s) Oral Every Day 05/07 AM losartan (losartan 100 mg oral tablet) 1 Tablet(s) Oral Every Day 05/07 AM metoprolol (metoprolol succinate) 25 Milligram(s) Oral Every Day 05/07 AM metoprolol 50 milligrams Every day at bedtime 05/06 PM Oral atorvastatin 40 milligrams Every day at bedtime 05/06 PM Oral amlodipine 10 milligrams Every day at bedtime 05/06 PM Oral Take your medications faithfully. Do NOT skip medication. Do NOT stop taking medications without the direction of a physician. Carry a list of your medications with you at all times, and take this medication list with you to your first follow up visit. Report any side effects. Avoid herbal remedies unless discussed with your physician. As part of your treatment plan, your physician may have prescribed a limited course of a controlled substance. This medication may be given to help people with moderate or severe pain or for other medical conditions, but there are risks involved with treatment. Common side effects may include nausea, constipation, drowsiness, sweating, itching, dry mouth, and rash. More serious side effects may include cognitive and motor impairment, like problems with thinking, concentrating, alertness, and movement (e.g. slowed reflexes), and driving and operating heavy machinery can be dangerous. It is important for you to talk to your physician if you have these side effects or questions. These controlled substances can produce physical dependence and be habit-forming if taken for an extended period of time, which means that the body has gotten used to them and may experience withdrawal symptoms if they are abruptly stopped. Withdrawal symptoms can include runny nose, sweating, goose bumps, diarrhea, abdominal cramping, rapid heartbeat, difficulty sleeping, and nervousness. Please dispose of unused and medications per your retail pharmacy guidance. Allergies morphine (hallucination) penicillin (Blisters, Blisters) sulfa drugs (Blisters, Blisters) Immunizations This Visit No Immunizations Found Education Materials Radial Site Care This sheet gives you information about how to care for yourself after your procedure. Your health care provider may also give you more specific instructions. If you have problems or questions, contact your health care provider. What can I expect after the procedure? After the procedure, it is common to have: ??? Bruising and tenderness at the catheter insertion area. Follow these instructions at home: Medicines ??? Take doqg-qsi-feqjfkl and prescription medicines only as told by your health care provider. Insertion site care ??? Follow instructions from your health care provider about how to take care of your insertion site. Make sure you: ? Wash your hands with soap and water before you change your bandage (dressing). If soap and water are not available, use hand bucket turner. ? Change your dressing as told by your health care provider. ? Leave stitches (sutures), skin glue, or adhesive strips in place. These skin closures may need to stay in place for 2 weeks or longer. If adhesive strip edges start to loosen and curl up, you may trim the loose edges. Do not remove adhesive strips completely unless your health care provider tells you to do that. ??? Check your insertion site every day for signs of infection. Check for: ? Redness, swelling, or pain. ? Fluid or blood. ? Pus or a bad smell. ? Warmth. ??? Do not take baths, swim, or use a hot tub until your health care provider approves. ??? You may shower 24???48 hours after the procedure, or as directed by your health care provider. ? Remove the dressing and gently wash the site with plain soap and water. ? Pat the area dry with a clean towel. ? Do not rub the site. That could cause bleeding. ??? Do not apply powder or lotion to the site. Activity ??? For 24 hours after the procedure, or as directed by your health care provider: ? Do not flex or bend the affected arm. ? Do not push or pull heavy objects with the affected arm. ? Do not drive yourself home from the hospital or clinic. You may drive 24 hours after the procedure unless your health care provider tells you not to. ? Do not operate machinery or power tools. ??? Do not lift anything that is heavier than 10 lb (4.5 kg), or the limit that you are told, until your health care provider says that it is safe. ??? Ask your health care provider when it is okay to: ? Return to work or school. ? Resume usual physical activities or sports. ? Resume sexual activity. General instructions ??? If the catheter site starts to bleed, raise your arm and put firm pressure on the site. If the bleeding does not stop, get help right away. This is a medical emergency. ??? If you went home on the same day as your procedure, a responsible adult should be with you for the first 24 hours after you arrive home. ??? Keep all follow-up visits as told by your health care provider. This is important. Contact a health care provider if: ??? You have a fever. ??? You have redness, swelling, or yellow drainage around your insertion site. Get help right away if: ??? You have unusual pain at the radial site. ??? The catheter insertion area swells very fast. ??? The insertion area is bleeding, and the bleeding does not stop when you hold steady pressure on the area. ??? Your arm or hand becomes pale, cool, tingly, or numb. These symptoms may represent a serious problem that is an emergency. Do not wait to see if the symptoms will go away. Get medical help right away. Call your local emergency services (911 in the [place] Do not drive yourself to the hospital. Summary ??? After the procedure, it is common to have bruising and tenderness at the site. ??? Follow instructions from your health care provider about how to take care of your radial site wound. Check the wound every day for signs of infection. ??? Do not lift anything that is heavier than 10 lb (4.5 kg), or the limit that you are told, until your health care provider says that it is safe. This information is not intended to replace advice given to you by your health care provider. Make sure you discuss any questions you have with your health care provider. Document Released: 05/05/2011 Document Revised: 05/08/2018 Document Reviewed: 05/08/2018 [employer] Patient Education ?? 2020 [employer]. Moderate Conscious Sedation, Adult, Care After These instructions provide you with information about caring for yourself after your procedure. Your health care provider may also give you more specific instructions. Your treatment has been planned according to current medical practices, but problems sometimes occur. Call your health care provider if you have any problems or questions after your procedure. What can I expect after the procedure? After your procedure, it is common: ??? To feel sleepy for several hours. ??? To feel clumsy and have poor balance for several hours. ??? To have poor judgment for several hours. ??? To vomit if you eat too soon. Follow these instructions at home: For at least 24 hours after the procedure: ??? Do not: ? Participate in activities where you could fall or become injured. ? Drive. ? Use heavy machinery. ? Drink alcohol. ? Take sleeping pills or medicines that cause drowsiness. ? Make important decisions or sign legal documents. ? Take care of children on your own. ??? Rest. Eating and drinking ??? Follow the diet recommended by your health care provider. ??? If you vomit: ? Drink water, juice, or soup when you can drink without vomiting. ? Make sure you have little or no nausea before eating solid foods. General instructions ??? Have a responsible adult stay with you until you are awake and alert. ??? Take ehmp-sej-xsowjbb and prescription medicines only as told by your health care provider. ??? If you smoke, do not smoke without supervision. ??? Keep all follow-up visits as told by your health care provider. This is important. Contact a health care provider if: ??? You keep feeling nauseous or you keep vomiting. ??? You feel light-headed. ??? You develop a rash. ??? You have a fever. Get help right away if: ??? You have trouble breathing. This information is not intended to replace advice given to you by your health care provider. Make sure you discuss any questions you have with your health care provider. Document Released: 01/21/2014 Document Revised: 03/15/2018 Document Reviewed: 07/22/2016 [employer] Patient Education ?? 2020 [employer] Coronary Angiogram A coronary angiogram is an X-ray procedure that is used to examine the arteries in the heart. In this procedure, a dye (contrast dye) is injected through a long, thin tube (catheter). The catheter is inserted through the groin, wrist, or arm. The dye is injected into each artery, then X-rays are taken to show if there is a blockage in the arteries of the heart. This procedure can also show if you have valve disease or a disease of the aorta, and it can be used to check the overall function of your heart muscle. You may have a coronary angiogram if: ??? You are having chest pain, or other symptoms of angina, and you are at risk for heart disease. ??? You have an abnormal electrocardiogram (ECG) or stress test. ??? You have chest pain and heart failure. ??? You are having irregular heart rhythms. ??? You and your health care provider determine that the benefits of the test information outweigh the risks of the procedure. Let your health care provider know about: ??? Any allergies you have, including allergies to contrast dye. ??? All medicines you are taking, including vitamins, herbs, eye drops, creams, and gaxy-fsw-pinggsr medicines. ??? Any problems you or family members have had with anesthetic medicines. ??? Any blood disorders you have. ??? Any surgeries you have had. ??? History of kidney problems or kidney failure. ??? Any medical conditions you have. ??? Whether you are or may be . What are the risks? Generally, this is a safe procedure. However, problems may occur, including: ??? Infection. ??? Allergic reaction to medicines or dyes that are used. ??? Bleeding from the access site or other locations. ??? Kidney injury, especially in people with impaired kidney function. ??? Stroke (rare). ??? Heart attack (rare). ??? Damage to other structures or organs. What happens before the procedure? Staying hydrated Follow instructions from your health care provider about hydration, which may include: ??? Up to 2 hours before the procedure ??? you may continue to drink clear liquids, such as water, clear fruit juice, black coffee, and plain tea. Eating and drinking restrictions Follow instructions from your health care provider about eating and drinking, which may include: ??? 8 hours before the procedure ??? stop eating heavy meals or foods such as meat, fried foods, or fatty foods. ??? 6 hours before the procedure ??? stop eating light meals or foods, such as toast or cereal. ??? 2 hours before the procedure ??? stop drinking clear liquids. General instructions ??? Ask your health care provider about: ? Changing or stopping your regular medicines. This is especially important if you are taking diabetes medicines or blood thinners. ? Taking medicines such as ibuprofen. These medicines can thin your blood. Do not take these medicines before your procedure if your health care provider instructs you not to, though aspirin may be recommended prior to coronary angiograms. ??? Plan to have someone take you home from the hospital or clinic. ??? You may need to have blood tests or X-rays done. What happens during the procedure? An IV tube will be inserted into one of your veins. ??? You will be given one or more of the following: ? A medicine to help you relax (sedative). ? A medicine to numb the area where the catheter will be inserted into an artery (local anesthetic). ??? To reduce your risk of infection: ? Your health care team will wash or sanitize their hands. ? Your skin will be washed with soap. ? Hair may be removed from the area where the catheter will be inserted. ??? You will be connected to a continuous ECG monitor. ??? The catheter will be inserted into an artery. The location may be in your groin, in your wrist, or in the fold of your arm (near your elbow). ??? A type of X-ray (fluoroscopy) will be used to help guide the catheter to the opening of the blood vessel that is being examined. ??? A dye will be injected into the catheter, and X-rays will be taken. The dye will help to show where any narrowing or blockages are located in the heart arteries. ??? Tell your health care provider if you have any chest pain or trouble breathing during the procedure. ??? If blockages are found, your health care provider may perform another procedure, such as inserting a coronary stent. The procedure may vary among health care providers and hospitals. What happens after the procedure? After the procedure, you will need to keep the area still for a few hours, or for as long as told by your health care provider. If the procedure is done through the groin, you will be instructed to not bend and not cross your legs. ??? The insertion site will be checked frequently. ??? The pulse in your foot or wrist will be checked frequently. ??? You may have additional blood tests, X-rays, and a test that records the electrical activity of your heart (ECG). ??? Do not drive for 24 hours if you were given a sedative. Summary ??? A coronary angiogram is an X-ray procedure that is used to look into the arteries in the heart. ??? During the procedure, a dye (contrast dye) is injected through a long, thin tube (catheter). The catheter is inserted through the groin, wrist, or arm. ??? Tell your health care provider about any allergies you have, including allergies to contrast dye. ??? After the procedure, you will need to keep the area still for a few hours, or for as long as told by your health care provider. This information is not intended to replace advice given to you by your health care provider. Make sure you discuss any questions you have with your health care provider. Document Released: 10/07/2003 Document Revised: 03/15/2018 Document Reviewed: 01/12/2017 [employer] Patient Education ?? 2020 [employer] It???s Cold and Flu Season ??? How are you protecting yourself? The start of each year is often met with the peak of cold and flu season. This year is no different except that we are facing the new strain of coronavirus, COVID-19, and the widespread media attention this public health outbreak is causing. It is understandable that many are feeling overwhelmed by the thought of catching coronavirus and are concerned about how to best care for ourselves and our loved ones during this challenging time. Take comfort in knowing there are simple things you can do each and every day to help ensure your health is protected. Scrub a dub! Wash your hands! As simple as this sounds, it truly is the most effective way to stop the spread of germs. Be sure to use soap, and to make sure you are being thorough enough, sing the ???Happy Birthday?? song which is just the right length to ensure a thorough cleaning of your hands. Wash all parts of your hands, including the ???webs?? between your fingers and thumbs. When without, use a squeeze! If you are unable to get to a sink for soap and water to thoroughly wash your hands, use hand bucket turner. While handwashing is best, hand bucket turner helps to reduce the spread of germs when you are out and about. Have hand bucket turner in several locations so you can always have some on hand ??? think about placing some bottles in your car, your purse, your suitcase, the diaper bag, or even in your coat pocket. Don???t rub, don???t touch! As tempting as it is to rub those scratchy eyes during allergy season or to rub a runny nose, don???t. In fact, if you can, try to avoid touching your face as much as possible, especially with unclean hands. Our eyes, nose, and mouth are easy access points for germs to enter our bodies. When in doubt, don???t go out! If you are feeling under the weather, stay home. If your child is feeling sick, keep them home. It is so important to not only rest when you are starting to get sick or are already under the weather, but also staying home and away from others helps to keep people from also getting sick. Don???t [place] It! Sneezing this time of year is part of life, especially if you suffer from allergies or do have the cold or flu. To help minimize the spread of germs from sneezing or coughing, use a Kleenex or your elbow to protect against rogue spray and to help keep your hands clean. And remember, most people will have a runny nose, coughs and sneezes these days either from seasonal allergies, the cold or the flu, but if you do feel ill or feel like you need some help to feel better, please contact your Primary Care Provider to determine the best course of treatment for you which may include home care for mild cases or making an appointment to be seen to address more moderate needs. To find a PCP near you, please visit HYPERLINK [email or web address]. June 20, 2019 FAQ ??? Patient COVID-19 testing Why do I need a COVID-19 test in the hospital? We are testing patients as part of an overall effort to ensure the safety of our patients, staff and providers, and to limit the spread of the novel coronavirus throughout our community. What happens if I test positive for COVID-19? Any scheduled elective procedure will be postponed and treatment for the coronavirus will follow the protocol that is currently in place. If you are admitted to the hospital, we will use droplet precautions for patients who test positive for COVID-19. If I???m a patient, should I wear a mask? Yes. When you are in your room alone, you may remove your mask. When anyone enters your room, you should put your mask back on. Will I be allowed to have visitors if I am admitted to the hospital with COVID-19? As part of the standard care for COVID-19 patients, visitors will not be allowed to protect them from potential exposure to the novel coronavirus. If you have a health care support person with you during a pending test and the test comes back positive, your visitor will be asked to leave and follow up with their primary care provider. Public health may reach out to them to complete contact tracing. Will my status as COVID-19 positive be reported? Because COVID-19 is a public health threat, all positive cases are reported through the local health department and the [place] Department for Public Health. Those organizations are responsible for monitoring public health threats. What is contact tracing? The public health departments at the state and local levels use contact tracing to prevent the spread of infectious disease. They will work to identify people who have COVID-19 and their contacts who may have been exposed. What does contact tracing involve? Typically, a contact tracer will interview patients with COVID-19 to identify everyone with whom they have had close contact during the time they may have been infectious and then notify those contacts of potential exposure and refer them for testing. They may monitor the contacts for symptoms of COVID-19 and connect the contacts with services they may need during a recommended self-quarantine period. The patient???s name is not revealed to anyone during the contact tracing interviews, even if a contact asks. Who would be considered a ???close contact?? ? According to the CDC, a close contact is defined as someone who was within 6 feet of an infected person for at least 15 minutes, starting from 48 hours before the person began feeling sick until the time the patient was isolated. What can a close contact expect during this process? A contact tracer from the health department will contact that person to inform them they have been exposed to COVID-19. If that happens, the contact should self-quarantine for 14 days, starting from the last date of possible exposure, monitor their health, wear a face covering and maintain social distancing ??? at least 6 feet from others at all times. Should a close contact seek medical care? Close contacts should take their temperature twice a day, watch for COVID-19 symptoms and notify the health department if they develop symptoms. They should also notify people with whom they have had recent close contact if they become ill. They should seek medical care if symptoms worsen or become severe, including trouble breathing, persistent pain or pressure in the chest, confusion, inability to wait or stay awake, or bluish lips or face. Steps to Help Prevent the Spread of COVID-19 if You Are Sick In all cases, follow the guidance of your health care provider and local health department. Your local health department determines the length of time for quarantine and will notify you with detailed information. Monitor your symptoms. Common symptoms of COVID-19 include fever, fatigue, diarrhea/vomiting, loss of taste and smell, and cough. Trouble breathing is a more serious symptom that means you should get medical attention. If you develop emergency warning signs for COVID-19 get medical attention immediately. Emergency warning signs include*: ??? Trouble breathing ??? Persistent pain or pressure in the chest ??? New confusion or inability to arouse ??? Bluish lips or face *This list is not all inclusive. Please consult your medical provider for any other symptoms that are severe or concerning. Call 911 if you have a medical emergency. If you have a medical emergency and need to call 911, notify the contour band saw operator vertical that you have, or think you might have, COVID-19. If possible, put on a facemask before medical help arrives. Stay home except to get medical care. ??? Stay home: Most people with COVID-19 have mild illness and can recover at home without medical care. Do not leave your home, except to get medical care. Do not visit public areas. ??? Stay in touch with your doctor. Call before you get medical care. Be sure to get care if you have trouble breathing, or have any other emergency warning signs, or if you think it is an emergency. Separate yourself from other people in your home; this is known as home isolation. ??? Stay away from others: As much as possible, stay away from others. You should stay in a specific ???sick room?? if possible, and away from other people in your home. Use a separate bathroom, if available. Call ahead before visiting your doctor. ??? Call ahead: Many medical visits for routine care are being postponed or done by phone or telemedicine. If you have a medical appointment that cannot be postponed, call your doctor's office, and tell them you have or may have COVID-19. This will help the office protect themselves and other patients. If you are sick, wear a facemask in the following situations, if available. ??? If you are sick: You should wear a facemask, if available, when you are around other people (including before you enter a health care provider???s office). ??? If you are caring for others: If the person who is sick is not able to wear a facemask (for example, because it causes trouble breathing), then as their caregiver, you should wear a facemask when in the same room with them. Visitors, other than caregivers, are not recommended. Cover your coughs and sneezes. ??? Cover: Cover your mouth and nose with a tissue when you cough or sneeze. ??? Dispose: Throw used tissues into a lined trash can. ??? Wash hands: Immediately wash your hands with soap and water for at least 20 seconds. If soap and water are not available, clean your hands with an alcohol-based hand bucket turner that contains at least 60% alcohol. Clean your hands often. ??? Wash hands: Wash your hands often with soap and water for at least 20 seconds when visibly dirty. This is especially important after blowing your nose, coughing or sneezing, and going to the bathroom, and before eating or preparing food. ??? Hand bucket turner: Use an alcohol-based hand bucket turner with at least 60% alcohol, covering all surfaces of your hands and rubbing them together until they feel dry. ??? Avoid touching: Avoid touching your eyes, nose and mouth with unwashed hands. Avoid sharing personal household items. ??? Do not share: Do not share dishes, drinking glasses, cups, eating utensils, towels or bedding with other people in your home. ??? Wash thoroughly after use: After using these items, wash them thoroughly with soap and water or put them in the plumbing technician. Clean all high-touch surfaces every day. Clean high-touch surfaces in your isolation area (???sick room?? and bathroom) every day; let a caregiver clean and disinfect high-touch surfaces in other areas of the home. ??? Clean and disinfect: Routinely clean high-touch surfaces in your ???sick room?? and bathroom. Let someone else clean and disinfect surfaces in common areas, but not your bedroom and bathroom. ? If a caregiver or other person needs to clean and disinfect a sick person???s bedroom or bathroom, they should do so on an as-needed basis. The caregiver/other person should wear a mask and wait as long as possible after the sick person has used the bathroom. ? High-touch surfaces include phones, remote controls, counters, tabletops, doorknobs, bathroom fixtures, toilets, keyboards, tablets and bedside tables. ??? Clean and disinfect areas that may have blood, stool, or body fluids on them. ??? Household care advocate and disinfectants: Clean the area or item with soap and water or another detergent if it is dirty. Then, use a household disinfectant. ??? Be sure to follow the instructions on the label to ensure safe and effective use of the product. Many products recommend keeping the surface wet for several minutes to ensure germs are killed. Many also recommend precautions such as wearing gloves and making sure you have good ventilation during use of the product. ??? Most EPA-registered household disinfectants should be effective. A full list of disinfectants can be found here: https://www.epa.gov/pesticide-registration/cshw-f-nxkdihfkcezov-xfl-mlvsnzo-uo rs-cov-2 atorvastatin (a TOR va sta tin) Lipitor What is the most important information I should know about atorvastatin? You should not take atorvastatin if you are or , or if you have liver disease. Tell your doctor about all your current medicines and any you start or stop using. Many drugs can interact, and some drugs should not be used together. Atorvastatin can cause the breakdown of muscle tissue, which can lead to kidney failure. Call your doctor right away if you have unexplained muscle pain, tenderness, or weakness especially if you also have fever, unusual tiredness, or dark urine. What is atorvastatin? Atorvastatin is used together with diet to lower blood levels of 'bad' cholesterol (low-density lipoprotein, or LDL), to increase levels of 'good' cholesterol (high-density lipoprotein, or HDL), and to lower triglycerides (a type of fat in the blood). Atorvastatin is used to treat high cholesterol, and to lower the risk of stroke, heart attack, or other heart complications in people with type 2 diabetes, coronary heart disease, or other risk factors. Atorvastatin is used in adults and children who are at least 10 years old. Atorvastatin may also be used for purposes not listed in this medication guide. What should I discuss with my healthcare provider before taking atorvastatin? You should not use atorvastatin if you are allergic to it, or if you have liver disease. Do not use if you are . This medicine can harm an unborn baby. Use effective control to prevent . Stop taking this medicine and tell your doctor at once if you become . Do not breastfeed while you are taking atorvastatin. Tell your doctor if you have ever had: ?? liver problems; ?? muscle pain or weakness; ?? kidney disease; ?? diabetes; ?? a thyroid disorder; or ?? if you drink more than 2 alcoholic beverages daily. Atorvastatin can cause the breakdown of muscle tissue, which can lead to kidney failure. This happens more often in women, in older adults, or people who have kidney disease or poorly controlled hypothyroidism (underactive thyroid). Atorvastatin is not approved for use by anyone younger than 10 years old. How should I take atorvastatin? Follow all directions on your prescription label and read all medication guides or instruction sheets. Your doctor may occasionally change your dose. Use the medicine exactly as directed. Take the medicine at the same time each day, with or without food. Do not break an atorvastatin tablet before taking it. You may need to stop using atorvastatin for a short time if you have: ?? uncontrolled seizures; ?? an electrolyte imbalance (such as high or low potassium levels in your blood); ?? severely low blood pressure; ?? a severe infection or illness; or ?? surgery or a medical emergency. It may take up to 2 weeks before your cholesterol levels improve, and you may need frequent blood tests. Even if you have no symptoms, tests can help your doctor determine if this medicine is effective. Atorvastatin is only part of a complete treatment program that may also include diet, exercise, and weight control. Follow your doctor's instructions very closely. Store at room temperature away from moisture, heat, and light. What happens if I miss a dose? Use the medicine as soon as you can, but skip the missed dose if you are more than 12 hours late for the dose. Do not use two doses at one time. What happens if I overdose? Seek emergency medical attention or call the Poison Help line at . What should I avoid while taking atorvastatin? Avoid eating foods high in fat or cholesterol, or atorvastatin will not be as effective. Avoid drinking alcohol. It can raise triglyceride levels and may increase your risk of liver damage. Grapefruit may interact with atorvastatin and lead to unwanted side effects. Avoid drinking more than 1 liter of grapefruit juice while taking atorvastatin. What are the possible side effects of atorvastatin? Get emergency medical help if you have signs of an allergic reaction: hives; difficulty breathing; swelling of your face, lips, tongue, or throat. In rare cases, atorvastatin can cause a condition that results in the breakdown of skeletal muscle tissue, leading to kidney failure. Call your doctor right away if you have unexplained muscle pain, tenderness, or weakness especially if you also have fever, unusual tiredness, and dark colored urine. Also call your doctor at once if you have: ?? muscle weakness in your hips, shoulders, neck, and back; ?? trouble lifting your arms, trouble climbing or standing; ?? liver problems--upper stomach pain, weakness, tired feeling, loss of appetite, dark urine, jaundice (yellowing of the skin or eyes); or ?? kidney problems--little or no urinating, swelling in your feet or ankles, feeling tired or short of breath. Common side effects may include: ?? joint pain; ?? stuffy nose, sore throat; ?? diarrhea; or ?? pain in your arms or legs. This is not a complete list of side effects and others may occur. Call your doctor for medical advice about side effects. You may report side effects to FDA at 6-617-JCA-9956. What other drugs will affect atorvastatin? Certain other drugs can increase your risk of serious muscle problems, and it is very important that your doctor knows if you are using any of them. Tell your doctor about all your current medicines and any you start or stop using, especially: ?? other cholesterol-lowering medication; ?? antibiotic or antifungal medicine; ?? control pills; ?? medicine to prevent organ transplant rejection; ?? heart medication; or ?? medicine to treat hepatitis C or HIV. This list is not complete and many other drugs may affect atorvastatin. This includes prescription and wksx-bkb-yxeecze medicines, vitamins, and herbal products. Not all possible drug interactions are listed here. Where can I get more information? Your pharmacist can provide more information about atorvastatin. Remember, keep this and all other medicines out of the reach of children, never share your medicines with others, and use this medication only for the indication prescribed. Every effort has been made to ensure that the information provided by [employer]. [employer]') is accurate, up-to-date, and complete, but no guarantee is made to that effect. Drug information contained herein may be time sensitive. [employer] information has been compiled for use by healthcare practitioners and consumers in the [place] and therefore [employer] does not warrant that uses outside of the [place] are appropriate, unless specifically indicated otherwise. [employer]'s drug information does not endorse drugs, diagnose patients or recommend therapy. [employer] drug information is an informational resource designed to assist licensed healthcare practitioners in caring for their patients and/or to serve consumers viewing this service as a supplement to, and not a substitute for, the expertise, skill, knowledge and judgment of healthcare practitioners. The absence of a warning for a given drug or drug combination in no way should be construed to indicate that the drug or drug combination is safe, effective or appropriate for any given patient. [employer] does not assume any responsibility for any aspect of healthcare administered with the aid of information [employer] provides. The information contained herein is not intended to cover all possible uses, directions, precautions, warnings, drug interactions, allergic reactions, or adverse effects. If you have questions about the drugs you are taking, check with your doctor, nurse or pharmacist. Copyright 6266-3402 [employer]. Version: 22.. Revision Date: 03/09/2020. amlodipine (am SHANITA hayden) Garry Boudreaux What is the most important information I should know about amlodipine? Follow all directions on your medicine label and package. Tell each of your healthcare providers about all your medical conditions, allergies, and all medicines you use. What is amlodipine? Amlodipine is a calcium channel christopher that dilates (widens) blood vessels and improves blood flow. Amlodipine is used to treat chest pain (angina) and other conditions caused by coronary artery disease. Amlodipine is also used to treat high blood pressure (hypertension) in adults and children at least 6 years old. Lowering blood pressure may lower your risk of a stroke or heart attack. Amlodipine may also be used for purposes not listed in this medication guide. What should I discuss with my healthcare provider before taking amlodipine? You should not take amlodipine if you are allergic to it. Tell your doctor if you have ever had: ?? liver disease; or ?? a heart valve problem called aortic stenosis. Tell your doctor if you are or plan to become . It is not known whether amlodipine will harm an unborn baby. However, having high blood pressure during may cause complications such as diabetes or eclampsia (dangerously high blood pressure that can lead to medical problems in both mother and baby). The benefit of treating hypertension may outweigh any risks to the baby. Tell your doctor if you are . How should I take amlodipine? Follow all directions on your prescription label and read all medication guides or instruction sheets. Your doctor may occasionally change your dose. Use the medicine exactly as directed. Take the medicine at the same time each day, with or without food. Shake the oral suspension (liquid) before you measure a dose. Use the dosing syringe provided, or use a medicine dose-measuring device (not a kitchen spoon). Your blood pressure will need to be checked often. Your chest pain may become worse when you first start taking amlodipine or when your dose is increased. Call your doctor if your chest pain is severe or ongoing. If you are being treated for high blood pressure, keep using amlodipine even if you feel well. High blood pressure often has no symptoms. You may need to use blood pressure medicine for the rest of your life. Your hypertension or heart condition may be treated with a combination of drugs. Use all medications as directed and read all medication guides you receive. Do not change your doses or stop taking any of your medications without your doctor's advice. This is especially important if you also take nitroglycerin. Amlodipine is only part of a complete program of treatment that may also include diet, exercise, weight control, and other medications. Follow your diet, medication, and exercise routines very closely. Store at room temperature away from moisture, heat, and light. What happens if I miss a dose? Take the medicine as soon as you can, but skip the missed dose if you are more than 12 hours late for the dose. Do not take two doses at one time. What happens if I overdose? Seek emergency medical attention or call the Poison Help line at . Overdose symptoms may include rapid heartbeats, redness or warmth in your arms or legs, or fainting. What should I avoid while taking amlodipine? Avoid getting up too fast from a sitting or lying position, or you may feel dizzy. What are the possible side effects of amlodipine? Get emergency medical help if you have signs of an allergic reaction: hives; difficulty breathing; swelling of your face, lips, tongue, or throat. In rare cases, when you first start taking amlodipine, your angina may get worse or you could have a heart attack. Seek emergency medical attention or call your doctor right away if you have symptoms such as: chest pain or pressure, pain spreading to your jaw or shoulder, nausea, sweating. Call your doctor at once if you have: ?? pounding heartbeats or fluttering in your chest; ?? worsening chest pain; ?? swelling in your feet or ankles; ?? severe drowsiness; or ?? a light-headed feeling, like you might pass out. Common side effects may include: ?? dizziness, drowsiness; ?? feeling tired; ?? stomach pain, nausea; or ?? flushing (warmth, redness, or tingly feeling). This is not a complete list of side effects and others may occur. Call your doctor for medical advice about side effects. You may report side effects to FDA at 8-874-QRT-5627. What other drugs will affect amlodipine? Tell your doctor about all your other medicines, especially: ?? nitroglycerin; ?? simvastatin (Zocor, Simcor, Vytorin); or ?? any other heart or blood pressure medications. This list is not complete. Other drugs may affect amlodipine, including prescription and hfgn-aqk-tambtcu medicines, vitamins, and herbal products. Not all possible drug interactions are listed here. Where can I get more information? Your pharmacist can provide more information about amlodipine. Remember, keep this and all other medicines out of the reach of children, never share your medicines with others, and use this medication only for the indication prescribed. Every effort has been made to ensure that the information provided by [employer]') is accurate, up-to-date, and complete, but no guarantee is made to that effect. Drug information contained herein may be time sensitive. [employer] information has been compiled for use by healthcare practitioners and consumers in the [place] and therefore [employer] does not warrant that uses outside of the [place] are appropriate, unless specifically indicated otherwise. [employer]'s drug information does not endorse drugs, diagnose patients or recommend therapy. [employer] drug information is an informational resource designed to assist licensed healthcare practitioners in caring for their patients and/or to serve consumers viewing this service as a supplement to, and not a substitute for, the expertise, skill, knowledge and judgment of healthcare practitioners. The absence of a warning for a given drug or drug combination in no way should be construed to indicate that the drug or drug combination is safe, effective or appropriate for any given patient. [facility] does not assume any responsibility for any aspect of healthcare administered with the aid of information [employer] provides. The information contained herein is not intended to cover all possible uses, directions, precautions, warnings, drug interactions, allergic reactions, or adverse effects. If you have questions about the drugs you are taking, check with your doctor, nurse or pharmacist. Copyright 3149-5438 [facility]. Version: 15.. Revision Date: 02/10/2019. Emergency Awareness and Preventative Care STROKE is an EMERGENCY Every Minute Counts Act FAST and Check for these signs: FACE Does the face look uneven? ARM Does one arm drift down? SPEECH Does their speech sound strange? TIME Call at any sign of stroke Stroke Risk Factors Atrial Fibrillation (irregular heartbeat) Diabetes Family history of stroke Heart Disease Heavy alcohol use High Blood Pressure High Cholesterol Physical inactivity and obesity Smoking Cigarette Smoking The facts are clear, cigarette smoking will shorten your life. Smoking can cause many illnesses along the way. As a healthcare provider, we recommend that you stop smoking. Assistance with quitting is available by contacting 0-274-SLPF-NOW. This is a free resource providing counseling, support, and referral. Or you may contact your personal physician. National Suicide Prevention Lifeline: The National Suicide Prevention Lifeline is a national network of local crisis centers that provides free and confidential emotional support to people in suicidal crisis or emotional distress 24 hours a day, 7 days a week. Don't Wait! Stop a Heart Attack Before it Starts What is a heart attack? A heart attack is damage or to a part of the heart from severely decreased or lack of blood flow to the heart. Over time, arteries can become narrow from the buildup of fat and cholesterol, which is called plaque. The plaque can rupture causing a blood clot to form. When the blood clot forms, the artery can become severely narrowed or completely blocked, causing a heart attack. Heart attack is the leading cause of in the [place]. 85% of muscle damage occurs within the first 2 hours. Delay in the recognition of heart attack symptoms increases the chances of . Know the early symptoms of a heart attack: Nausea Feeling of fullness in chest Jaw Pain Pain that travels down one or both arms Fatigue/being tired Anxiety Back Pain Chest pressure, squeezing, or discomfort Shortness of breath Sweating, or a cold sweat Feeling of impending doom There are unusual signs of a heart attack, too! Women, the elderly, and diabetics may present with atypical symptoms: Fainting/dizziness Weakness Confusion Risk Factors for a Heart Attack Some heart disease risk factors, such as age and family history, cannot be changed. Others, like smoking and lack of exercise, can be changed. Smoking High Cholesterol High Blood Pressure Family History Obesity Age Gender (Males are at higher risk) Lack of Exercise Diabetes Diet Stress Excessive Alcohol Intake If you or someone you know is experiencing the signs and symptoms of a heart attack, DON???T DELAY. Call immediately and seek help. If someone collapses, perform CPR! Do not attempt to drive if you are having symptoms of heart attack. Hands-Only CPR Why Hands-Only CPR? Hands-Only CPR has been shown to be as effective as conventional CPR for cardiac arrests that occur outside of a hospital. Survival depends on immediately receiving CPR from someone nearby. How do you perform Hands-Only CPR? There are two easy steps: Call if you see a teen or adult collapse Push hard and fast in the center of the chest at a beat of 100 beats per minute. Save a life! 4 WAYS TO GET AHEAD OF SEPSIS SEPSIS is a MEDICAL EMERGENCY. Time matters! Infections put you and your family at risk for a life-threatening condition called sepsis. Sepsis is the body's extreme response to an infection. It is life-threatening, and without timely treatment, sepsis can rapidly lead to tissue damage, organ failure, and . Sepsis happens when an infection you already have-in your skin, lungs, urinary tract or somewhere else-triggers a chain reaction throughout your body. 1 PREVENT INFECTIONS Take good care of chronic conditions. Talk to your doctor about getting the recommended vaccines. 2 PRACTICE GOOD HYGIENE Wash your hands frequently. Keep cuts or open sores clean and covered until they are healed. 3 KNOW THE SYMPTOMS Confusion or disorientation Shortness of breath High heart rate Fever, shivering, or feeling very cold Extreme pain or discomfort Clammy or sweaty skin 4 ACT FAST Get medical care IMMEDIATELY if you suspect sepsis or if you have an infection that is not getting better or is getting worse. To learn more about sepsis and how to prevent infections, visit www.cdc.gov/sepsis. Test Results Laboratory or Other Results This Visit (last charted value for your 05/06/2020 visit) Hematology 05/06/2020 8:40 AM Platelet Count: 105 K/uL -- Normal range between ( 163 and 369 ) Patient Name:BRITTON SOTO I have received and understand this information and was given the opportunity to ask questions. Patient/Speech Language Pathology Assistant Name: Patient/Speech Language Pathology Assistant Signature: Relationship to Patient: Clinician/Hospital Speech Language Pathology Assistant Signature: Date: Electronically signed by Liam Chang Conversion Consultant In Ergonomics And Safety Sandritaner at 08/04/2022 2:26 PM CDT documented in this encounter Plan of Treatment Upcoming Encounters Date Type Department Care Team (Late st Contact Info) Description 04/03/2025 9:00 AM EST Office Visit [facility] - [address] [place] [address] Garrett Saeed MD [address] [place] [address] documented as of this encounter Visit Diagnoses Not on filedocumented in this encounter Care Teams Railroad Watchman Relationship Specialty Start Date End Date Arnie Rey MD PCP - General Family Medicine 03/30/23 documented as of this encounter
--- OUTSIDE RECORDS SUMMARY | 2024-09-22 10:39 | XMS_ITS | Encounter Summary ---
Author Organization [facility] Address [address] [place] [address] Care Team Providers Care Chief Medical Officer Name Role Phone Arnie Amezcua MD Primary Care Provider [phone] Encounter Details Date Type Department Care Team (Late st Contact Info) Description 05/06/2020 Transcribed Document [facility] [place] Family Medicine [facility] [place] [address] ProviderRojelio MD [address] [place] [address] Social History Tobacco Use Types Packs/Day Years Used Date Smoking Tobacco: Never Assessed Sex and Gender Information Value Date Recorded Sex Assigned at Not on file Legal Sex Male 1:39 PM CDT Gender Identity Not on file Sexual Orientation Not on file documented as of this encounter Miscellaneous Notes * Cerner Conversion Note - Historical ProviderMD - 05/06/2020 8:54 AM LICENSED CUSTOMS BROKER Pre Procedure Adult Entered On: 05/06/2020 9:03 EST Performed On: 05/06/2020 8:54 EST by MAGGIE SALVADOR Rn-Clinical Coordinator I Height and Weight, Clinical Dosing Height Source : Stated Height Entry Format : [place] Height, Feet : 5 ft(Converted to: 152 cm, 60 Inch) Height, Inches : 8 Inch(Converted to: 0 ft 8 Inch, 20.32 cm) Clinical Height : 172.72 cm Weight Source : Standing scale Weight Entry Format : [place] Clinical Dosing Weight : 94.55 kg Weight, Pounds : 208 lb Body Surface Area (BSA) : 2.08 m2 Body Mass Index : 31.7 kg/m2 (HI) [place] Body Weight : 67 kg MAGGIE SALVADOR Rn-Clinical Coordinator I - 05/06/2020 8:54 EST Health Histories Smoking Status : Never (less than 100 in lifetime; none in last 30 days) Smokeless Tobacco Status : Never MAGGIE SALVADOR Rn-Clinical Coordinator I - 05/06/2020 8:54 EST Social History (As Of: 05/06/2020 09:03:10 EST) Tobacco: Never (less than 100 in lifetime) Smoking Status. Never Smokeless Tobacco Status. (Last Updated: 05/06/2020 08:57:17 EST by MAGGIE SALVADOR Rn-Clinical Coordinator I) Alcohol: Alcohol Use History No. (Last Updated: 04/28/2014 11:17:53 EST by LORE MATTA RN) Substance Abuse: Drug Use Hx: No. Use in Last 12 Months: No. (Last Updated: 05/06/2020 08:57:24 EST by MAGGIE SALVADOR Rn-Clinical Coordinator I) Infectious Disease History Has the patient ever been tested for COVID-19? : Yes, Patient stated results Negative Date of COVID-19 test known? : Yes Date of COVID-19 Test : 05/03/2020 EST Does patient have symptoms of COVID-19? : No COVID19 Screening : No Experiencing Infectious Disease Symptoms : No symptoms Physical contact outside [place] in the last 30 days : No Infectious Disease History : Chicken pox/Shingles, Measles Tuberculosis Symptoms : None MAGGIE SALVADOR Rn-Clinical Coordinator I - 05/06/2020 8:54 EST COVID19 PreProcedure Screening Is this an Emergent or Add on Procedure? : No Date PreProcedure COVID-19 test known? : Yes Date of PreProcedure COVID-19 : 05/03/2020 EST Has patient been isolated since the test : Yes Exposed to COVID19 symptoms since test? : No MAGGIE SALVADOR Rn-Clinical Coordinator I - 05/06/2020 8:54 EST Anesthesia/Transfusion History Family History of Anesthesia Reaction : No prior transfusion(s) Transfusion History : Prior anesthesia without reaction Family History of Anesthesia Reaction : None MAGGIE SALVADOR Rn-Clinical Coordinator I - 05/06/2020 8:54 EST Functional Assessment Living Situation : Home Patient Lives With : Spouse Current Home Treatments : None MAGGIE SALVADOR Rn-Clinical Coordinator I - 05/06/2020 8:54 EST [place] Suicide Severity Rating Scale (C-SSRS) CSSRS Past Month Wish to be : No CSSRS Past Month Suicidal Thoughts : No CSSRS Lifetime Suicide Behavior : No Suicide Severity Rating Score : 0 Suicide Severity Rating : No Additional Care Required at this time MAGGIE SALVADOR Rn-Clinical Coordinator I - 05/06/2020 8:54 EST Psychosocial History Do You Have a History of the Following? : Anxiety Currently in Unsafe Situation : No MAGGIE SALVADOR Rn-Clinical Coordinator I - 05/06/2020 8:54 EST Advance Directive Patient has Advance Directive *Q : No, patient refuses Advance Directive information MAGGIE SALVADOR Rn-Clinical Coordinator I - 05/06/2020 8:54 EST Teaching/Learning Assessment Barriers To Learning : None evident MAGGIE SALVADOR Rn-Clinical Coordinator I - 05/06/2020 8:54 EST Education Topics, Periop Preadmission Perioperative Education [place] : Verbalizes understanding IV's : Verbalizes understanding Preprocedure Preparations : Verbalizes understanding Preprocedure Tests/Labs : Verbalizes understanding MAGGIE SALVADOR Rn-Clinical Coordinator I - 05/06/2020 8:54 EST General Info Support Person/Pt Rep Name : Daina Parrish - faustino Contact Password : 5 Star Mobile Support Person/Pt Rep Contact Information : [phone] Want Family/Rep/Phys Notified of Admit : No Emergency Contact #1 : . Emergency Contact #1 Phone Number : . Emergency Contact #1 Relationship : . Emergency Contact #2 : . Emergency Contact #2 Phone Number : . Emergency Contact #2 Relationship : . Primary Language : Jamaican Preferred Communication Mode : Verbal Communication Barrier : None Tailing Machine Operator Needed : No MAGGIE SALVADOR Rn-Clinical Coordinator I - 05/06/2020 8:54 EST Sleep Apnea Risk Assmt Hx of Obstructive Sleep Apnea Diagnosis : No Snore Loudly : No Tired, Fatigued, or Sleepy During Day : No Observed Stopping Breathing During Sleep : No Have/Are Being Treated for Hypertension : Yes BMI Greater Than 35 kg/m2 : No Age over 50 Years Old : Yes Neck Circumference Greater Than 40 cm : Yes Gender Male : Yes STOP-BANG Sleep Apnea Risk Level Score : 4 MAGGIE SALVADOR Rn-Clinical Coordinator I - 05/06/2020 8:54 EST Yoni Scale Yoni Sensory Perception : No impairment Yoni Moisture : Rarely moist Yoni Activity : Walks frequently Yoni Mobility : No limitation Yoni Nutrition : Adequate Yoni Friction and Shear : No apparent problem Yoni Score : 22 MAGGIE SALVADOR Rn-Clinical Coordinator I - 05/06/2020 8:54 EST Fall Risk Scales ABCs Fall Injury Risk Identification : None MARTÍNEZ Hx Falls Immediate/Within 3 Months : No Martínez Secondary Diagnosis : Yes MARTÍNEZ Use of Ambulatory Aid : None MARTÍNEZ IV Therapy or IV Access : Yes Martínez Gait/Transferring : Normal, bedrest, immobile Martínez Mental Status : Oriented to own ability Martí[place] Fall Risk Score : 35 MARTÍNEZ Fall Scale Risk Level : 25-45 Medium Risk [place] Fall Interventions : Adequate lighting, Assistive devices within reach, Bed in low position, Call device within reach, Personal items within reach, Reinforced to call for assistance before getting out of bed, Room free of clutter/spills MAGGIE SALVADOR Rn-Clinical Coordinator I - 05/06/2020 8:54 EST Valuables and Belongings Valuables and Belongings : Clothing Clothing : Common streetwear Clothing Disposition : Bedside, With patient MAGGIE SALVADOR Rn-Clinical Coordinator I - 05/06/2020 8:54 EST Electronically signed by [facility] Conversion Web Services Architect Cerner at 08/04/2022 2:25 PM CDT documented in this encounter Plan of Treatment Upcoming Encounters Date Type Department Care Team (Late st Contact Info) Description 04/03/2025 9:00 AM EST Office Visit [facility] [address] [facility] [address] [place] [address] Garrett Saeed MD [address] [facility] [address] [place] [address] documented as of this encounter Visit Diagnoses Not on filedocumented in this encounter Care Teams Chief Medical Officer Relationship Specialty Start Date End Date Arnie Amezcua MD PCP - General Family Medicine 03/30/23 documented as of this encounter
--- OUTSIDE RECORDS SUMMARY | 2024-09-22 10:39 | XMS_ITS | Encounter Summary ---
Author Organization [facility] Address [address] [place] [address] Care Team Providers Care Machined Parts Quality Inspector Name Role Phone Arnie Amezcua MD Primary Care Provider [phone] Encounter Details Date Type Department Care Team (Late st Contact Info) Description 05/06/2020 Transcribed Document [facility] [place] Family Medicine [facility] [place] [address] ProviderRojelio MD [address] [place] [address] Social History Tobacco Use Types Packs/Day Years Used Date Smoking Tobacco: Never Assessed Sex and Gender Information Value Date Recorded Sex Assigned at Not on file Legal Sex Male 1:39 PM CDT Gender Identity Not on file Sexual Orientation Not on file documented as of this encounter Miscellaneous Notes * Cerner Conversion Note - Historical ProviderMD - 05/06/2020 11:38 AM CROOK OPERATOR Nursing Discharge Summary Entered On: 05/06/2020 11:38 EST Performed On: 05/06/2020 11:38 EST by MAGGIE SALVADOR Rn-Clinical Coordinator I Discharge Documentation Discharge Date/Time : 05/06/2020 14:40 EST MAGGIE SALVADOR Rn-Clinical Coordinator I - 05/06/2020 14:56 EST Patient Disposition, General : Discharge Discharge To : Home with ambulatory/outpatient follow-up Mode Of Departure, General Discharge : Private vehicle Accompanied By, Discharge : Son IV Discontinued : Yes Personal Belongings With Patient : Yes Discharge Instructions Reviewed With, Opportunity For Questions Given : Patient, Son Patient Education Completed : Yes Teaching Method : Explanation Teaching Evaluation : Verbalizes understanding MAGGIE SALVADOR Rn-Clinical Coordinator I - 05/06/2020 11:38 EST documented in this encounter Plan of Treatment Upcoming Encounters Date Type Department Care Team (Late st Contact Info) Description 04/03/2025 9:00 AM EST Office Visit [facility] [facility] - [facility] [address] [facility] [address] [place] [address] Garrett Saeed MD [address] [place] [address] documented as of this encounter Visit Diagnoses Not on filedocumented in this encounter Care Teams Machined Parts Quality Inspector Relationship Specialty Start Date End Date Arnie Amezcua MD PCP - General Family Medicine 03/30/23 documented as of this encounter
--- OUTSIDE RECORDS SUMMARY | 2024-09-22 10:39 | XMS_ITS | Encounter Summary ---
Author Organization [facility] Address [address] [place] [address] Care Team Providers Care Laborer Tan House Name Role Phone Arnie Amezcua MD Primary Care Provider [phone] Encounter Details Date Type Department Care Team (Late st Contact Info) Description 05/06/2020 Transcribed Document [facility] [place] Family Medicine [facility] [place] [address] ProviderRojelio MD [address] [place] [address] Social History Tobacco Use Types Packs/Day Years Used Date Smoking Tobacco: Never Assessed Sex and Gender Information Value Date Recorded Sex Assigned at Not on file Legal Sex Male 1:39 PM CDT Gender Identity Not on file Sexual Orientation Not on file documented as of this encounter Miscellaneous Notes * Cerner Conversion Note - Historical ProviderMD - 05/06/2020 11:42 AM LOGISTICS PLANNING MANAGER DATE OF SERVICE: LEFT HEART CATHETERIZATION, IFR ASSESSMENT. INDICATION: Recurrent chest pain, requiring ER visit, progressive class 2/3 dyspnea, uncontrolled hypertension. Abnormal nuclear perfusion study showing anterior ischemia. ADDITIONAL REFERRING PHYSICIAN: Dr. Carolyn Rasheed. PROCEDURE: Standard left heart catheterization. TECHNIQUE: A 5/6-Malay sheath placed into the right radial artery. Po catheter was used for selective angiography of right coronary artery and obtaining pressures in the left ventricle. Left ventriculogram was not performed. FL 3.5 diagnostic catheter was used for selective angiography of left coronary artery. Following the diagnostic catheterization, iFR assessment was performed across the proximal LAD lesion. No intervention was performed. HEMODYNAMICS: Left ventricle 120/10 mmHg, aorta 120/60 mmHg. DIAGNOSES: 1. Moderate two vessel coronary artery atherosclerosis. Borderline severe LAD lesion confirmed the non-clinically significant with iFR value of 0.91. 2. Normal left ventricular filling pressure without gradient across the aortic valve. CORONARY ANATOMY: 1. Left main trunk: Minimally diseased. 2. LAD: Moderate caliber vessel, which gives rise to several small caliber diagonal branches before extending beyond the apex. There are borderline lesion 60% narrowing present in the proximal LAD, confirmed to be non-clinically significant with iFR value of 0.91. There is another 50% to 60% borderline lesion in the distal small caliber LAD. 3. Circumflex artery: Moderate caliber vessel, which gives rise to a small caliber high lateral and lateral branches, tiny posterolateral branch. Luminal irregularities present in the circumflex artery. 4. Right coronary artery: Large caliber vessel, which gives rise to a small caliber posterior descending artery, small caliber posterolateral branch. There is a 50% narrowing present in the mid right coronary artery. 5. Left ventricle: Normal left ventricular filling pressure without gradient across the aortic valve. IMPRESSION: Angiographically, the patient has nonsignificant borderline coronary artery disease in the proximal LAD confirmed by iFR value of 0.91 in the moderate stenosis in mid right coronary artery. There is no clear indication for revascularization. Risk factor modification, medical management is recommended. /[id number] Manas Hurt MD SSL/AQ / SSL / MODL /[id number] CC: Dr. Arnie Rasheed Electronically signed by [facility] Conversion Senior Java Engineer Cerner at 08/04/2022 2:16 PM CDT documented in this encounter Plan of Treatment Upcoming Encounters Date Type Department Care Team (Late st Contact Info) Description 04/03/2025 9:00 AM EST Office Visit [place] [facility] - [address] [facility] [facility] [address] [place] [address] Garrett Saeed MD [address] [facility] [address] [place] [address] documented as of this encounter Visit Diagnoses Not on filedocumented in this encounter Care Teams Laborer Tan House Relationship Specialty Start Date End Date Arnie Amezcua MD PCP - General Family Medicine 03/30/23 documented as of this encounter
--- OUTSIDE RECORDS SUMMARY | 2024-09-22 10:40 | XMS_ITS | Encounter Summary ---
Author Organization [facility] Address [address] [place] [address] Care Team Providers Care Sandwich Artist Name Role Phone Arnie Amezcua MD Primary Care Provider [phone] Encounter Details Date Type Department Care Team (Late st Contact Info) Description 05/06/2020 Transcribed Document [facility] [place] Family Medicine [facility] [place] [address] ProviderRojelio MD [address] [place] [address] Social History Tobacco Use Types Packs/Day Years Used Date Smoking Tobacco: Never Assessed Sex and Gender Information Value Date Recorded Sex Assigned at Not on file Legal Sex Male 1:39 PM CDT Gender Identity Not on file Sexual Orientation Not on file documented as of this encounter Miscellaneous Notes * Cerner Conversion Note - Historical ProviderMD - 05/06/2020 9:[address] DES[address] ENGINEER Patient: ROLY SOTO Age: 75 years Sex: Male : 1945 Associated Diagnoses: None Author: ASHLEY HURT MD-[facility] Basic Information Venereal Disease Investigator: Teresa Edmonds MD PCP: Dr. Watts Chief Complaint Abnormal Stress 04/22/2020 History of Present Illness 75 year old male with history of HTN, hypothyroidism has had intermittent chest pains for the past 2-3 months. Sx not clearly related to activity. Progressive FC II/III dyspnea. BP 150-170's at home despite recent increase in BP meds. gained ~ 14 lbs since last year. He was seen in the [facility] ER recently. Ruled out for [place]. Had outpatient stress test which was abnormal. He presents today for elective LHC with Dr. Ashley Hurt. Review of Systems Constitutional: Negative except as documented in history of present illness. Eye: Negative except as documented in history of present illness. Ear/Nose/Mouth/Throat: Negative except as documented in history of present illness. Respiratory: Negative except as documented in history of present illness. Cardiovascular: Negative except as documented in history of present illness. Gastrointestinal: Negative except as documented in history of present illness. Genitourinary: Negative except as documented in history of present illness. Hematology/Lymphatics: Negative except as documented in history of present illness. Endocrine: Negative except as documented in history of present illness. Immunologic: Negative except as documented in history of present illness. Musculoskeletal: Negative except as documented in history of present illness. Integumentary: Negative except as documented in history of present illness. Neurologic: Alert and oriented X4. Psychiatric: Negative except as documented in history of present illness. Health Status Allergies (1) Active Reaction morphine hallucination Home Medications (3) Active levothyroxine 100 mcg, Oral, Daily Lexapro 10 mg, Oral, Daily losartan 100 mg oral tablet 100 mg = 1 Tab, Oral, Daily Current medications: No qualifying data available Problem list: Active Problems (9) Back pain Bronchitis Cancer of colon Hard of hearing Hypertension Impaired vision Skin cancer Thyroid disease Vertigo Histories No education data available. Social & Psychosocial Habits Alcohol 04/28/2014 Alcohol Use History, Social Habits No Past Medical History: Active HTN - Hypertension ([id number]) Family History: Father Heart disease Mother Heart disease Brother Heart disease Procedure history: port a cath. Colonoscopy ([id number]). umbilical hernia repair. right hemicolectomy. repair of recurrent incisional hernia. Colectomy. Comments: 05/04/2020 10:16 JG WINN RN Reports 1/2 of colon removed s/t cancer Physical Examination VS/Measurements No qualifying data available General: Alert and oriented, No acute distress. Eye: Pupils are equal, round and reactive to light, Vision unchanged. HENT: Normocephalic, Oral mucosa is moist. Neck: Supple, Non-tender, No carotid bruit, No jugular venous distention. Respiratory: Lungs are clear to auscultation, Respirations are non-labored, Symmetrical chest wall expansion. Cardiovascular: Normal rate, Regular rhythm, No murmur, Good pulses equal in all extremities. Gastrointestinal: Soft, Non-distended, Normal bowel sounds. Musculoskeletal: Normal range of motion, Normal strength. Integumentary: Warm, Dry, Cherry Log. Neurologic: Alert, Oriented. Psychiatric: Cooperative, Appropriate mood & affect. Review / Management Lexiscan 04/22/2020 1. Consistent with mild to small area of anterior ischemia. 2. Nuclear ejection fraction estimated normal. 3. No transient ischemic dilatation. Results review: No qualifying data available. Impression and Plan IMPRESSION: Intermittent CP w/ progressive FC II/III dyspnea. Abnormal Lexiscan myoview consistent with anterior ischemia. Nl LV f(x). HTN-inadequate control. Lifestyle wt gain ~ 14 lbs. Hypothyroidism Colon Cancer; stage IV s/p colectomy PLAN; Left Heart Catheterization +/- PCI via right radial artery. Risks and Benefits discussed. Patient wishes to proceed. BP/HR log. Increase Toprol XL to 50 mg every evening. In 1-2 wks, add Norvasc 10 mg daily. Emphasize 3 gram low Na diet, lifestyle wt loss. L heart cath -60% LAD, iFR .91. 50% RCA. Add Atorvastatin 40 mg daily. documented in this encounter Plan of Treatment Upcoming Encounters Date Type Department Care Team (Late st Contact Info) Description 04/03/2025 9:00 AM EST Office Visit [facility] - [address] [place] [address] Garrett Saeed MD [address] [facility] [address] [place] [address] documented as of this encounter Visit Diagnoses Not on filedocumented in this encounter Care Teams Sandwich Artist Relationship Specialty Start Date End Date Arnie Amezcua MD PCP - General Family Medicine 03/30/23 documented as of this encounter
--- OUTSIDE RECORDS SUMMARY | 2024-09-22 10:40 | XMS_ITS | Referral Summary ---
Author Organization [facility] Address [address] [place] [address] Care Team Providers Care Appliance Service Supervisor Name Role Phone Arnie Amezcua MD Primary Care Provider [phone] Allergies Active Allergy Reactions Criticality Noted Date Comments Penicillin V Potassium 03/29/2022 Medications atorvastatin (LIPITOR) 40 MG tablet Take 1 tablet (40 mg total) by mouth daily. 02/12/2023 Active aspirin 81 MG chewable tablet Take 1 tablet (81 mg total) by mouth. Active furosemide (LASIX) 20 MG tablet Take 1 tablet (20 mg total) by mouth daily. 02/23/2023 Active losartan (COZAAR) 50 MG tablet Take 1 tablet (50 mg total) by mouth daily. 11/07/2022 Active metoprolol succinate (TOPROL-XL) 50 MG 24 hr tablet Take 1 tablet (50 mg total) by mouth daily. 05/04/2022 Active potassium chloride (KLOR-CON-M) 10 MEQ CR tablet Take 1 tablet (10 mEq total) by mouth daily. 09/21/2022 Active levothyroxine (SYNTHROID, LEVOTHROID) 100 MCG tablet Take 1 tablet (100 mcg total) by mouth Every morning on an empty stomach. Active empagliflozin (Jardiance) 10 mg tablet Take 1 tablet (10 mg total) by mouth daily. Active metFORMIN (GLUMETZA) 500 MG (MOD) 24 hr tablet Take 1 tablet (500 mg total) by mouth daily with breakfast. Active Active Problems Problem Noted Date Diagnosed Date Malignant neoplasm of overlapping sites of colon 03/29/2022 Cancer Staging:Clinical stage from 03/16/2007: cT4, cN1, cM0 - Unsigned Social History Tobacco Use Types Packs/Day Years Used Date Smoking Tobacco: Never Smokeless Tobacco: Never Alcohol Use Standard Drinks/Week Comments Never 0 (1 standard drink = 0.6 oz pur e alcohol) Interpersonal Safety Answer Date Record ed Family or friends hurt you Not on file 04/27 Family or friends insult you Not on file 03/2024 Family or friends threaten you Not on file 0 04/27/2023 Family or friends scream or curse at you Not on file 04/27/2023 Housing Stability Answer Date Recorded Living situation today Not on file Living situation problems Not on file 2023 Family and Community Support Answer Stalin e Recorded Help with Day to Day Activities Not on file 04/27/2023 Feeling Lonely or Isolated Not on file 04/27 Educational Attainment Answer Date Franko rded Speak language other than Croatian at home Not on file 04/27/2023 Want help with school or training Not on file 04/27/2023 Depression Answer Date Recorded PHQ-2 Risk Not on file 04/27/2023 Disabilities Answer Date Recorded Difficulty concentrating Not on file 024 Difficulty doing errands alone Not on file 0 04/27/2023 Substance Use Answer Date Recorded Used prescription meds for non-medical reasons N ot on file 04/27/2023 Used illegal drugs past 12 months Not on file 04/27/2023 Sex and Gender Information Value Date Recorded Sex Assigned at Not on file Legal Sex Male 1:39 PM CDT Gender Identity Not on file Sexual Orientation Not on file Last Filed Vital Signs Vital Sign Reading Time Taken Comments Blood Pressure 157/70 04/04/2024 9:20 AM EST Pulse 62 04/04/2024 9:20 AM EST Temperature 36.7 C (98 F) 04/04/2024 9:20 AM EST Respiratory Rate 18 04/04/2024 9:20 AM EST Oxygen Saturation 98% 04/04/2024 9:20 AM EST Inhaled Oxygen Concentration - - Weight 89.5 kg (197 lb 4.8 oz) 04/04/2024 9:20 A M EST Height 172.7 cm (5' 8 ) 04/04/2024 9:20 AM EST Body Mass Index 30 04/04/2024 9:20 AM EST Plan of Treatment Upcoming Encounters Date Type Department Care Team (Late st Contact Info) Description 04/03/2025 9:00 AM EST Office Visit [facility] [place] [address] [place] [address] Garrett Saeed MD [address] [place] [address] Insurance [employer] MCR ADV Care Teams Appliance Service Supervisor Relationship Specialty Start Date End Date Arnie Amezcua MD PCP - General Family Medicine 03/30/23
--- OUTSIDE RECORDS SUMMARY | 2024-09-22 10:40 | XMS_ITS | Clinical Summary ---
Author Organization [facility] Address [address] [place] [address] Care Team Providers Care Furnace Repair Mechanic Name Role Phone Arnie Amezcua MD Primary Care Provider [phone] Allergies Active Allergy Reactions Criticality Noted Date [...] from 03/16/2007: cT4, cN1, cM0 - Unsigned Family History Medical History Relation Name Comments No Known Problem Father Breast cancer Mother Relation Name Status Comments Father Mother Social History Tobacco Use Types Packs/Day Years [...] Date Franko rded Speak language other than Samoan at home Not on file 04/27/2023 Want [...] Description 04/03/2025 9:00 AM EST Office [facility] [address] [place] [address] Garrett Saeed MD [address] [place] [address] Health Maintenance Due Date Last Done Comments Depression Screening (12+) 1958 Hepatitis C Screening 01/17/1964 DTAP/TDAP/TD VACCINES (1 - Tdap) 1965 Pneumococcal 50+ years (1 of 1 - PCV) 01/17/1996 Shingles Vaccine (Zoster) (1 of 2) 01/17/1996 Respiratory Syncytial Virus (RSV) Adult or (1 - 1-dose 75+ series) 2021 COVID-19 VACCINE ( - season) 2023 01/08/2021, 07/08/2020, 06/10/2020 Falls Risk Screening 04/16/2024 Medicare Initial AWV [id number] 04/17/2024 Influenza Vaccine (Season Ended) 2024 02/12/20, 02/08/2016 Tobacco Cessation Counseling and Screening (12+) 04/04/2025 04/04/2024 Insurance [employer] MCR ADV Care Teams Furnace Repair Mechanic Relationship Specialty Start Date End Date Arnie Amezcua MD [phone] (work) PCP - General Family Medicine 03/30/23
--- OUTSIDE RECORDS SUMMARY | 2024-09-22 10:40 | XMS_ITS | Encounter Summary ---
Author Organization [facility] Address [address] [place] [address] Care Team Providers Care Research Affiliate Name Role Phone Arnie Amezcua MD Primary Care Provider [phone] Encounter Details Date Type Department Care Team (Late st Contact Info) Description 05/06/2020 Transcribed Document [facility] Family Medicine [facility] [place] [address] ProviderRojelio MD [address] [place] [address] Social History Tobacco Use Types Packs/Day Years Used Date Smoking Tobacco: Never Assessed Sex and Gender Information Value Date Recorded Sex Assigned at Not on file Legal Sex Male 1:39 PM CDT Gender Identity Not on file Sexual Orientation Not on file documented as of this encounter Miscellaneous Notes * Cerner Conversion Note - Historical ProviderMD - 05/06/2020 11:50 AM MEDICAL DRIVER Event Note Entered On: 05/06/2020 14:54 EST Performed On: 05/06/2020 11:50 EST by MAGGIE SALVADOR Rn-Clinical Coordinator I Event Note Description of Event : Received patient back from the [facility] laborer s/p heart cath. Rt radial TR band in place with 12 ml of air. No bleeding or hematoma noted. MAGGIE SALVADOR, Pratima-Clinical Coordinator I - 05/06/2020 14:53 EST documented in this encounter Plan of Treatment Upcoming Encounters Date Type Department Care Team (Late st Contact Info) Description 04/03/2025 9:00 AM EST Office Visit [facility] - [place] [address] [place] [address] Garrett Saeed MD [address] [address] documented as of this encounter Visit Diagnoses Not on filedocumented in this encounter Care Teams Research Affiliate Relationship Specialty Start Date End Date Arnie Amezcua MD PCP - General Family Medicine 03/30/23 documented as of this encounter
--- OUTSIDE RECORDS SUMMARY | 2024-09-22 10:40 | XMS_ITS | Encounter Summary ---
Author Organization [facility] Address [address] [place] [address] Care Team Providers Care Process Description Writer Name Role Phone Arnie Amezcua MD Primary Care Provider [phone] Encounter Details Date Type Department Care Team (Late st Contact Info) Description 05/06/2020 Transcribed Document [facility] [facility] [place] [address] ProviderRojelio MD [address] [place] [address] Social History Tobacco Use Types Packs/Day Years Used Date Smoking Tobacco: Never Assessed Sex and Gender Information Value Date Recorded Sex Assigned at Not on file Legal Sex Male 1:39 PM CDT Gender Identity Not on file Sexual Orientation Not on file documented as of this encounter Miscellaneous Notes * Cerner Conversion Note - Rojelio ProviderMD - 05/06/2020 1:13 PM MORNING SHOW PRODUCER Patient Education Materials Follows: Radial Site Care This sheet gives you [...] these instructions at home: Medicines ??? Take lkir-rvz-oxceked and prescription medicines only as told by your health care provider. Insertion site care ??? Follow instructions from your health care provider about how to take care of your insertion site. Make sure you: ? Wash your hands with soap and water before you change your bandage (dressing). If soap and water are not available, use hand burling and joining supervisor. ? Change your dressing as told by [...] care provider approves. ??? You may shower 24?48 hours after the procedure, or as directed [...] 05/05/2011 Document Revised: 05/08/2018 Document Reviewed: 05/08/2018 [employer] Patient Education ? 2020 [employer] Moderate Conscious Sedation, Adult, Care After These [...] you are awake and alert. ??? Take djhc-iqs-ougkpin and prescription medicines only as told by [...] 01/21/2014 Document Revised: 03/15/2018 Document Reviewed: 07/22/2016 [employer] Patient Education ? 2020 [employer]. Coronary Angiogram A coronary angiogram is an [...] including vitamins, herbs, eye drops, creams, and bqqs-fzd-lyekfal medicines. ??? Any problems you or family [...] Up to 2 hours before the procedure ? you may continue to drink clear liquids, such as water, clear fruit juice, black coffee, and plain tea. Eating and drinking restrictions Follow instructions from your health care provider about eating and drinking, which may include: ??? 8 hours before the procedure ? stop eating heavy meals or foods such as meat, fried foods, or fatty foods. ??? 6 hours before the procedure ? stop eating light meals or foods, such as toast or cereal. ??? 2 hours before the procedure ? stop drinking clear liquids. General instructions ??? [...] 10/07/2003 Document Revised: 03/15/2018 Document Reviewed: 01/12/2017 [employer] Patient Education ? 2019 [employer] It???s Cold and Flu Season ??? [...] to thoroughly wash your hands, use hand burling and joining supervisor. While handwashing is best, hand burling and joining supervisor helps to reduce the spread of germs when you are out and about. Have hand burling and joining supervisor in several locations so you can always [...] keep people from also getting sick. Don???t Palmer It! Sneezing this time of year is [...] a PCP near you, please visit [facility] [email or web address]. June 20, 2019 FAQ - Patient COVID-19 testing Why do I need [...] patients who test positive for COVID-19. If I'm a patient, should I wear a mask? [...] all positive cases are reported through the [facility] health department and the [place] Department for Public Health. Those organizations are [...] need during a recommended self-quarantine period. The patient's name is not revealed to anyone during the contact tracing interviews, even if a contact asks. Who would be considered a close contact ? According to the CDC, a close [...] a face covering and maintain social distancing - at least 6 feet from others at [...] and need to call 911, notify the wash plant operator that you have, or think you might [...] others. You should stay in a specific sick room if possible, and away from other people [...] (including before you enter a health care provider's office). ??? If you are caring for [...] clean your hands with an alcohol-based hand burling and joining supervisor that contains at least 60% alcohol. Clean your hands often. ??? Wash hands: Wash your hands often with soap and water for at least 20 seconds when visibly dirty. This is especially important after blowing your nose, coughing or sneezing, and going to the bathroom, and before eating or preparing food. ??? Hand burling and joining supervisor: Use an alcohol-based hand burling and joining supervisor with at least 60% alcohol, covering all [...] and water or put them in the research management associate. Clean all high-touch surfaces every day. Clean high-touch surfaces in your isolation area ( sick room and bathroom) every day; let a caregiver clean and disinfect high-touch surfaces in other areas of the home. ??? Clean and disinfect: Routinely clean high-touch surfaces in your sick room and bathroom. Let someone else clean and disinfect surfaces in common areas, but not your bedroom and bathroom. ? If a caregiver or other person needs to clean and disinfect a sick person's bedroom or bathroom, they should do so [...] or body fluids on them. ??? Household labor commissioner and disinfectants: Clean the area or item with soap and water or another detergent if it is dirty. Then, use a household disinfectant. ?? Be sure to follow the instructions on the label to ensure safe and effective use of the product. Many products recommend keeping the surface wet for several minutes to ensure germs are killed. Many also recommend precautions such as wearing gloves and making sure you have good ventilation during use of the product. ?? Most EPA-registered household disinfectants should be effective. A full list of disinfectants can be found here: https://www.epa.gov/pesticide-registration/gavz-e-khsqlhcadqnbl-gls-cmexpop-nz rs-cov-2 documented in this encounter Plan of Treatment Upcoming Encounters Date Type Department Care Team (Late st Contact Info) Description 04/03/2025 9:00 AM EST Office Visit [facility] [address] [facility] [address] [place] [address] Garrett Saeed MD [address] [place] [address] documented as of this encounter Visit Diagnoses Not on filedocumented in this encounter Care Teams Process Description Writer Relationship Specialty Start Date End Date Arnie Amezcua MD PCP - General Family Medicine 03/30/23 documented as of this encounter
--- OUTSIDE RECORDS SUMMARY | 2024-09-22 10:40 | XMS_ITS | Data Portability ---
Author Organization [facility] ADMIN Address [address] [place] [id number] Assessment No assessment recorded. Plan of Treatment Reminders Order Date Submit Date Provider Last Modified By Organization Details Last Modified Time Details Appointments None recorded. Lab C-reactive protein, quantitativ e, serum or plasma 2022 023 [email or web address] [facility], [address], [address], [place], [address], 3 10:19:44 ESR (erythrocyt e sedimentati on rate), blood 2022 023 [email or web address] [facility], [address], [address], [place], [address], 3 10:19:44 CBC w/ auto diff 2022 023 [email or web address] [facility], [address], [address], [place], [address], 3 10:19:45 CMP, serum or plasma 2022 023 [email or web address] [facility], [address], [address], [place], [address], 3 10:19:45 C-reactive protein, quantitativ e, serum or plasma 2022 023 [email or web address] [facility], [address], [address], [place], [address], 3 06:52:03 ESR (erythrocyt e sedimentati on rate), blood 2022 023 [place] [facility], [address], [address], [place], [address], 3 13:11:16 CMP, serum or plasma 2022 023 [place] [facility], [address], [address], [place], [address], 3 13:11:14 CBC w/ auto diff 2022 023 [place] [facility], [address], [address], [place], [address], 3 13:11:15 culture, blood 2022 023 [place] [facility], [address], [address], [place], [address], 3 15:10:10 culture, blood 2022 023 [email or web address] [facility], [address], [place], [address], 3 08:18:43 Referral None recorded. Procedures None recorded. Surgeries None recorded. Imaging None recorded. Medication Orders doxycycline hyclate [address] mg tablet [address] [facility], [address] [place] [address], [id number], 3 10:33:49 Patient TargetsNo targets recorded. Patient InstructionsNo instructions recorded. Reason for Referral None Reported. Results Created Date Observation Date Name Description Value Unit Range Abnormal Flag Note LastModifiedBy Organization Detail LastModifiedTime 10/31/19 23 10/30/2022 SED RATE sed rate auto 65 0-15 high Not Available [facility] ([facility]) [address], [place], [address], 10/30/2022 04:35:16 10/31/19 23 10/30/2022 C-ALEJANDRO CTIVE PROTE IN (CRP) C-reactive protein, quant 14.3 mg/dL 0.0-0. 9 high Not Available [facility] ([facility]) [address] [facility], [place], [address], 10/30/2022 05:14:50 10/31/19 23 10/30/2022 PROCA LCITO SID procalcitoni n (pct) 1.67 NG/mL 0.00-0 .5 high PCT 0.5 to 2 ng/mL : High risk of progr essio n to sever e syste bret infec tion (jose re sepsi s/ septi c shock ). PCT >/= 10 ng/mL : High likel ihood of sever e spesi s or septi c shock . Not Available [facility] ([facility]) [address] [facility], [place], [address], 10/30/2022 05:14:51 11/23/19 23 11/28/2022 PERIP HERAL BLOOD CULTU RE blood culture, routine FINAL REPORT Not Available [facility] ([facility]) [address] [facility], [place], [address], 11/28/2022 15:10:10 11/23/19 23 11/28/2022 PERIP HERAL BLOOD CULTU RE result 1 COMMEN T No aerob ic or anaer obic growt h in five days. Not Available [facility] ([facility]) [address] [facility], [place], [address], 11/28/2022 15:10:10 11/23/19 23 11/22/2022 PLEAS E NOTE please note Commen t The date and/o r time of colle ction was not indic ated on the requi sitio n as requi red by state and debbie al law. The date of recei pt of the speci men was used as the colle ction date if not suppl ied. Not Available [facility] ([facility]) [address] [facility], [place], [address], 11/28/2022 15:10:11 11/23/1911/28/2022 BLOOD CULTU REAURORA blood culture, routine FINAL REPORT Not Available [facility] ([facility]) [address] [facility], [place], [address], 11/28/2022 15:10:12 11/23/19 23 11/28/2022 BLOOD CULTU REAURORA result 1 COMMEN T No aerob ic or anaer obic growt h in five days. Not Available [facility] ([facility]) [address] [facility], [place], [address], 11/28/2022 15:10:12 12/28/19 23 12/28/2022 CMP14 +EGFR glucose 140 mg/dL 70-99 above high normal Not Available [facility] ([facility]) [address] [facility], [place], [address], 12/28/2022 13:11:14 12/28/19 23 12/28/2022 CMP14 +EGFR BUN 13 mg/dL 8-27 Not Available [facility] ([facility]) [address] [facility], [place], [address], 12/28/2022 13:11:14 12/28/19 23 12/28/2022 CMP14 +EGFR creatinine 0.99 mg/dL 0.76-1 .27 Not Available [facility] ([facility]) [address] [facility], [place], [address], 12/28/2022 13:11:14 12/28/1912/28/2022 CMP14 +EGFR eGFR 79 mL/mi n/1.7 3 >59 Not Available [facility] ([facility]) [address] [facility], [place], [address], 12/28/2022 13:11:14 09/1312/28/2022 CMP14 +EGFR BUN/creatini ne ratio 13 -24 Not Available [facility] ([facility]) [address] [facility], [place], [address], 12/28/2022 13:11:14 12/28/1912/28/2022 CMP14 +EGFR sodium 137 mmol/ L 134-14 4 Not Available [facility] ([facility]) [address] [place], [address], 12/28/2022 13:11:14 12/28/1912/28/2022 CMP14 +EGFR potassium 4.1 mmol/ L 3.5-5. 2 Not Available [facility] ([facility]) [address] [facility], [place], [address], 12/28/2022 13:11:14 12/28/19 23 12/28/2022 CMP14 +EGFR chloride 100 mmol/ L 96-106 Not Available [facility] ([facility]) [address] [facility], [place], [address], 12/28/2022 13:11:14 12/28/1912/28/2022 CMP14 +EGFR carbon dioxide, total 25 mmol/ L 20-29 Not Available [facility] ([facility]) [address] [facility], [place], [address], 12/28/2022 13:11:14 12/28/1912/28/2022 CMP14 +EGFR calcium 8.8 mg/dL 8.6-10 .2 Not Available [facility] ([facility]) [address] [place], [address], 12/28/2022 13:11:14 12/28/1912/28/2022 CMP14 +EGFR protein, total 7.7 g/dL 6.0-8. 5 Not Available [facility] ([facility]) [address] [place], [address], 12/28/2022 13:11:14 12/28/19 23 12/28/2022 CMP14 +EGFR albumin 3.0 g/dL 3.8-4. 8 below low normal Not Available [facility] ([facility]) [address] [facility] [place], [address], 12/28/2022 13:11:14 12/28/19 23 12/28/2022 CMP14 +EGFR globulin, total 4.7 g/dL 1.5-4. 5 above high normal Not Available [facility] ([facility]) [address] [facility] [place], [address], 12/28/2022 13:11:14 12/28/19 23 12/28/2022 CMP14 +EGFR A/G ratio 0.6 1.2-2. 2 below low normal Not Available [facility] ([facility]) [address] [place], [address], 12/28/2022 13:11:14 12/28/19 23 12/28/2022 CMP14 +EGFR bilirubin, total 0.4 mg/dL 0.0-1. 2 Not Available [facility] ([facility]) [address] [place], [address], 12/28/2022 13:11:14 12/28/19 23 12/28/2022 CMP14 +EGFR alkaline phosphatase 122 IU/L 44-121 above high normal Not Available [facility] ([facility]) [address] [place], [address], 12/28/2022 13:11:14 12/28/19 23 12/28/2022 CMP14 +EGFR AST (SGOT) 50 IU/L 0-40 above high normal Not Available [facility] ([facility]) [address] [place], [address], 12/28/2022 13:11:14 12/28/19 23 12/28/2022 CMP14 +EGFR ALT (SGPT) 27 IU/L 0-44 Not Available [facility] ([facility]) [address] [place], [address], 12/28/2022 13:11:14 12/28/1912/28/2022 CBC WITH DIFFE RENTI AL/PL ATELE T WBC 4.8 x10e3 /uL 3.4-10 .8 Not Available [facility] ([facility]) [address] [place], [address], 12/28/2022 13:11:15 12/28/19 23 12/28/2022 CBC WITH DIFFE RENTI AL/PL ATELE T RBC 3.81 x10e6 /uL 4.14-5 .80 below low normal Not Available [facility] ([facility]) [address] [facility], [place], [address], 12/28/2022 13:11:15 12/28/19 23 12/28/2022 CBC WITH DIFFE RENTI AL/PL ATELE T hemoglobin 10.8 g/dL 13.0-1 7.7 below low normal Not Available [facility] ([facility]) [address] [place], [address], 12/28/2022 13:11:15 12/28/1912/28/2022 CBC WITH DIFFE RENTI AL/PL ATELE T hematocrit 33.5 % 37.5-5 1.0 below low normal Not Available [facility] ([facility]) [address] [place], [address], 12/28/2022 13:11:15 12/28/1912/28/2022 CBC WITH DIFFE RENTI AL/PL ATELE T MCV 88 fL 79-97 Not Available [facility] ([facility]) [address] [place], [address], 12/28/2022 13:11:15 12/28/1912/28/2022 CBC WITH DIFFE RENTI AL/PL ATELE T MCH 28.3 pg 26.6-3 3.0 Not Available [facility] ([facility]) [address] [facility], [place], [address], 12/28/2022 13:11:15 12/28/19 23 12/28/2022 CBC WITH DIFFE RENTI AL/PL ATELE T MCHC 32.2 g/dL 31.5-3 5.7 Not Available [facility] ([facility]) [address] [facility], [place], [address], 12/28/2022 13:11:15 12/28/19 23 12/28/2022 CBC WITH DIFFE RENTI AL/PL ATELE T RDW 13.9 % 11.6-1 5.4 Not Available [facility] ([facility]) [address] [facility], [place], [address], 12/28/2022 13:11:15 12/28/19 23 12/28/2022 CBC WITH DIFFE RENTI AL/PL ATELE T platelets 119 x10e3 /uL 150-45 0 below low normal Not Available [facility] ([facility]) [address] [facility], [place], [address], 12/28/2022 13:11:15 12/28/19 23 12/28/2022 CBC WITH DIFFE RENTI AL/PL ATELE T neutrophils 58 % not estab. Not Available [facility] ([facility]) [address] [facility], [place], [address], 12/28/2022 13:11:15 12/28/19 23 12/28/2022 CBC WITH DIFFE RENTI AL/PL ATELE T lymphs 21 % not estab. Not Available [facility] ([facility]) [address] [place], [address], 12/28/2022 13:11:15 12/28/19 23 12/28/2022 CBC WITH DIFFE RENTI AL/PL ATELE T monocytes 10 % not estab. Not Available [facility] ([facility]) [address] [facility], [place], [address], 12/28/2022 13:11:15 12/28/19 23 12/28/2022 CBC WITH DIFFE RENTI AL/PL ATELE T eos 9 % not estab. Not Available [facility] ([facility]) [address] [facility], [place], [address], 12/28/2022 13:11:15 12/28/19 23 12/28/2022 CBC WITH DIFFE RENTI AL/PL ATELE T basos 2 % not estab. Not Available [facility] ([facility]) [address] [facility], [place], [address], 12/28/2022 13:11:15 12/28/19 23 12/28/2022 CBC WITH DIFFE RENTI AL/PL ATELE T immature cells [employer] Not Available [facility] ([facility]) [address] [place], [address], 12/28/2022 13:11:15 12/28/19 23 12/28/2022 CBC WITH DIFFE RENTI AL/PL ATELE T neutrophils (absolute) 2.8 x10e3 /uL 1.4-7. 0 Not Available [facility] ([facility]) [address] [facility], [place], [address], 12/28/2022 13:11:15 12/28/19 23 12/28/2022 CBC WITH DIFFE RENTI AL/PL ATELE T lymphs (absolute) 1.0 x10e3 /uL 0.7-3. 1 Not Available [facility] ([facility]) [address] [place], [address], 12/28/2022 13:11:15 12/28/19 23 12/28/2022 CBC WITH DIFFE RENTI AL/PL ATELE T monocytes(ab solute) 0.5 x10e3 /uL 0.1-0. 9 Not Available [facility] ([facility]) [address] [facility], [place], [address], 12/28/2022 13:11:15 12/28/1912/28/2022 CBC WITH DIFFE RENTI AL/PL ATELE T eos (absolute) 0.4 x10e3 /uL 0.0-0. 4 Not Available [facility] ([facility]) [address] [facility], [place], [address], 12/28/2022 13:11:15 12/28/1912/28/2022 CBC WITH DIFFE RENTI AL/PL ATELE T baso (absolute) 0.1 x10e3 /uL 0.0-0. 2 Not Available [facility] ([facility]) [address] [facility], [place], [address], 12/28/2022 13:11:15 12/28/19 23 12/28/2022 CBC WITH DIFFE RENTI AL/PL ATELE T immature granulocytes 0 % not estab. Not Available [facility] ([facility]) [address] [facility], [place], [address], 12/28/2022 13:11:15 12/28/19 23 12/28/2022 CBC WITH DIFFE RENTI AL/PL ATELE T immature grans (abs) 0.0 x10e3 /uL 0.0-0. 1 Not Available [facility] ([facility]) [address] [facility], [place], [address], 12/28/2022 13:11:15 12/28/19 23 12/28/2022 CBC WITH DIFFE RENTI AL/PL ATELE T NRBC [employer] Not Available [facility] ([facility]) [address] [facility], [place], [address], 12/28/2022 13:11:15 12/28/19 23 12/28/2022 CBC WITH DIFFE RENTI AL/PL ATELE T hematology comments: [employer] Not Available [facility] ([facility]) [address] [facility], [place], [address], 12/28/2022 13:11:15 12/28/19 23 12/28/2022 SEDIM ENTAT ION RATE- WESTE RGREN sedimentatio n rate-westerg shayan 36 mm/HR 0-30 above high normal Not Available [facility] ([facility]) [address] [facility], [place], [address], 12/28/2022 13:11:16 12/28/19 23 12/28/2022 C-ALEJANDRO CTIVE PROTE IN, QUANT C-reactive protein, quant 6 mg/L 0-10 Not Available [facility] ([facility]) [address] [facility], [place], [address], 12/28/2022 13:11:17 10/30/19 23 10/29/2022 XR, chest [facility] [address] [id number] Phone: Fax: Name: BRITTON STOO Exam Date: : [birth year] Age 77 Gender : M Access ion: [id number] Physic ken: ALONSO COOPER Facili ty: [facility] Facili ty HSV: Outpat ient Exam: CHEST PORTAB LE FINAL REPORT CLINIC AL HISTOR Y: eval for new infilt rate COMPAR CARLEEN: October 27, 2022. FINDIN GS: The heart is stable in size. The lung lopez demons trate no signif icant interv al change in the left lower lobe opacit y. There is no pneumo thorax . Osseou s struct ures unrema rkable . IMPRES SHELDON: There has been no signif icant interv al change . Contin ued follow -up is recomm ended. Authen ticate d and Electr onical ly Signed by Ian spence MD on 2022 05:04: 54 PMEAST YAZAN Dictat ed By: Ian Rivas Transc ribed By: Transc ribed On: 023 5:04 PM Electr onical ly signed by: Ian Rivas 023 Thank you for referr BRITTON Por[facility] to [facility]. Legall y authen ticate d by RAJANI SPENCE IV A MANNY 10-29 17:04: 54 CC'ed Logic: Orderi ng Provid er: NIKA [address] [place] [address] - Physical Therapy [address] [facility], [place], [address], 11/02/2022 13:44:48 Result Notes None recorded. Medical Equipment None Reported. Allergies Allergen ID Allergen Name Allergen Category Reaction Reaction Severity Criticality Documentation Date Start Date Code Code System Note Provider Name and Address Organization Details Recorded Time 01085 Substance with sulfonami de structure and antibacte rial mechanism of action (substanc e) medicatio n Not available Not available Not available 11/22/2022 [id number] [place] Evans [facility] & [place] 3 10:22:32 34421 Product containin g penicilli n (product) medicatio n Not available Not available Not available 11/22/2022 [address]74[address] 8001 [facility] [place] Evans [facility] & [place] 3 10:23:02 Medications Name Sig Start Date Stop Date Status Note LastModified by Organization Details LastModified Time losartan 50 mg tablet active Not Available Not Available Not Available atorvastatin 40 mg tablet active Not Available Not Available No t Available metformin 500 mg tablet active Not Available Not Available No t Available azithromycin 250 mg tablet active Not Available Not Availabl e Not Available metoprolol succinate ER 50 mg tablet,extended release 24 hr active Not Available Not Availabl e Not Available potassium chloride ER 10 mEq tablet,extended release active Not Available Not Available Not Available levothyroxine 100 mcg tablet active Not Available Not Availab le Not Available oxycodone-aceta minophen 5 mg-325 mg tablet active Not Available Not Available Not Available benzonatate 100 mg capsule TAKE 1 CAPSULE BY MOUTH THREE TIMES DAILY active Not Available Not Available No t Available cephalexin 500 mg capsule active Not Available Not Available N ot Available codeine 10 mg-guaifenesin 100 mg/5 mL oral liquid active Not Available Not Available Not Available furosemide 20 mg tablet active Not Available Not Available No t Available doxycycline hyclate 100 mg tablet Take 1 tablet twice a day by oral route. active Not Available Not Available No t Available daptomycin 500 mg intravenous solution active Not Available Not Available Not Available Jardiance 10 mg tablet active Not Available Not Available Not Available Vitals Date Recorded Oxygen saturation Oxygen saturation in Arterial blood by Pulse oximetry Heart rate Body temperature Systolic blood pressure Diastolic blood pressure Provider Name and Address Organization Details Last Updated DateTime 3 98 % 98 % 72 /min 98.9 [degF] 114 mm[Hg] 76 mm[Hg] Sudha Dorantes [facility] & [place] 3 10:21:50 Date Recorded Body height Oxygen saturation Oxygen saturation in Arterial blood by Pulse oximetry Heart rate Body temperature Provider Name and Address Organization Details Last Updated DateTime 3 187.96 cm 98 % 98 % 68 /min 98.1 [degF] Sudha Jose E [facility] & [place] 3 10:39:16 Date Recorded Body height Body mass index (BMI) Body weight Body temperature Oxygen saturation Oxygen saturation in Arterial blood by Pulse oximetry Heart rate Systolic blood pressure Diastolic blood pressure Provider Name and Address Organization Details Last Updated DateTime 3 187.96 cm 23.6 kg/m2 82426 g 98.1 [degF] 98 % 98 % 80 /min 110 mm[Hg] 78 mm[Hg] Linsey Hawkner [facility] & [place] 3 09:41:25 Date Recorded Body height Body mass index (BMI) Body weight Body temperature Heart rate Oxygen saturation Oxygen saturation in Arterial blood by Pulse oximetry Provider Name and Address Organization Details Last Updated DateTime 3 187.96 cm 23.6 kg/m2 23188 g 99.4 [degF] 75 /min 96 % 96 % Sudha SANDOVAL [facility] & [place] 3 10:21:11 Date Recorded Body height Oxygen saturation Oxygen saturation in Arterial blood by Pulse oximetry Heart rate Body temperature Systolic blood pressure Diastolic blood pressure Provider Name and Address Organization Details Last Updated DateTime 3 187.96 cm 98 % 98 % 67 /min 97.5 [degF] 130 mm[Hg] 76 mm[Hg] Sharon Miner [place] - [facility] - [place] & [place] 10:50:22 Social History None recorded. Functional Status None recorded. Mental Status None recorded. Family History Nothing Reported. Medical History No medical history recorded. 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 He underwent an I and D and hardware retention in the hospital. Based on his exam today, there is no evidence of any uncontroll ed infection in his back. Likewise, his inflammato ry markers improving overall. He complains of significan t global fatigue and weakness. Honestly, I do not think this is unexpected given his age and the severity of his initial infection. Neverthele ss, there was some question of fever as below. I will check blood cultures to make sure he is not developed any resurgent bacteremia or bacteremia from his PICC line. I will plan to continue weekly laboratory work. He will continue daptomycin 8 milligrams /kilogram intravenou sly daily for 6 weeks total at least-the tentative stop date will be 12/14. I can not add rifampin due to drug interactio ns. However, otherwise, it would be desirable given the orthopedic hardware retention. Return to clinic in 1 week. 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 There is no other evidence of infection on exam. [id number] Alonso York MD [facility] [address] [place] [id number] 11/29/2022 09:56:45 11/29/2022 10:48:10 Osteomyelitis of vertebra [id number] M46.20 This was due to Staphyloco ccus epidermidi s and complicate d by bacteremia . He underwent an I and D and hardware retention in the hospital. Overall, based on his history and exam today, his infection clearly appears to be improving. His inflammato ry markers still remain quite elevated, but are improving in aggregate. The plan will be for him to complete at least 2 more weeks of intravenou s daptomycin to complete a 6 week course. However, based off the trajectory of his inflammato ry marker elevation, I think he will likely need 8 or more weeks of intravenou s daptomycin , especially since rifampin can not be added. I will continue to monitor his laboratory work closely each week for clinical improvemen t and any toxicity with antibiotic . He will follow up with me again in 2 weeks. Regardless of when the daptomycin is stopped, he is going to need consolidat ion therapy for this infection given the retained hardware, as he will be at high risk for relapse. 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 He underwent an I and D and hardware retention in the hospital. Rifampin was not able to be added for biofilm penetratio n due to drug interactio ns. Has completed 6 weeks of intravenou s daptomycin . Based on his history and physical exam, I think his infection is controlled . However, his inflammato ry markers still remain quite elevated. Furthermor e, given the hardware retention, he is at very high risk of relapse of this infection. At this point, since he is clinically improved, I am going to stop the intravenou s daptomycin and remove his PICC line. I did discuss the case with spine surgery and suggested repeat imaging to make sure there is no uncontroll ed infection that is not apparent on physical exam. Spine surgery rejected my recommenda tion. Consequent ly, the patient is going to need long-term consolidat ion therapy followed by indefinite suppressiv e therapy. I will start doxycyclin e 100 mg p.o. b.i.d.. I advised the patient of the risk of phototoxic ity with this medication . I also advised him to take the medication with a full glass of water and to sit upright for 30 minutes after taken due to the risk of esophagiti s.. He will return to clinic in 2 weeks to see me again. I will surveil him closely for any worsening infection. I will repeat his inflammato ry markers and other basic laboratory work next visit. 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 He underwent an I and D and hardware retention in the hospital. Rifampin was not able to be added for biofilm penetratio n due to drug interactio ns. Has completed 6 weeks of intravenou s daptomycin . Based on his history and physical exam last visit, I thought he was much improved clinically . Consequent ly, I switched him from intravenou s daptomycin to consolidat ion doxycyclin e, which was done due to the retained hardware. He is here for follow-up on consolidat ion therapy. Based on his history and physical exam from today, his infection appears to be controlled . I will repeat his basic laboratory work and inflammato ry markers today. I will plan at least 3 months of consolidat ion doxycyclin e with a likely switch to chronic suppressiv e therapy at that time. Follow-up in 1 month if lab work from today appears okay. . 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 He underwent an I and D and hardware retention in the hospital. He completed a long-term course of daptomycin . I subsequent ly switch him to consolidat ion doxycyclin e given the retained hardware. However, he has stopped this of his own volition without discussing with me. I explained to him the risk of his infection coming back with stopping the antibiotic . He does not want to go back on the antibiotic . At this point, since there is nothing that I am offering him and he is not compliant with therapy, he can follow up with me as needed. 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 [id number] B95.7 As above Health Concerns Section Related Observation LastModified by Organization Detai ls LastModified Time None Recorded Concern Status LastModified by Organization Details LastModified Time None Recorded Advance Directives Directive None Recorded Payers Insurance Date Sequence Insurance Name Policy Number Policy Howell Covered Member ID Howell Member ID Guarantor Name 01/23/2023 1 [employer] (MEDICARE REPLACEMENT/A DVANTAGE - PPO) Britton Soto [id number] Britton Marroquint Notes Date Note Type Note Provider Name and Address Organization Details Recorded Time 11/22/2022 text/html This is a 77-yea r-old white male following up with me for a 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 While he was in the hospital, he underwent an I and D of the spine. Despite the bacteremia, no evidence of any metastatic infection was uncovered, including no evidence of endocarditis. After he was improved and all debridement was complete, a PICC line was placed and he was discharged to complete 6 weeks of intravenous daptomycin. Rifampin was not added, despite the presence of retained orthopedic hardware, due to drug interactions. The patient complains of continued global weakness. He states his appetite is poor. He thinks he may have had a fever this morning, but is not sure. he denies any undue pain anywhere. His back pain is improved. He has no drainage from his surgical incision over his back. he thinks he is tolerating the antibiotics fine. No nausea or vomiting with it. No rashes. No PICC line issues. Alonso York MD [address], [place], [phone], [facility] [place] & [place] 11/22/2022 10:44:57 11/29/2022 text/html This is a 77-yea r-old white male following up with ia for a 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 While he was in the hospital, he underwent an I and D of the spine. Despite the bacteremia, no evidence of any metastatic infection was uncovered, including no evidence of endocarditis. After he improved and all debridement was complete, a PICC line was placed and he was discharged to complete 6 weeks of intravenous daptomycin. Rifampin was not added, despite the presence of retained orthopedic hardware, due to drug interactions. Today will edvin his 2nd clinic follow-up. He is completed 4 weeks of a planned 6 week course of intravenous daptomycin. In contrast to last visit, he feels better today. His strength is better. His appetite is better. His weight is stabilized. He is not had any fever. His back pain is improved. He is also able to ambulate now without the walker. Apparently, all of his della were removed today. He denies any side effects with the daptomycin, including no nausea, rashes, or muscle aches. No PICC line issues. Alonso York MD [address], [place], [phone], [facility] & [place] 11/29/2022 10:55:19 12/14/2022 text/html This is a 77-yea r-old white male following up with me for a 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 While he was in the hospital, he underwent an I and D of the spine. Despite the bacteremia, no evidence of any metastatic infection was uncovered, including no evidence of endocarditis. After he improved and all debridement was complete, a PICC line was placed and he was discharged to complete 6 weeks of intravenous daptomycin. Rifampin was not added, despite the presence of retained orthopedic hardware, due to drug interactions. Today will edvin his 3rd clinic follow-up. He has completed 6 weeks of a planned 6 week course of intravenous daptomycin. Other than a poor appetite, he is doing well. His strength is much better. He is had no fevers. Has minimal back pain. His back incision remains healed. No side effects with the daptomycin. Alonso York MD [address], [place], [phone], [facility] & [place] 12/14/2022 10:32:55 12/27/2022 text/html This is a 77-yea r-old white male following up with ia for a 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 While he was in the hospital, he underwent an I and D of the spine. Despite the bacteremia, no evidence of any metastatic infection was uncovered, including no evidence of endocarditis. After he improved and all debridement was complete, a PICC line was placed and he was discharged to complete 6 weeks of intravenous daptomycin. Rifampin was not added, despite the presence of retained orthopedic hardware, due to drug interactions. As of his last clinic visit, though his inflammatory markers were still elevated, he appeared to be clinically much improved with no external signs of infection. Consequently, I switched him to consolidate and doxycycline given the retained orthopedic hardware. He is here for follow-up 2 weeks later on consolidation therapy. He is tolerating the doxycycline well without nausea, vomiting, diarrhea, or rashes. He is compliant with it. He states that his back pain is minimal. His surgical incision remains healed. There has been no drainage or redness. No other issues related to his back. He complains of a cough. Alonso York MD [address], [place], [phone], [facility] 12/27/2022 10:33:41 01/26/2023 text/html This is a 77-yea r-old white male following up with ia for a 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 While he was in the hospital, he underwent an I and D of the spine. Despite the bacteremia, no evidence of any metastatic infection was uncovered, including no evidence of endocarditis. After he improved and all debridement was complete, a PICC line was placed and he was discharged to complete 6 weeks of intravenous daptomycin. Rifampin was not added, despite the presence of retained orthopedic hardware, due to drug interactions. For the past month and a half, he has been on consolidation doxycycline given the retained orthopedic hardware. However, he recently stopped the doxycycline due to gastrointestinal upset. He did not tell me about this. He has chronic back pain, but has had no drainage or fever. No other issues. Alonso York MD [address], [place], [phone], [facility] & [place] 01/26/2023 11:02:06
--- NOTE | 2024-09-22 10:58 | EXP.PAIN.SOA ---
[facility] Disclaimer: The information contained in this section may have been updated after the patient was seen, as this information can be updated by other users. Medical History Colon cancer Congestive heart failure Diabetes mellitus Hypertension Sepsis Skin cancer Surgical History H/O hernia repair History of colonoscopy History of partial surgical removal of colon 2008 Previous back surgery Family History Mother Cancer Coronary artery disease Social History Smoking Status: Never smoker alcohol intake: never substance use type: denies use current occupational status: other Travel in the last 8 weeks?: None household members: spouse housing: house PM Subjective & Objective Subjective Subjective:: Patient presents today for follow-up of his second lumbar medial branch block bilaterally L4-L5 and L5-S1 on 09/02/2024. Today he rates his pain a 1 out of 10. Patient does state that he felt like this injection did much better than the even the initial 1. Patient states that it was pretty much immediate relief and feels like it is still helping. Patient rates at least 80% improvement. Patient does make mention that he has been experiencing chest pain and ended up being in the hospital last week as a precaution and had a nuclear stress test. Patient states that they ended up saying overall that it was within normal limits and let him leave. He is scheduled for his follow-up with the body shop manager on Sunday. Patient is prescribed compounded cream and baclofen 5 mg 3 times daily from our office. Patient states he really did not notice much improvement with the cream and is not continued that. Patient does also state that the muscle relaxer he is not needed to use where he has had improved pain since the injection. Patient does state that he does continue to have chronic neck issues and that has stiffness with limited range of motion. His Arnaud has been reviewed and is appropriate. Review of Systems: General: No recent weight changes, no fever, no sleep disturbances Respiratory: No cough, no shortness of air, no recurring pulmonary infections Cardiovascular/peripheral vascular: No chest pain, no palpitations, no edema, no shortness of breath Gastrointestinal: No new onset incontinence, normal bowel movements reported Genitourinary: No new onset incontinence Musculoskeletal: Low back pain, neck pain Psychiatric: [Normal mood/affect] Neurological: [Denies weakness in extremities], [denies balance issues] Pain at rest (0-10 scale): 1 Objective Objective:: Physical Exam: General: Alert and oriented x3, no acute distress, pleasant and cooperative Lungs: Respirations even and unlabored, symmetrical chest expansion Eyes: PERRL Musculoskeletal: Flexion and extension of lumbar [spine] somewhat guarded secondary to pain, [antalgic gait noted] Neurological: Speech clear, no gross sensory deficit Has patient had previous pain injection?: Yes Percent improvement in pain since last injection: 80% Conservative treatment options previously tried: Home exercise plan Length of treatment: Longer than 12 weeks Meds Home Medications and Allergies Home Medications ?Medication ?Instructions ?Recorded ?Confirmed ?Type aspirin 81 mg tablet,delayed 81 mg PO DAILY 09/27/22 09/02/24 History release atorvastatin 40 mg tablet 40 mg PO HS 09/27/22 09/02/24 History empagliflozin 10 mg tablet 10 mg PO DAILY Diabetes 09/27/22 09/02/24 History (Jardiance) furosemide 20 mg tablet 20 mg PO DAILY edema 09/27/22 09/02/24 History potassium chloride 10 mEq 10 meq PO DAILY 09/27/22 09/02/24 History tablet,extended release codeine 10 mg-guaifenesin 100 mg/5 5 ml PO Q6H PRN cough #120 mL 05/21/23 09/02/24 Rx mL oral liquid methocarbamol 750 mg tablet 1,500 mg (2 x 750 mg) PO TID 5 06/03/24 09/02/24 Rx days #30 tabs baclofen 5 mg tablet 5 mg PO TID #42 tabs 06/11/24 09/02/24 Rx levothyroxine 100 mcg tablet 100 mcg PO DAILY hypothyroidism 90 08/25/24 09/02/24 Rx days #90 tabs New Prescriptions to Start Prescriptions: Allergies Allergy/AdvReac Type Severity Reaction Status Date / Time Penicillins (PENICILLINS) Allergy Unknown Verified 05/21/23 08:28 cephalexin (From Keflex) Allergy Rash Verified 05/21/23 08:28 Assessment and Plan *Assessment and plan (1) Lumbar facet arthropathy: Status: Acute Category: Medical Code(s): M47.816 - Spondylosis without myelopathy or radiculopathy, lumbar region (2) Neck pain: Status: Acute Category: Medical Code(s): M54.2 - Cervicalgia Plan Patient has had significant improvement following his second lumbar medial branch block and does not require any additional injection therapy at this time. Patient will return to clinic in 1 month for reevaluation of symptoms and plan of care. Patient has been instructed to contact the clinic with any concerns before the next appointment. Dr. Mejia has reviewed this note and agrees with this plan of care. This note was dictated using voice recognition software and make contain errors or omissions. All injections are used with Lidocaine, Bupivacaine and dexamethasone. Occasionally urine drug screen is needed to verify patient's compliance with our office pain contract. This is ordered based off specific treatments related to chronic pain with the potential to abuse certain medications.
[2024-09-22 11:17] VITALS: BP 127/73; PULSE 67; RESP 18; O2SAT 97; BMI 28.4
== END 2024-09-22 23:59 | disposition home or self-care (01) ==
LOC: SC.PAIN 10:37
PROVIDERS: PCP Family Medicine; Visit Provider Nurse Practitioner Family
DX: M47.816 Spondylosis without myelopathy or radiculopathy, lumbar region (principal); M54.2 Cervicalgia; Z79.899 Other long term (current) drug therapy
CPT/HCPCS: 99212; G0463

== ENCOUNTER 2025-03-23 09:50 | Outpatient (CLI) | payer MEDICARE, SELFPAY ==
[2025-03-23 17:40] LABS: Hematocrit 35.8 % (42.0-52.0); Hemoglobin 11.8 g/dL (14.1-18.0); Immature Granulocytes % 0.2 %; Mean Corpuscular HGB Conc 33.0 g/dL (31.8-35.4); Mean Corpuscular Hemoglobin 29.9 pg (27.0-31.2); Mean Corpuscular Volume 90.6 fl (80-94); Nucleated Red Blood Cells % 0 %; Platelet Count 69 K/mm3 (142-424); Red Blood Count 3.95 M/mm3 (4.60-6.20); Red Cell Distribution Width-SD 47.8 fL; White Blood Count 4.2 K/mm3 (4.8-10.8)
[2025-03-23 18:07] LABS: Alanine Aminotransferase 17 U/L (12-78); Albumin Level 3.4 g/dl (3.5-5.0); Albumin/Globulin Ratio 0.9 (1.1-1.8); Alkaline Phosphatase 111 U/L (38-126); Anion Gap 15.3 mEq/L (5-15); Aspartate Amino Transferase 33 U/L (17-59); Bilirubin,Total 1.0 mg/dl (0.2-1.3); Blood Urea Nitrogen 15 mg/dl (9-20); Calcium 8.7 mg/dl (8.4-10.2); Carbon Dioxide 21 mmol/L (22.0-30.0); Chloride 106 mmol/L (98-107); Cholesterol 86 mg/dl (140-200); Creatinine,Serum 1.30 mg/dl (0.66-1.25); Estimated Glomerular Filt Rate 53 ml/min (>60); GFR (African American) 64 ML/MIN (>60); Globulin 3.7 g/dL (1.3-3.2); Glucose 118 mg/dl (74-100); HDL Cholesterol 37 mg/dl (40-60); Potassium 4.3 mmoL/L (3.5-5.1); Sodium 138 mmol/L (136-145); Total Protein,Serum 7.1 g/dl (6.3-8.2); Triglycerides 76 mg/dl (30-150)
[2025-03-23 18:36] LABS: Thyroid Stimulating Hormone 5.50 uIU/mL (0.465-4.68)
[2025-03-23 18:59] LABS: Hepatitis C Ab Qual. W/ RFX REACTIVE (Negative)
[2025-03-23 21:51] LABS: Hemoglobin A1C 7.3 % (4.0-6.0)
[2025-03-24 06:11] LABS: Hepatitis B Surface Antigen Negative (Negative)
== END 2025-03-23 23:59 | disposition home or self-care (01) ==
LOC: LAB.DROPOF 03-24 11:42
PROVIDERS: PCP Family Medicine; Visit Provider Family Medicine
DX: I10 Essential (primary) hypertension (principal); Z11.4 Encounter for screening for human immunodeficiency virus [HIV]; E11.9 Type 2 diabetes mellitus without complications; Z11.59 Encounter for screening for other viral diseases
CPT/HCPCS: 80053; 80061; 83036; 84443; 85025; 86803; 87340; 87389; 87522